=== PATIENT | female | born 1960 | race American Indian/Alaskan Native ===

== ENCOUNTER 2021-03-06 11:30 | Observation (INO) | payer MEDICARE ==
--- NOTE | 2021-03-06 11:41 | Emergency Department Report ---
ED Altered Mental Status HPI - General Chief Complaint: Medical Clearance Stated Complaint: daiylsis Time Seen by Provider: 03/06/21 11:33 - History of Present Illness Initial Comments: Patient presents by EMS secondary to altered mental status. They were called because the patient was altered and confused. They found the patient to be hypoglycemic with a glucose of 30. They administered an amp of D50. Glucose came up to 270 or so. Patient is now awake and alert. She is conversant. She states that she really just did not eat breakfast this morning because she did not have an appetite. She did not take her medications either. She does state that she takes pills for her diabetes. She did take them yesterday. Patient states she did not have much of an appetite yesterday either. She has no cough or congestion. No chest pain or shortness of breath and there is no vomiting or back pain. She has no dysuria frequency. She is currently on dialysis. The last time she was dialyzed was last Wednesday because "she was in the hospital and nobody called her to set it up." She states that somebody was "looking for a chair for her." - Related Data Home Medications Medication Instructions Recorded Confirmed Last Taken Atorvastatin [Lipitor] 40 mg PO QHS 02/03/21 02/18/21 02/17/21 21:00 carvediloL [Coreg] 12.5 mg PO DAILY 02/03/21 02/19/21 02/17/21 09:00 glipiZIDE [Glucotrol] 10 mg PO QDAY 02/03/21 02/18/21 02/17/21 18:00 amLODIPine 10 mg PO DAILY 02/19/21 02/19/21 Unknown Previous Rx's Medication Instructions Recorded Last Taken Type ALBUTEROL NEB's [Proventil 0.083% 2.5 mg IH Q4HRT PRN 10 Days #60 02/03/21 Unknown Rx NEBS] nebu Sodium Bicarbonate 1,300 mg PO TID 30 Days #180 tablet 02/03/21 Unknown Rx Acetaminophen [Acetaminophen TAB] 650 mg PO Q4H PRN tablet 02/26/21 Unknown Rx Epoetin Esvin-Epbx 10,000 Unit 10,000 unit IV FELI PRN vial 02/26/21 Unknown Rx [Retacrit] amLODIPine 10 mg PO DAILY #30 tablet 02/26/21 Unknown Rx carvediloL [Coreg] 12.5 mg PO BID #60 tablet 02/26/21 Unknown Rx Allergies Allergy/AdvReac Type Severity Reaction Status Date / Time ibuprofen AdvReac Unknown Verified 02/19/21 11:25 ED Review of Systems ROS: Stated complaint: daiylsis Other details as noted in HPI Comment: All other systems reviewed and negative Constitutional: denies: fever Eyes: denies: vision change ENT: denies: epistaxis Respiratory: denies: cough Cardiovascular: denies: chest pain Endocrine: denies: unexplained weight loss Gastrointestinal: denies: abdominal pain Genitourinary: denies: dysuria Musculoskeletal: denies: back pain Skin: denies: rash Neurological: denies: headache Hematological/Lymphatic: denies: easy bruising ED Past Medical Hx - Past Medical History Hx Hypertension: Yes Hx Congestive Heart Failure: No Hx Diabetes: Yes Hx Renal Disease: Yes (On dialysis) Hx Asthma: No Hx COPD: No - Surgical History Additional Surgical History: Toe amputation - Family History Family history: hypertension - Social History Smoking Status: Unknown if ever smoked - Medications Home Medications: Home Medications Medication Instructions Recorded Confirmed Last Taken Type ALBUTEROL NEB's [Proventil 0.083% 2.5 mg IH Q4HRT PRN 10 Days #60 02/03/21 02/19/21 Unknown Rx NEBS] nebu Atorvastatin [Lipitor] 40 mg PO QHS 02/03/21 02/18/21 02/17/21 21:00 History Sodium Bicarbonate 1,300 mg PO TID 30 Days #180 tablet 02/03/21 02/19/21 Unknown Rx carvediloL [Coreg] 12.5 mg PO DAILY 02/03/21 02/19/21 02/17/21 09:00 History glipiZIDE [Glucotrol] 10 mg PO QDAY 02/03/21 02/18/21 02/17/21 18:00 History amLODIPine 10 mg PO DAILY 02/19/21 02/19/21 Unknown History Acetaminophen [Acetaminophen TAB] 650 mg PO Q4H PRN tablet 02/26/21 Unknown Rx Epoetin Esvin-Epbx 10,000 Unit 10,000 unit IV FELI PRN vial 02/26/21 Unknown Rx [Retacrit] amLODIPine 10 mg PO DAILY #30 tablet 02/26/21 Unknown Rx carvediloL [Coreg] 12.5 mg PO BID #60 tablet 02/26/21 Unknown Rx ED Physical Exam - General Limitations: No Limitations, Other (Pulse ox noted and normal by EMS) General appearance: alert, in no apparent distress, other (Frail) - Head Head exam: Present: atraumatic, normocephalic - Eye Eye exam: Present: normal appearance, EOMI. Absent: scleral icterus - ENT ENT exam: Present: normal orophraynx, normal external ear exam - Neck Neck exam: Present: normal inspection. Absent: meningismus - Respiratory Respiratory exam: Present: normal lung sounds bilaterally. Absent: respiratory distress - Cardiovascular Cardiovascular Exam: Present: regular rate, normal rhythm - GI/Abdominal GI/Abdominal exam: Present: soft. Absent: tenderness - Extremities Exam Extremities exam: Present: normal capillary refill. Absent: calf tenderness - Back Exam Back exam: Absent: CVA tenderness (R), CVA tenderness (L) - Neurological Exam Neurological exam: Present: alert, oriented X3, CN II-XII intact. Absent: motor sensory deficit - Psychiatric Psychiatric exam: Present: normal affect, normal mood - Skin Skin exam: Present: warm, dry ED Course - Reevaluation(s) Reevaluation #1: 03/06/21 11:38 EMS was met upon arrival. Accu-Chek have been noted by EMS. Patient will be given food. Case management consult has been requested to help facilitate outpatient dialysis. Old records noted. Reevaluation #2: 03/06/21 12:31 Chemistries have been noted. Nephrology has been paged. 03/06/21 13:00 Nephrology paged. Reevaluation #3: 03/06/21 13:36 Case was discussed with Dr. Cali's nurse practitioner. They request admission to the hospitalist with dialysis planned for today. - Lab Data Result diagrams: 03/06/21 11:43 Lab Results 03/06/21 03/06/21 Range/Units 11:43 11:52 Sodium 132 L (137-145) mmol/L Potassium 4.6 (3.6-5.0) mmol/L Chloride 94.6 L (98-107) mmol/L Carbon Dioxide 19 L (22-30) mmol/L Anion Gap 23 mmol/L BUN 55 H (7-17) mg/dL Creatinine 11.5 H (0.6-1.2) mg/dL Estimated GFR 4 ml/min BUN/Creatinine Ratio 5 % Glucose 197 H (65-100) mg/dL POC Glucose 201 H (70-105) mg/dL Calcium 6.4 L (8.4-10.2) mg/dL - Medical Decision Making Patient presented with altered mental status and was found to have hypoglycemia. However it was also noted that she had not been dialyzed in over a week because outpatient dialysis was not arranged. She does have a creatinine that is almost tripled her baseline. Potassium is normal. There is no evidence of volume ov erload. I discussed the case with Dr. Cali's group and they requested admission for dialysis. Hospitalist was informed. We will proceed with admission. The hypoglycemia has been addressed, but we will continue to follow blood sugars to ensure she does not have refractory hypoglycemia. Critical Care Time: No Critical care attestation.: If time is entered above; I have spent that time in minutes in the direct care of this critically ill patient, excluding procedure time. ED Disposition Clinical Impression: ESRD on dialysis, Noncompliance Hyperglycemia due to type 2 diabetes mellitus Qualifiers: Diabetes mellitus half-way insulin use: without law enforcement officer use Qualified Code(s): E11.65 - Type 2 diabetes mellitus with hyperglycemia Disposition: 09 ADMITTED INPATIENT Is pt being admited?: Yes Condition: Stable Instructions: Diabetes Mellitus Type 2 in Adults (ED) Referrals: PRIMARY CARE, [Primary Care Provider] - 3-5 Days
[2021-03-06 12:14] LABS: Calcium 6.4 mg/dL (8.4-10.2)
--- NOTE | 2021-03-06 13:40 | History and Physical Report ---
History of Present Illness Chief complaint: I got sick History of present illness: 60 YO Female with HTN, DM, Asthma Mild Intermittent, ESRD noncompliant with initiation of dialysis presents ED for evaluation. Patient has diminished cognition and provides limited history. Patient history taken EMS staff, ED staff. As per staff the patient was found confused and a good Yarsani notified EMS. Upon arrival the patient was found to be in distress and hypoglycemic with glucose of 30. Patient was treated with D50 and subsequent transported to [facility] for further care and evaluation of the aforementioned symptoms. The patient was seen and evaluated in the emergency department. All lab and imaging studies reviewed. Patient was found to have improved cognition at the time my evaluation but was also found to have end-stage renal disease in need of dialysis, metabolic acidosis, and metabolic encephalopathy. Patient placed in observation status and admitted to medical floor. Nephrology team consulted in ED. Patient denies fever, chills, chest pain, palpitation, adductive cough, skin rash, recent contact, known exposure to COVID-19. All medication listed at time of admission has been reconciled. Advanced care planning conducted in ED. previous admission on 02/18/2021 reviewed. Past History Past Medical History: diabetes, ESRD, hypertension Past Surgical History: Other (To hypertension, dialysis access) Social history: . denies: smoking, alcohol abuse Family history: hypertension Medications and Allergies Allergies Allergy/AdvReac Type Severity Reaction Status Date / Time ibuprofen AdvReac Unknown Verified 02/19/21 11:25 Home Medications Medication Instructions Recorded Confirmed Last Taken Type ALBUTEROL NEB's [Proventil 0.083% 2.5 mg IH Q4HRT PRN 10 Days #60 02/03/21 02/19/21 Unknown Rx NEBS] nebu Atorvastatin [Lipitor] 40 mg PO QHS 02/03/21 02/18/21 02/17/21 21:00 History Sodium Bicarbonate 1,300 mg PO TID 30 Days #180 tablet 02/03/21 02/19/21 Unknown Rx carvediloL [Coreg] 12.5 mg PO DAILY 02/03/21 02/19/21 02/17/21 09:00 History glipiZIDE [Glucotrol] 10 mg PO QDAY 02/03/21 02/18/21 02/17/21 18:00 History amLODIPine 10 mg PO DAILY 02/19/21 02/19/21 Unknown History Acetaminophen [Acetaminophen TAB] 650 mg PO Q4H PRN tablet 02/26/21 Unknown Rx Epoetin Esvin-Epbx 10,000 Unit 10,000 unit IV FELI PRN vial 02/26/21 Unknown Rx [Retacrit] amLODIPine 10 mg PO DAILY #30 tablet 02/26/21 Unknown Rx carvediloL [Coreg] 12.5 mg PO BID #60 tablet 02/26/21 Unknown Rx Review of Systems Constitutional: no weight loss, no weight gain, no fever, no chills Ears, nose, mouth and throat: no ear pain, no ear discharge, no tinnitis, no nose pain, no nasal congestion Breasts: no change in shape, no swelling, no mass Cardiovascular: no chest pain, no orthopnea, no palpitations, no rapid/irregular heart beat, no edema, no shortness of breath Respiratory: no cough, no excessive sputum, no hemoptysis Gastrointestinal: no abdominal pain, no nausea, no vomiting, no diarrhea Genitourinary Female: no pelvic pain, no flank pain, no dysuria, no urinary frequency, no urgency Rectal: no pain, no incontinence Musculoskeletal: no neck stiffness, no neck pain, no low back pain Integumentary: no rash, no pruritis, no redness, no sores, no wounds Neurological: no head injury, no transient paralysis, no paralysis, no parathesias, no numbness, no tingling Psychiatric: no anxiety, no memory loss, no change in sleep habits, no sleep disturbances, no insomnia, no hypersomnia Endocrine: no cold intolerance, no polyphagia, no polydipsia Hematologic/Lymphatic: no easy bruising, no easy bleeding, no lymphadenopathy, no lymphedema Allergic/Immunologic: no urticaria, no allergic rhinitis, no persistent infections Exam - Constitutional General appearance: Present: mild distress, obese - EENT Eyes: Present: PERRL ENT: hearing intact, clear oral mucosa - Neck Neck: Present: supple, normal ROM - Respiratory Respiratory effort: normal Respiratory: bilateral: CTA - Cardiovascular Heart Sounds: Present: S1 & S2. Absent: rub, click - Extremities Extremities: pulses symmetrical, No edema Peripheral Pulses: within normal limits - Abdominal General gastrointestinal: Present: soft, non-tender, non-distended, normal bowel sounds Female genitourinary: Present: normal - Integumentary Integumentary: Present: clear, warm, dry - Musculoskeletal Musculoskeletal: gait normal, strength equal bilaterally - Psychiatric Psychiatric: appropriate mood/affect, intact judgment & insight - Neurologic Neurologic: CNII-XII intact, moves all extremities Results - Labs CBC & Chem 7: 03/06/21 11:43 Labs: Abnormal lab results 03/06/21 03/06/21 Range/Units 11:43 11:52 Sodium 132 L (137-145) mmol/L Chloride 94.6 L (98-107) mmol/L Carbon Dioxide 19 L (22-30) mmol/L BUN 55 H (7-17) mg/dL Creatinine 11.5 H (0.6-1.2) mg/dL Glucose 197 H (65-100) mg/dL POC Glucose 201 H (70-105) mg/dL Calcium 6.4 L (8.4-10.2) mg/dL Assessment and Plan - Patient Problems (1) ESRD on dialysis Current Visit: Yes Status: Acute Plan to address problem: Nephrology team consulted in ED, dialysis as per renal team, supportive care, avoid nephrotoxic agents. (2) Acidosis Current Visit: Yes Status: Acute Plan to address problem: BMP, urgent dialysis (3) DVT prophylaxis Current Visit: Yes Status: Acute Plan to address problem: SCDs bilateral lower extremities while in bed, patient is ambulatory (4) Advance care planning Current Visit: No Status: Acute Plan to address problem: Disease education conducted, care plan discussed, diagnoses discussed, prognosis discussed, patient is full code. Patient knowledges understanding agree with care plan, +30 minutes. Case management consulted in ED for assistance with discharge planning and arrangement of outpatient dialysis.
[2021-03-06] MEDS ORDERED: SODIUM CHLORIDE 0.9% 100 ML IV PRN (14:08)
[2021-03-06] MEDS ORDERED: ONDANSETRON 4 MG/2 ML INJ IV PRN (16:10)
[2021-03-06] MEDS ORDERED: ACETAMINOPHEN 325 MG TAB PO PRN (16:10)
[2021-03-06] MEDS ORDERED: oxyCODONE /ACETAMINOPHEN 5-325MG TAB PO PRN (16:10)
[2021-03-06] MEDS ORDERED: ALBUTEROL 2.5 MG/3 ML NEBU IH PRN (16:10)
[2021-03-06] MEDS ORDERED: HYDROmorphone 1 MG/1 ML INJ IV PRN (16:10)
[2021-03-06] MEDS ORDERED: EPOETIN ALFA-EPBX 10,000 UNIT/1 ML VIAL IV PRN (16:13)
[2021-03-06] MEDS: INSULIN LISPRO 100 UNIT/ML SUB-Q SCH (17:06)
--- NOTE | 2021-03-06 20:58 | Event Note ---
patient being admitted for end-stage kidney disease does not have a dedicated dialysis clinic, hemodialysis orders have been placed, Patient noted to be hypocalcemic, will give oral calcium, start the patient on vitamin D empirically along with calcitriol, Would also give 1 amp of calcium gluconate Check renal labs in the morning,
--- NOTE | 2021-03-06 21:00 | Consultation ---
Medications and Allergies Allergies Allergy/AdvReac Type Severity Reaction Status Date / Time ibuprofen AdvReac Unknown Verified 02/19/21 11:25 Home Medications Medication Instructions Recorded Confirmed Last Taken Type ALBUTEROL NEB's [Proventil 0.083% 2.5 mg IH Q4HRT PRN 10 Days #60 02/03/2102/19 Unknown Rx NEBS] nebu Atorvastatin [Lipitor] 40 mg PO QHS 02/03/21 02/18/21 02/17/21 21:00 History Sodium Bicarbonate 1,300 mg PO TID 30 Days #180 tablet 02/03/21 02/19/21 Unknown Rx carvediloL [Coreg] 12.5 mg PO DAILY 02/03/21 02/19/21 02/17/21 09:00 History glipiZIDE [Glucotrol] 10 mg PO QDAY 02/03/21 02/18/21 02/17/21 18:00 History amLODIPine 10 mg PO DAILY 02/19/21 02/19/21 Unknown History Acetaminophen [Acetaminophen TAB] 650 mg PO Q4H PRN tablet 02/26/21 Unknown Rx Epoetin Esvin-Epbx 10,000 Unit 10,000 unit IV FELI PRN vial 02/26/21 Unknown Rx [Retacrit] amLODIPine 10 mg PO DAILY #30 tablet 02/26/21 Unknown Rx carvediloL [Coreg] 12.5 mg PO BID #60 tablet 02/26/21 Unknown Rx Active Meds: Active Medications Acetaminophen (Acetaminophen 325 Mg Tab) 650 mg PO Q4H PRN PRN Reason: Pain MILD(1-3)/Fever >100.5/[facility]LEY Albuterol (Albuterol 2.5 Mg/3 Ml Nebu) 2.5 mg IH Q4HRT PRN PRN Reason: Shortness Of Breath Amlodipine Besylate (Amlodipine 10 Mg Tab) 10 mg PO DAILY [facility] Atorvastatin Calcium (Atorvastatin 40 Mg Tab) 40 mg PO QHS [facility] Calcitriol (Calcitriol 0.5 Mcg Cap) 0.5 mcg PO QDAY [facility] Calcium Carbonate/Glycine (Calcium Carbonate 500 Mg Tab Chew) 1,000 mg PO BID [facility] Carvedilol (Carvedilol 12.5 Mg Tab) 12.5 mg PO BID [facility] Dextrose (Dextrose 50% In Water (25gm) 50 Ml Syringe) 50 ml IV Q30MIN PRN; Protocol PRN Reason: Hypoglycemia Ergocalciferol (Ergocalciferol (Vit D2) 50,000 Unit Cap) 50,000 unit PO Fr [facility] Hydromorphone HCl (Hydromorphone 1 Mg/1 Ml Inj) 0.5 mg IV Q23H PRN PRN Reason: Pain , Severe (7-10) Sodium Chloride (Nacl 0.9%) 100 mls @ 999 mls/hr IV FELI PRN PRN Reason: Hypotension Insulin Human Lispro (Insulin Lispro 100 Unit/Ml) 0 unit SUB-Q ACHS [facility]; Protocol Last Admin: 03/06/21 17:06 Dose: Not Given Ondansetron HCl (Ondansetron 4 Mg/2 Ml Inj) 4 mg IV Q8H PRN PRN Reason: Nausea And Vomiting Oxycodone/Acetaminophen (Oxycodone /Acetaminophen 5-325mg Tab) 1 tab PO Q16H PRN PRN Reason: Pain, Moderate (4-6) Sodium Bicarbonate (Sodium Bicarbonate 650 Mg Tab) 1,300 mg PO TID [facility] Sodium Chloride (Sodium Chloride 0.9% 10 Ml Flush Syringe) 10 ml IV BID PEDRO Sodium Chloride (Sodium Chloride 0.9% 10 Ml Flush Syringe) 10 ml IV PRN PRN PRN Reason: LINE FLUSH Results - Lab Results 03/06/21 11:43 Most recent lab results Calcium 6.4 mg/dL (8.4-10.2) L 03/06/21 11:43
[2021-03-06] MEDS: DEXTROSE 50% IN WATER (25GM) 50 ML SYRINGE IV PRN ×2 (22:56→22:59)
[2021-03-07] MEDS: SODIUM BICARBONATE 650 MG TAB PO SCH ×3 (05:23→16:20)
[2021-03-07] MEDS: INSULIN LISPRO 100 UNIT/ML SUB-Q SCH ×4 (05:24→16:48)
[2021-03-07] MEDS: carvediloL 12.5 MG TAB PO SCH ×2 (05:24→09:15)
[2021-03-07] MEDS: CALCIUM CARBONATE 500 MG TAB CHEW PO SCH ×2 (05:25→09:15)
[2021-03-07] MEDS: CALCITRIOL 0.5 MCG CAP PO SCH ×2 (05:27→09:15)
[2021-03-07] MEDS ORDERED: ERGOCALCIFEROL (VIT D2) 50,000 UNIT CAP PO SCH (08:00)
--- NOTE | 2021-03-07 09:42 | Consultation ---
History of Present Illness - Reason for Consult Consult date: 03/07/21 end stage renal disease Requesting physician: JERICHO ORTIZ - History of Present Illness 60 YO Female with HTN, DM, Asthma Mild Intermittent, ESRD presented to the emergency room yesterday for evaluation . Patient had diminished cognition and provided limited history. Patient history taken EMS staff, ED staff. As per staff the patient was found confused and a good Scientology notified EMS. Upon arrival the patient was found to be in distress and hypoglycemic with glucose of 30. Patient was treated with D50 and subsequent transported to [facility] for further care and evaluation of the aforementioned symptoms. The patient was seen and evaluated in the emergency department. All lab and imaging studies reviewed. Patient was found to have improved cognition at the time my evaluation but was also found to have end-stage renal disease in need of dialysis, metabolic acidosis, and metabolic encephalopathy. Patient placed in observation status and admitted to medical floor. Patient received dialysis treatment yesterday. She does appear to be more alert today. Denies any shortness of breath. Patient states that she does not have a dialysis clinic at this time Past History Past Medical History: diabetes, ESRD, hypertension Past Surgical History: Other (To hypertension, dialysis access) Social history: . denies: smoking, alcohol abuse Family history: hypertension Medications and Allergies Allergies Allergy/AdvReac Type Severity Reaction Status Date / Time ibuprofen AdvReac Unknown Verified 03/07/21 13:19 Home Medications Medication Instructions Recorded Confirmed Last Taken Type ALBUTEROL NEB's [Proventil 0.083% 2.5 mg IH Q4HRT PRN 10 Days #60 02/03/2109/19 Unknown Rx NEBS] nebu Atorvastatin [Lipitor] 40 mg PO QHS 02/03/21 03/07/21 02/17/21 21:00 History Sodium Bicarbonate 1,300 mg PO TID 30 Days #180 tablet 02/03/21 03/07/21 Unknown Rx glipiZIDE [Glucotrol] 10 mg PO QDAY 02/03/21 03/07/21 02/17/21 18:00 History Acetaminophen [Acetaminophen TAB] 650 mg PO Q4H PRN tablet 02/26/21 03/07/21 Unknown Rx amLODIPine 10 mg PO DAILY #30 tablet 02/26/21 03/07/21 Unknown Rx carvediloL [Coreg] 12.5 mg PO BID #60 tablet 02/26/21 03/07/21 Unknown Rx calcitrioL [Rocaltrol] 0.5 mcg PO QDAY 30 Days #30 capsule 03/07/21 Unknown Rx Active Meds: Active Medications Acetaminophen (Acetaminophen 325 Mg Tab) 650 mg PO Q4H PRN PRN Reason: Pain MILD(1-3)/Fever >100.5/[facility] Albuterol (Albuterol 2.5 Mg/3 Ml Nebu) 2.5 mg IH Q4HRT PRN PRN Reason: Shortness Of Breath Atorvastatin Calcium (Atorvastatin 40 Mg Tab) 40 mg PO QHS [facility] Last Admin: 03/07/21 05:26 Dose: Not Given Calcitriol (Calcitriol 0.5 Mcg Cap) 0.5 mcg PO QDAY [facility] Last Admin: 03/07/21 09:15 Dose: 0.5 mcg Calcium Carbonate/Glycine (Calcium Carbonate 500 Mg Tab Chew) 1,000 mg PO BID [facility] Last Admin: 03/07/21 09:15 Dose: 1,000 mg Carvedilol (Carvedilol 12.5 Mg Tab) 12.5 mg PO BID [facility] Last Admin: 03/07/21 09:15 Dose: 12.5 mg Dextrose (Dextrose 50% In Water (25gm) 50 Ml Syringe) 50 ml IV Q30MIN PRN; Protocol PRN Reason: Hypoglycemia Last Admin: 03/06/21 22:59 Dose: 50 ml Ergocalciferol (Ergocalciferol (Vit D2) 50,000 Unit Cap) 50,000 unit PO Fr [facility] Last Admin: 03/07/21 09:15 Dose: 50,000 unit Hydromorphone HCl (Hydromorphone 1 Mg/1 Ml Inj) 0.5 mg IV Q23H PRN PRN Reason: Pain , Severe (7-10) Sodium Chloride (Nacl 0.9%) 100 mls @ 999 mls/hr IV FELI PRN PRN Reason: Hypotension Insulin Human Lispro (Insulin Lispro 100 Unit/Ml) 0 unit SUB-Q ACHS [facility]; Protocol Last Admin: 03/07/21 09:14 Dose: Not Given Ondansetron HCl (Ondansetron 4 Mg/2 Ml Inj) 4 mg IV Q8H PRN PRN Reason: Nausea And Vomiting Oxycodone/Acetaminophen (Oxycodone /Acetaminophen 5-325mg Tab) 1 tab PO Q16H PRN PRN Reason: Pain, Moderate (4-6) Sodium Bicarbonate (Sodium Bicarbonate 650 Mg Tab) 1,300 mg PO TID [facility] Last Admin: 03/07/21 09:15 Dose: 1,300 mg Sodium Chloride (Sodium Chloride 0.9% 10 Ml Flush Syringe) 10 ml IV BID [facility] Last Admin: 03/07/21 09:15 Dose: 10 ml Sodium Chloride (Sodium Chloride 0.9% 10 Ml Flush Syringe) 10 ml IV PRN PRN PRN Reason: LINE FLUSH Exam - Vital Signs Vital signs: Vital Signs BP Pulse Ox 154/85 95 03/06/21 20:00 03/06/21 20:00 - General Appearance General appearance: well-developed, well-nourished, appears stated age EENT: PERRL, mucous membranes moist Neck: Present: neck supple, trachea midline, Other (IJ PermCath in place). Absent: JVD/HJR, Masses Respiratory: Clear to Ascultation Heart: regular, normal heart rate Gastrointestinal: Present: normal, normoactive bowel sounds Integumentary: no rash, other (1+ edema) Results - Lab Results 03/07/21 04:40 Most recent lab results Calcium 6.0 mg/dL (8.4-10.2) L 03/07/21 04:40 Assessment and Plan Impression * End-stage renal disease on maintenance hemodialysis * Altered mental status * Hypoglycemia * Hypertension * Fluid overload * COVID-19 infection Recommendations Patient had uneventful hemodialysis yesterday Continue dialysis on TTS schedule while in-house Remove fluid as tolerated with dialysis Management of COVID-19 infection as per primary team Avoid nephrotoxins Adjust diet and meds for ESRD state Binders with meals Epogen with dialysis Thank you very much for the consultation. Shall follow along with you
[2021-03-07] MEDS ORDERED: amLODIPine 10 MG TAB PO SCH (10:00)
[2021-03-07] MEDS ORDERED: SODIUM CHLORIDE 0.9% 100 ML IV PRN (10:00)
[2021-03-07 16:28] VITALS: BP 111/68
--- NOTE | 2021-03-07 16:43 | Discharge Summary ---
Providers - Providers Date of Admission: 03/06/21 13:38 Attending physician: JERICHO ORTIZ MD 03/06/21 11:33 Consult to Case Management [CONS] Stat Services Needed at Discharge: Other Notified:: secretary bookkeeper Additional Physician Instructions: outpatient dialysis 03/06/21 14:59 Consult to Physician [CONS] Routine Comment: Consulting Provider: KASSY CHAWLA Physician Instructions: Reason For Exam: esrd Primary care physician: SWEET DOUGH MIXER Hospitalization Condition: Stable Exam - Constitutional Vitals: Temp Pulse Resp BP Pulse Ox 100.5 F H 95 H 18 111/68 100 03/07/21 11:38 03/07/21 11:38 03/07/21 04:35 03/07/21 15:11 03/07/21 15:11 Plan Care Plan Goals: You have been accepted at [facility] for dialysis on Mondays, Wednesdays, and Fridays at 10:30 AM. Your first treatment is set up for WednesdayMarch 10 at 10:30 AM. You can call [phone] for more information. If you are unable to receive dialysis at this center, report the nearest emergency department to get dialysis. Follow up with: ANTOINE GARCIA MD [Primary Care Provider] - 3-5 Days Prescriptions: calcitrioL [Rocaltrol] 0.5 mcg PO QDAY 30 Days #30 capsule
== END 2021-03-07 17:22 | disposition home or self-care (01) ==
LOC: ED 11:30 → 3A 13:38 → 4A 20:16
PROVIDERS: ADMIT Internal Medicine; ATTEND Student in an Organized Health Care Education/Training Program
DX: U07.1 COVID-19 (principal); I12.0 Hypertensive chronic kidney disease with stage 5 chronic kidney disease or end stage renal disease; N18.6 End stage renal disease; E11.22 Type 2 diabetes mellitus with diabetic chronic kidney disease; E11.65 Type 2 diabetes mellitus with hyperglycemia; Z79.899 Other long term (current) drug therapy; Z98.890 Other specified postprocedural states; Z99.2 Dependence on renal dialysis
CPT/HCPCS: 36415; 80048; 82962; 96374; 99284; G0257; G0378; J3490; U0003

== ENCOUNTER 2021-03-26 19:08 | Observation (INO) | payer MEDICARE ==
--- NOTE | 2021-03-26 20:02 | Emergency Department Report ---
ED General Adult HPI - General Chief complaint: Altered Mental Status Stated complaint: LETHARGIC Time Seen by Provider: 03/26/21 19:44 Source: EMS Mode of arrival: Stretcher Limitations: Altered Mental Status - History of Present Illness Initial comments: Chief complaint: "I keep soiling myself." Lethargy shortness of breath HPI: Renny Cho provided history via phone This is a 60-year-old female with history of end-stage renal disease on hemodialysis, hypertension, diabetes mellitus, blindness, medication noncomplian ce, COVID-19 who presents with lethargy, shortness of breath. Since discharge 13 days ago from this hospital, patient has had lethargy. She has had fecal incontinence. She has mostly been bed bound. She has slept most of the day for the past 2 weeks. Daughter called 911 for worsening confusion and shortness of breath. Patient tells me that she "keeps pulling herself". She also has mild frontal headache. Patient tells me that she does not go to dialysis due to lack of transportation. I spoke with daughter. Patient chooses not to go to dialysis. She does not have a instruments sales representative. She has mostly been overall noncompliant with outpatient dialysis care due to her own volition. She does continue to make urine. During most recent admission this hospital earlier this month, patient was diagnosed with COVID-19 infection, community-acquired pneumonia. She required oxygen due to hypoxia at that time. Of note patient was admitted 4 times to this hospital between February 02 and March 09. -: Gradual, days(s) (13 days since discharge from the hospital.) Severity scale (0 -10): 0 Consistency: constant Improves with: none Worsens with: none Associated Symptoms: other (Diarrhea, lethargy, failure to thrive, dyspnea) Treatments Prior to Arrival: other (EMS transport) - Related Data Home Medications Medication Instructions Recorded Confirmed Last Taken Atorvastatin [Lipitor] 40 mg PO QHS 02/03/21 03/12/21 02/17/21 21:00 glipiZIDE [Glucotrol] 10 mg PO QDAY 02/03/21 03/12/21 02/17/21 18:00 Previous Rx's Medication Instructions Recorded Last Taken Type Sodium Bicarbonate 1,300 mg PO TID 30 Days #180 tablet 02/03/21 Unknown Rx amLODIPine 10 mg PO DAILY #30 tablet 02/26/21 Unknown Rx carvediloL [Coreg] 12.5 mg PO BID #60 tablet 02/26/21 Unknown Rx calcitrioL [Rocaltrol] 0.5 mcg PO QDAY 30 Days #30 capsule 03/07/21 Unknown Rx Sevelamer Carbonate [Renvela] 800 mg PO AC #90 tablet 03/13/21 Unknown Rx cefUROXime [Ceftin] 250 mg PO Q12H #4 tablet 03/13/21 Unknown Rx Allergies Allergy/AdvReac Type Severity Reaction Status Date / Time ibuprofen AdvReac Unknown Verified 03/10/21 14:08 ED Review of Systems ROS: Stated complaint: LETHARGIC Other details as noted in HPI Comment: All other systems reviewed and negative Constitutional: malaise Respiratory: denies: cough, shortness of breath Cardiovascular: denies: chest pain Gastrointestinal: diarrhea. denies: abdominal pain, nausea, vomiting Neurological: headache ED Past Medical Hx - Past Medical History Previous Medical History?: Yes Hx Hypertension: Yes Hx Congestive Heart Failure: No Hx Diabetes: Yes Hx Renal Disease: Yes (On dialysis) Hx Asthma: No Hx COPD: No - Surgical History Past Surgical History?: Yes Additional Surgical History: Toe amputation - Social History Smoking Status: Never Smoker - Medications Home Medications: Home Medications Medication Instructions Recorded Confirmed Last Taken Type Atorvastatin [Lipitor] 40 mg PO QHS 02/03/21 03/12/21 02/17/21 21:00 History Sodium Bicarbonate 1,300 mg PO TID 30 Days #180 tablet 02/03/21 03/12/21 Unknown Rx glipiZIDE [Glucotrol] 10 mg PO QDAY 02/03/21 03/12/21 02/17/21 18:00 History amLODIPine 10 mg PO DAILY #30 tablet 02/26/21 03/12/21 Unknown Rx carvediloL [Coreg] 12.5 mg PO BID #60 tablet 02/26/21 03/12/21 Unknown Rx calcitrioL [Rocaltrol] 0.5 mcg PO QDAY 30 Days #30 capsule 03/07/21 03/12/21 Unknown Rx Sevelamer Carbonate [Renvela] 800 mg PO AC #90 tablet 03/13/21 Unknown Rx cefUROXime [Ceftin] 250 mg PO Q12H #4 tablet 03/13/21 Unknown Rx ED Physical Exam - General Limitations: Altered Mental Status General appearance: alert, in no apparent distress - Head Head exam: Present: atraumatic, normocephalic - Eye Eye exam: Present: normal appearance - ENT ENT exam: Present: mucous membranes moist - Neck Neck exam: Present: normal inspection, full ROM - Respiratory Respiratory exam: Present: normal lung sounds bilaterally. Absent: respiratory distress, wheezes, rales, rhonchi - Cardiovascular Cardiovascular Exam: Present: regular rate, normal rhythm, normal heart sounds, other (Right-sided permacath, site without evidence of infection no erythema no purulence). Absent: systolic murmur, diastolic murmur, rubs, gallop - GI/Abdominal GI/Abdominal exam: Present: soft, normal bowel sounds. Absent: distended, tenderness, guarding, rebound - Extremities Exam Extremities exam: Present: normal inspection - Neurological Exam Neurological exam: Present: alert, other (Oriented to name and situation unclear of place and date) - Psychiatric Psychiatric exam: Present: normal mood, flat affect - Skin Skin exam: Present: warm, dry, intact, normal color. Absent: rash ED Course Vital Signs 03/26/21 03/26/21 19:42 20:20 Temperature 98.2 F 99.1 F Pulse Rate 81 80 Respiratory 19 14 Rate Blood Pressure 116/67 116/68 [Left] O2 Sat by Pulse 100 99 Oximetry ED Medical Decision Making - Lab Data Result diagrams: 03/26/21 20:03 03/26/21 20:03 - EKG Data -: EKG Interpreted by [facility] EKG shows normal: sinus rhythm Rate: normal - EKG Data 03/26/21 22:10 EKG obtained 2200 EKG interpreted by me Rate 80 bpm normal sinus rhythm with prolonged SC interval normal QTC right axis deviation no ST elevation normal amplitude T waves - Radiology Data Radiology results: report reviewed Patient Name: MIRTHA ORTA Gender: Female Date of : 1960 Referring Provider: TAMRA GUNDERSON Organization: [facility] Accession Number: [id number] Requested Date: March 26, 2021 19:44 Report Status: Final Requested Procedure: 1 Procedure Description: XR chest 1V ap Modality: XR Findings Reporting MD: Marcello Bedoya Dictation Time: March 26, 2021 19:45 Almond Blancher Operator: Not available Block Mechanic Date: CHEST 1 VIEW 03/26/2021 8:00 PM INDICATION / CLINICAL INFORMATION: ESRD on hemodialysis, dyspnea. COMPARISON: 03/09/2021. FINDINGS: SUPPORT DEVICES: Dialysis catheter unchanged. HEART / MEDIASTINUM: Stable. LUNGS / PLEURA: Persistent patchy opacity at the lung bases right greater than left with mild improvement. No pneumothorax. ADDITIONAL FINDINGS: No significant additional findings. IMPRESSION: Residual basilar opacity with mild improvement overall. Signer Name: Marcello Bedoya MD Signed: 03/26/2021 7:45 PM Workstation Name: [id number] - Medical Decision Making 1. Acute uremic encephalopathy due to medical noncompliance. Patient has chosen not to undergo dialysis therapy. She has only received dialysis during recent hospital admissions according to daughter. She does not have a instruments sales representative. 2. Pulmonary edema vs resolving pneumonia on chest radiograph. No fever cough observed. No hypoxia. Complications of medication noncompliance include hyperkalemia, metabolic acidosis, uremia. Hyperkalemia addressed with calcium gluconate, sodium bicarb grace, insulin/ dextrose. Other noted abnormality hypokalemia. Venous pH 7.29 patient has anemia of chronic disease. I have consulted nephrology team certified medical transcriptionist. I spoke with Dr. Bartholomew. Admitted to hospitalist service Critical care attestation.: If time is entered above; I have spent that time in minutes in the direct care of this critically ill patient, excluding procedure time. ED Disposition Clinical Impression: Uremic encephalopathy, Hypervolemia, ESRD needing dialysis, Noncompliance, Hyperkalemia, Pulmonary edema Disposition: ADMITTED INPATIENT Is pt being admited?: Yes Does the pt Need Aspirin: No Condition: Stable Instructions: Pulmonary Edema (ED) Referrals: PRIMARY CARE, [Primary Care Provider] - 3-5 Days
--- NOTE | 2021-03-26 20:49 | XRay Report ---
CHEST 1 VIEW 03/26/2021 8:00 PM INDICATION / CLINICAL INFORMATION: ESRD on hemodialysis, dyspnea. COMPARISON: 03/09/2021. FINDINGS: SUPPORT DEVICES: Dialysis catheter unchanged. HEART / MEDIASTINUM: Stable. LUNGS / PLEURA: Persistent patchy opacity at the lung bases right greater than left with mild improve ment. No pneumothorax. ADDITIONAL FINDINGS: No significant additional findings. IMPRESSION: Residual basilar opacity with mild improvement overall. Signer Name: Marcello Bedoya MD Signed: 03/26/2021 8:45 PM Workstation Name: [id number]
[2021-03-26 20:51] LABS: Basophils # (Auto) 0.1 K/mm3 (0.0-0.1); Basophils % (Auto) 0.8 % (0.0-1.8); Eosinophils # (Auto) 0.1 K/mm3 (0.0-0.4); Eosinophils % (Auto) 0.9 % (0.0-4.3); Hematocrit 27.3 % (30.3-42.9); Hemoglobin 8.7 gm/dl (10.1-14.3); Lymphocytes % (Auto) 13.2 % (13.4-35.0); Mean Corpuscular HGB Conc 32 % (30-34); Mean Corpuscular Volume 95 fl (79-97); Monocytes # (Auto) 0.6 K/mm3 (0.0-0.8); Monocytes % (Auto) 7.4 % (0.0-7.3); Platelet Count 171 K/mm3 (140-440); Red Blood Count 2.89 M/mm3 (3.65-5.03); Red Cell Distribution Width 14.2 % (13.2-15.2)
[2021-03-26 21:09] LABS: Calcium 6.7 mg/dL (8.4-10.2)
[2021-03-26] MEDS ORDERED: CALCIUM GLUCONATE 1,000 MG in SODIUM CHLORIDE 0.9% 100 ML IV ONE (21:50)
[2021-03-26] MEDS ORDERED: SODIUM BICARB 8.4% 50 MEQ/50 ML SYRINGE IV ONE (21:50)
[2021-03-26] MEDS ORDERED: INSULIN REGULAR, HUMAN 100 UNITS/1 ML IV ONE (21:51)
[2021-03-26] MEDS ORDERED: DEXTROSE 50% IN WATER (25GM) 50 ML SYRINGE IV ONE (21:51)
[2021-03-26] MEDS ORDERED: CALC GLUCONATE 1GM/NS 100 ML 1 GM/100 ML BAG IV ONE (22:10)
[2021-03-26] MEDS ORDERED: ACETAMINOPHEN 325 MG TAB PO PRN (22:37)
[2021-03-26] MEDS ORDERED: HYDROmorphone 1 MG/1 ML INJ IV PRN (22:37)
[2021-03-26] MEDS ORDERED: MORPHINE 2 MG/1 ML INJ IV PRN (22:37)
[2021-03-26] MEDS ORDERED: ONDANSETRON 4 MG/2 ML INJ IV PRN (22:37)
[2021-03-26] MEDS ORDERED: ALBUTEROL 2.5 MG/3 ML NEBU IH PRN (22:37)
[2021-03-26] MEDS ORDERED: DEXTROSE 50% IN WATER (25GM) 50 ML SYRINGE IV PRN (22:37)
--- NOTE | 2021-03-26 22:44 | History and Physical Report ---
History of Present Illness Date of examination: 03/26/21 Date of admission: 03/26/21 Chief complaint: Altered mental status History of present illness: 60-year-old female with history of hypertension, diabetes mellitus, blindness, medication noncompliance, COVID-19 , end-stage renal disease on hemodialysis was brought to the emergency room because of lethargy, shortness of breath. Since discharge 13 days ago from this hospital, patient has had lethargy. She has had fecal incontinence. She has mostly been bed bound. She has slept most of the day for the past 2 weeks. Daughter called 911 for worsening confusion and shortness of breath. Patient tells me that she "keeps pulling herself". She also has mild frontal headache. Patient tells me that she does not go to dialysis due to lack of transportation. During most recent admission this hospital earlier this month, patient was diagnosed with COVID-19 infection, community-acquired pneumonia. She required oxygen due to hypoxia at that time. Of note patient was admitted 4 times to this hospital between February 02 and March 09. In the emergency room patient is found to have volume overload. BUN is 100 creatinine 18.6, bicarb 14 and potassium 5.9 .Hyperkalemia addressed with calcium gluconate, sodium bicarbonate, insulin/ dextrose. Case discussed with on-call fitness teacher for hemodialysis. Past History Past Medical History: diabetes, ESRD, hypertension, renal failure Past Surgical History: Other (Toe amputation) Medications and Allergies Allergies Allergy/AdvReac Type Severity Reaction Status Date / Time ibuprofen AdvReac Unknown Verified 03/10/21 14:08 Home Medications Medication Instructions Recorded Confirmed Last Taken Type Atorvastatin [Lipitor] 40 mg PO QHS 02/03/21 03/12/21 02/17/21 21:00 History Sodium Bicarbonate 1,300 mg PO TID 30 Days #180 tablet 02/03/21 03/12/21 Unknown Rx glipiZIDE [Glucotrol] 10 mg PO QDAY 02/03/21 03/12/21 02/17/21 18:00 History amLODIPine 10 mg PO DAILY #30 tablet 02/26/21 03/12/21 Unknown Rx carvediloL [Coreg] 12.5 mg PO BID #60 tablet 02/26/21 03/12/21 Unknown Rx calcitrioL [Rocaltrol] 0.5 mcg PO QDAY 30 Days #30 capsule 03/07/21 03/12/21 Unknown Rx Sevelamer Carbonate [Renvela] 800 mg PO AC #90 tablet 03/13/21 Unknown Rx cefUROXime [Ceftin] 250 mg PO Q12H #4 tablet 03/13/21 Unknown Rx Review of Systems All systems: negative Constitutional: fatigue, malaise, lethargy, other (Headache) Neurological: change in mentation Exam - Constitutional Vitals: Temp Pulse Resp BP Pulse Ox 99.1 F 81 16 115/68 99 03/26/21 20:20 03/26/21 22:01 03/26/21 22:01 03/26/21 22:01 03/26/21 20:20 General appearance: Present: mild distress, well-nourished - EENT Eyes: Present: PERRL ENT: hearing intact, clear oral mucosa - Neck Neck: Present: supple, normal ROM - Respiratory Respiratory effort: normal Respiratory: bilateral: diminished - Cardiovascular Heart Sounds: Present: S1 & S2. Absent: rub, click - Extremities Extremities: pulses symmetrical, No edema Peripheral Pulses: within normal limits - Abdominal General gastrointestinal: Present: soft, non-tender, non-distended, normal bowel sounds Female genitourinary: Present: normal - Integumentary Integumentary: Present: clear, warm, dry - Musculoskeletal Musculoskeletal: gait normal, strength equal bilaterally - Psychiatric Psychiatric: other (Patient is confused) - Neurologic Neurologic: CNII-XII intact, moves all extremities, other (Patient is confused) Results - Labs CBC & Chem 7: 03/26/21 20:03 03/26/21 20:03 Labs: Laboratory Last Values WBC 7.7 K/mm3 (4.5-11.0) 03/26/21 20:03 RBC 2.89 M/mm3 (3.65-5.03) L 03/26/21 20:03 Hgb 8.7 gm/dl (10.1-14.3) L 03/26/21 20:03 Hct 27.3 % (30.3-42.9) L 03/26/21 20:03 MCV 95 fl (79-97) 03/26/21 20:03 MCH 30 pg (28-32) 03/26/21 20:03 MCHC 32 % (30-34) 03/26/21 20:03 RDW 14.2 % (13.2-15.2) 03/26/21 20:03 Plt Count 171 K/mm3 (140-440) 03/26/21 20:03 Lymph % (Auto) 13.2 % (13.4-35.0) L 03/26/21 20:03 [facility] % (Auto) 7.4 % (0.0-7.3) H 03/26/21 20:03 Eos % (Auto) 0.9 % (0.0-4.3) 03/26/21 20:03 Baso % (Auto) 0.8 % (0.0-1.8) 03/26/21 20:03 Lymph # (Auto) 1.0 K/mm3 (1.2-5.4) L 03/26/21 20:03 [facility] # (Auto) 0.6 K/mm3 (0.0-0.8) 03/26/21 20:03 Eos # (Auto) 0.1 K/mm3 (0.0-0.4) 03/26/21 20:03 Baso # (Auto) 0.1 K/mm3 (0.0-0.1) 03/26/21 20:03 Seg Neutrophils % 77.7 % (40.0-70.0) H 03/26/21 20:03 Seg Neutrophils # 6.0 K/mm3 (1.8-7.7) 03/26/21 20:03 VBG pH 7.293 (7.320-7.420) L 03/26/21 20:03 Sodium 140 mmol/L (137-145) 03/26/21 20:03 Potassium 5.9 mmol/L (3.6-5.0) H 03/26/21 20:03 Chloride 102.3 mmol/L (98-107) 03/26/21 20:03 Carbon Dioxide 14 mmol/L (22-30) L 03/26/21 20:03 Anion Gap 30 mmol/L 03/26/21 20:03 BUN 100 mg/dL (7-17) H 03/26/21 20:03 Creatinine 18.6 mg/dL (0.6-1.2) H 03/26/21 20:03 Estimated GFR 2 ml/min 03/26/21 20:03 BUN/Creatinine Ratio 5 % 03/26/21 20:03 Glucose 200 mg/dL (65-100) H 03/26/21 20:03 Calcium 6.7 mg/dL (8.4-10.2) L 03/26/21 20:03 - Imaging and Cardiology Chest x-ray: report reviewed Assessment and Plan VTE prophylaxis?: Chemical Plan of care discussed with patient/family: Yes - Patient Problems (1) Acute metabolic encephalopathy Current Visit: Yes Status: Acute Plan to address problem: Admit the patient to the medical telemetry. Metabolic encephalopathy most likely secondary to end-stage renal disease and uremia. Will consult nephrology for emergency dialysis. Recheck BMP in the morning (2) Hyperkalemia Current Visit: Yes Status: Acute Plan to address problem: Patient get insulin 6 units IV x1 dose, D50. Calcium gluconate 1 g IV x1 dose and sodium bicarb and Kayexalate. We consulted nephrology for dialysis. Recheck BMP in the morning (3) Pulmonary edema Current Visit: Yes Status: Acute Plan to address problem: Fluid restriction. Maintain input output. Daily weight. Will consult nephrology for dialysis (4) ESRD needing dialysis Current Visit: Yes Status: Chronic Plan to address problem: Patient missed dialysis. We consulted nephrology for dialysis as soon as possible. Recheck BMP in the morning (5) Symptomatic anemia Current Visit: No Status: Acute Plan to address problem: We will monitor the hemoglobin closely. If needed will give transfusion. Nephrology consult (6) Blind Current Visit: No Status: Chronic Qualifiers: Right eye visual impairment category: right - unspecified blindness Left eye visual impairment category: left - unspecified impairment Qualified Code(s): H54.40 - Blindness, one eye, unspecified eye Plan to address problem: Patient is blind. We will monitor the patient closely (7) Diabetes Current Visit: No Status: Chronic Qualifiers: Diabetes mellitus type: type 2 Diabetes mellitus complication status: with circulatory complication Diabetes mellitus complication detail: with other circulatory complications Plan to address problem: 1800 kcal ADA diet. Humalog sliding scale moderate dose coverage with Accu-Chek before meals and at bedtime. Diabetic education (8) DVT prophylaxis Current Visit: No Status: Acute Plan to address problem: Heparin 5000 units subcu every 12 hours for DVT prophylaxis. Pepcid 20 mg p.o. twice daily for GI prophylaxis. Patient is a full code
[2021-03-27 05:26] LABS: Basophils # (Auto) 0.1 K/mm3 (0.0-0.1); Basophils % (Auto) 0.6 % (0.0-1.8); Eosinophils # (Auto) 0.1 K/mm3 (0.0-0.4); Eosinophils % (Auto) 1.1 % (0.0-4.3); Hemoglobin 8.3 gm/dl (10.1-14.3); Lymphocytes # (Auto) 1.1 K/mm3 (1.2-5.4); Lymphocytes % (Auto) 12.6 % (13.4-35.0); Mean Corpuscular HGB Conc 32 % (30-34); Mean Corpuscular Volume 93 fl (79-97); Monocytes # (Auto) 0.7 K/mm3 (0.0-0.8); Monocytes % (Auto) 7.5 % (0.0-7.3); Platelet Count 161 K/mm3 (140-440); Red Blood Count 2.81 M/mm3 (3.65-5.03); Red Cell Distribution Width 14.3 % (13.2-15.2)
[2021-03-27 05:47] LABS: Calcium 7.3 mg/dL (8.4-10.2)
[2021-03-27] MEDS ORDERED: CALCIUM GLUCONATE 1,000 MG in SODIUM CHLORIDE 0.9% 100 ML IV ONE (07:58)
[2021-03-27] MEDS ORDERED: carvediloL 12.5 MG TAB PO SCH (08:00)
[2021-03-27] MEDS: IPRATROPIUM/ALBUTEROL SULFATE 3 ML AMPUL.NEB IH SCH ×2 (08:10→14:55)
[2021-03-27] MEDS: INSULIN LISPRO 100 UNIT/ML SUB-Q SCH ×3 (08:16→17:28)
[2021-03-27] MEDS: SEVELAMER CARBONATE 800 MG TAB PO SCH ×3 (08:18→17:29)
--- NOTE | 2021-03-27 08:51 | Electrocardiograph Report ---
[facility] Test Date: 2021-03-26 Test Time: 22:01:28 Pat Name: MIRTHA ORTA Department: Room: [place] [address] Gender: F Blower Mechanic: RAFAL : 1960 Requested By: TAMRA GUNDERSON Order Number: [id number] Reading MD: Edgar Solano Measurements Intervals Gibson Rate: 79 P: 82 MS: 222 QRS: 114 QRSD: 89 T: 17 QT: 397 QTc: 454 Interpretive Statements Sinus rhythm Prolonged MS interval nonspecific st-t Compared to ECG 02/19/2021 07:25:28 First degree AV block now present Electronically Signed On 03-27-2021 8:50:38 EST by Edgar Solano
[2021-03-27] MEDS ORDERED: HEPARIN 5,000 UNIT/1 ML VIAL SUB-Q SCH ×2 (09:00→10:00)
[2021-03-27] MEDS ORDERED: SODIUM CHLORIDE 0.9% 100 ML IV PRN (09:00)
[2021-03-27] MEDS ORDERED: DEXTROSE 50% IN WATER (25GM) 50 ML SYRINGE IV SCH (09:00)
[2021-03-27] MEDS ORDERED: INSULIN REGULAR, HUMAN 100 UNITS/1 ML IV SCH (09:00)
[2021-03-27] MEDS ORDERED: EPOETIN ALFA-EPBX 10,000 UNIT/1 ML VIAL IV PRN (09:00)
[2021-03-27] MEDS ORDERED: CALC GLUCONATE 1GM/NS 100 ML 1 GM/100 ML BAG IV ONE (09:00)
[2021-03-27] MEDS: SODIUM BICARBONATE 650 MG TAB PO SCH ×2 (09:22→14:55)
[2021-03-27] MEDS ORDERED: FAMOTIDINE 20 MG TAB PO SCH (10:00)
[2021-03-27] MEDS ORDERED: CALCITRIOL 0.5 MCG CAP PO SCH (10:00)
[2021-03-27] MEDS ORDERED: amLODIPine 10 MG TAB PO SCH (10:00)
--- NOTE | 2021-03-27 12:51 | Discharge Summary ---
Providers - Providers Date of Admission: 03/26/21 22:37 Date of discharge: 03/27/21 Attending physician: ANGEL JOHANSEN MD 03/26/21 22:10 Consult to Physician [CONS] Stat Comment: Consulting Provider: GIN HARMON Physician Instructions: Reason For Exam: esrd, uremia 03/26/21 22:37 Consult to Dietitian/Nutrition [CONS] Routine Physician Instructions: Reason For Exam: Reason for Consult: Diet education Primary care physician: APARTMENT LEASING CONSULTANT Hospitalization Reason for admission: Hyperkalemia; volume overload Condition: Stable Pertinent studies: Reviewed. Procedures: None. Hospital course: The patient is a 56-year-old female past medical history of ESRD on hemodialysis (MWF), insulin-dependent type 2 diabetes mellitus, hypertension, blindness, and medication noncompliance who presents for lethargy and shortness of breath. The patient was discharged from [facility] 13 days ago for presentation of shortness of breath secondary to COVID-19 pneumonia and volume overload in the setting of multiple missed hemodialysis sessions. The patient's daughter was concerned about the patient becoming more confused and difficulty with her breathing as well as fecal incontinence. The patient admits to last going to almost a week a nd half ago. The reason the patient states she does not go to hemodialysis is due to lack of transportation and "it making her feel funny". On presentation the patient was found to have a creatinine of 18.6, bicarbonate 14, potassium 5.9. The patient was medically treated for the hyperkalemia. Nephrology was consulted for emergent hemodialysis. Case management and social work have spoken to the patient and her family at length about the importance of being compliant with hemodialysis. The parties all expressed understanding. After hemodialysis, the patient will be medically cleared for discharge. The patient will be discharged with loperamide to provide symptomatic relief of her diarrhea. The patient admits to having fecal incontinence due to being unable to reach to the bathroom in time and not due to a lack of sensation. The patient denies any antibiotics outside from her previous discharge, changes in dietary habits, sick contacts, or other infectious etiology for her diarrhea. The patient will be medically cleared for discharge after hemodialysis. Disposition: HOME / SELF CARE / HOMELESS Final Discharge Diagnosis (Prints w/discharge instructions): Volume overload, ESRD on hemodialysis, hyperkalemia, metabolic acidosis, hypocalcemia, anemia of chronic disease, noncompliance Time spent for discharge: 45 min Core Measure Documentation - Palliative Care Palliative Care/ Comfort Measures: Not Applicable - Core Measures Any of the following diagnoses?: none Exam - Constitutional Vitals: Temp Pulse Resp BP Pulse Ox 99.1 F 88 13 113/72 99 03/26/21 20:20 03/27/21 06:15 03/27/21 06:15 03/27/21 06:15 03/26/21 20:20 General appearance: Present: no acute distress, well-nourished - EENT Eyes: Present: PERRL (Patient is legally blind) ENT: hearing intact, clear oral mucosa, edentulous - Neck Neck: Present: supple, normal ROM - Respiratory Respiratory effort: normal Respiratory: bilateral: CTA - Cardiovascular Rhythm: regular Heart Sounds: Present: S1 & S2 - Extremities Extremities: no ischemia, pulses intact, pulses symmetrical, No edema, normal temperature, normal color Peripheral Pulses: within normal limits - Abdominal General gastrointestinal: Present: soft, non-tender, non-distended, normal bowel sounds Female genitourinary: Present: deferred - Rectal Rectal Exam: deferred - Integumentary Integumentary: Present: clear, warm, dry - Musculoskeletal Musculoskeletal: strength equal bilaterally - Psychiatric Psychiatric: appropriate mood/affect, cooperative - Neurologic Neurologic: CNII-XII intact, moves all extremities - Allied Health Allied health notes reviewed: nursing Plan Activity: no restrictions Diet: renal Additional Instructions: The patient is a 56-year-old female past medical history of ESRD on hemodialysis (MWF), insulin-dependent type 2 diabetes melli carlos manuel, hypertension, blindness, and medication noncompliance who presents for lethargy and shortness of breath. The patient was discharged from [facility] 13 days ago for presentation of shortness of breath secondary to COVID-19 pneumonia and volume overload in the setting of multiple missed hemodialysis sessions. The patient's daughter was concerned about the patient becoming more confused and difficulty with her breathing as well as fecal incontinence. The patient admits to last going to almost a week and half ago. The reason the patient states she does not go to hemodialysis is due to lack of transportation and "it making her feel funny". On presentation the patient was found to have a creatinine of 18.6, bicarbonate 14, potassium 5.9. The patient was medically treated for the hyperkalemia. Nephrology was consulted for emergent hemodialysis. Case management and social work have spoken to the patient and her family at length about the importance of being compliant with hemodialysis. The parties all expressed understanding. After hemodialysis, the patient will be medically cleared for discharge. The patient will be discharged with loperamide to provide symptomatic relief of her diarrhea. The patient admits to having fecal incontinence due to being unable to reach to the bathroom in time and not due to a lack of sensation. The patient denies any antibiotics outside from her previous discharge, changes in dietary habits, sick contacts, or other infectious etiology for her diarrhea. The patient will be medically cleared for discharge after hemodialysis. Care Plan Goals: Patient is medically cleared for discharge. Assessment: The patient is a 56-year-old female past medical history of ESRD on hemodialysis (MWF), insulin-dependent type 2 diabetes mellitus, hypertension, blindness, and medication noncompliance who presents for lethargy and shortness of breath. The patient was discharged from [facility] 13 days ago for presentation of shortness of breath secondary to COVID-19 pneumonia and volume overload in the setting of multiple missed hemodialysis sessions. The patient's daughter was concerned about the patient becoming more confused and difficulty with her breathing as well as fecal incontinence. The patient admits to last going to almost a week and half ago. The reason the patient states she does not go to hemodialysis is due to lack of transportation and "it making her feel funny". On presentation the patient was found to have a creatinine of 18.6, bicarbonate 14, potassium 5.9. The patient was medically treated for the hyperkalemia. Nephrology was consulted for emergent hemodialysis. Case management and social work have spoken to the patient and her family at length about the importance of being compliant with hemodialysis. The parties all expressed understanding. After hemodialysis, the patient will be medically cleared for discharge. The patient will be discharged with loperamide to provide symptomatic relief of her diarrhea. The patient admits to having fecal incontinence due to being unable to reach to the bathroom in time and not due to a lack of sensation. The patient denies any antibiotics outside from her previous discharge, changes in dietary habits, sick contacts, or other infectious etiology for her diarrhea. The patient will be medically cleared for discharge after hemodialysis. Follow up with: PRIMARY MD JOSE [Primary Care Provider] - 3-5 Days Prescriptions: Loperamide [Imodium] 2 mg PO Q6H PRN #30 capsule PRN Reason: Diarrhea
[2021-03-27] MEDS ORDERED: LOPERAMIDE 2 MG CAP PO SCH (13:00)
--- NOTE | 2021-03-27 13:18 | Consultation ---
History of Present Illness - Reason for Consult Consult date: 03/27/21 end stage renal disease - History of Present Illness This is a 60 year-old woman with ESRD who presents with missed HD, hy perkalemia, acidosis Patient was supposed to go to [facility] for outpatient HD, but per patient "there is no chairtime". Unclear why she has not been going to her dialysis center. Last HD was 2 weeks ago at [facility]. Patient was brought to ED by family for lethargy, shortness of breath. Patient is awake and alert but does not provide coherent history. During most recent admission this hospital earlier this month, patient was diagnosed with COVID-19 infection, community-acquired pneumonia. She required oxygen due to hypoxia at that time. Of note patient was admitted 4 times to this hospital between February 02 and March 09. Past History Past Medical History: diabetes, ESRD, hypertension, renal failure Past Surgical History: Other (Toe amputation) Medications and Allergies Allergies Allergy/AdvReac Type Severity Reaction Status Date / Time ibuprofen AdvReac Unknown Verified 03/10/21 14:08 Home Medications Medication Instructions Recorded Confirmed Last Taken Type Atorvastatin [Lipitor] 40 mg PO QHS 02/03/21 03/12/21 02/17/21 21:00 History Sodium Bicarbonate 1,300 mg PO TID 30 Days #180 tablet 02/03/21 03/12/21 Unknown Rx glipiZIDE [Glucotrol] 10 mg PO QDAY 02/03/21 03/12/21 02/17/21 18:00 History amLODIPine 10 mg PO DAILY #30 tablet 02/26/21 03/12/21 Unknown Rx carvediloL [Coreg] 12.5 mg PO BID #60 tablet 02/26/21 03/12/21 Unknown Rx calcitrioL [Rocaltrol] 0.5 mcg PO QDAY 30 Days #30 capsule 03/07/21 03/12/21 Unknown Rx Sevelamer Carbonate [Renvela] 800 mg PO AC #90 tablet 03/13/21 Unknown Rx Loperamide [Imodium] 2 mg PO Q6H PRN #30 capsule 03/27/21 Unknown Rx Active Meds: Active Medications Acetaminophen (Acetaminophen 325 Mg Tab) 650 mg PO Q4H PRN PRN Reason: Pain MILD(1-3)/Fever >100.5/[place] Albuterol (Albuterol 2.5 Mg/3 Ml Nebu) 2.5 mg IH Q3HRT PRN PRN Reason: Shortness Of Breath Albuterol/Ipratropium (Ipratropium/Albuterol Sulfate 3 Ml Ampul.Neb) 1 ampul IH Q6HRT [facility] Last Admin: 03/27/21 08:10 Dose: Not Given Amlodipine Besylate (Amlodipine 10 Mg Tab) 10 mg PO DAILY [facility] Last Admin: 03/27/21 11:08 Dose: 10 mg Atorvastatin Calcium (Atorvastatin 40 Mg Tab) 40 mg PO QHS [facility] Calcitriol (Calcitriol 0.5 Mcg Cap) 0.5 mcg PO QDAY [facility] Last Admin: 03/27/21 11:09 Dose: 0.5 mcg Carvedilol (Carvedilol 12.5 Mg Tab) 12.5 mg PO BID@0800,1700 [facility] Last Admin: 03/27/21 08:00 Dose: 12.5 mg Dextrose (Dextrose 50% In Water (25gm) 50 Ml Syringe) 0 ml IV Q30MIN PRN; Protocol PRN Reason: Hypoglycemia Epoetin Esvin-epbx (Epoetin Esvin-Epbx 10,000 Unit/1 Ml Vial) 10,000 unit IV FELI PRN PRN Reason: hemodialysis Famotidine (Famotidine 20 Mg Tab) 20 mg PO QAM [facility] Last Admin: 03/27/21 11:08 Dose: 20 mg Heparin Sodium (Porcine) (Heparin 5,000 Unit/1 Ml Vial) 5,000 unit SUB-Q Q8H [facility] Last Admin: 03/27/21 09:22 Dose: 5,000 unit Hydromorphone HCl (Hydromorphone 1 Mg/1 Ml Inj) 0.5 mg IV Q3H PRN PRN Reason: Pain , Severe (7-10) Sodium Chloride (Nacl 0.9%) 100 mls @ 999 mls/hr IV FELI PRN PRN Reason: Hypotension Insulin Human Lispro (Insulin Lispro 100 Unit/Ml) 0 unit SUB-Q ACHS [facility]; Protocol Last Admin: 03/27/21 11:45 Dose: Not Given Loperamide HCl (Loperamide 2 Mg Cap) 2 mg PO Q6H [facility] Morphine Sulfate (Morphine 2 Mg/1 Ml Inj) 2 mg IV Q4H PRN PRN Reason: Pain, Moderate (4-6) Ondansetron HCl (Ondansetron 4 Mg/2 Ml Inj) 4 mg IV Q8H PRN PRN Reason: Nausea And Vomiting Sevelamer Carbonate (Sevelamer Carbonate 800 Mg Tab) 800 mg PO AC [facility] Last Admin: 03/27/21 11:46 Dose: Not Given Sodium Bicarbonate (Sodium Bicarbonate 650 Mg Tab) 1,300 mg PO TID [facility] Last Admin: 03/27/21 09:22 Dose: 1,300 mg Sodium Chloride (Sodium Chloride 0.9% 10 Ml Flush Syringe) 10 ml IV BID [facility] Last Admin: 03/27/21 11:09 Dose: Not Given Sodium Chloride (Sodium Chloride 0.9% 10 Ml Flush Syringe) 10 ml IV PRN PRN PRN Reason: LINE FLUSH Review of Systems ROS unobtainable: due to mental status Exam - Vital Signs Vital signs: Vital Signs Temp Pulse Resp BP Pulse Ox 98.2 F 81 19 116/67 100 03/26/21 19:42 03/26/21 19:42 03/26/21 19:42 03/26/21 19:42 03/26/21 19:42 - Physical Exam Narrative exam: Constitutional: no acute distress, confused Head: NC/AT Neck: supple Lungs: decreased lung sounds CV: RRR, no M/R/G Abdomen: soft, non-tender, bowel sounds present Back: nontender Extremities: 2+ edema, pulses WNL Skin: intact Neuro: no focal deficits, lethargic, not oriented Results - Lab Results 03/27/21 05:11 03/27/21 05:11 Most recent lab results Calcium 7.3 mg/dL (8.4-10.2) L 03/27/21 05:11 Assessment and Plan This is a 60 year old woman who presents with missed HD and resultant pulmonary edema, hyperkalemia, acidosis # ESRD: HD today for electrolyte/volume disturbances - daily labs - renally dose meds - avoid nephrotoxins - renal diet - verbal consent obtained for HD - unclear social situation, patient appears to have outpatient HD established in [place] # Anemia: last hemoglobin below goal, ESAs with HD # HTN: UF as tolerated. BP stable # Secondary Hyperparathyroidism: continue home binders as needed, vitamin D analogs prn. Note low calcium, use 3meq Ca bath
[2021-03-27 16:27] VITALS: BP 143/76
== END 2021-03-27 18:06 | disposition home or self-care (01) ==
LOC: ED 19:08 → 4A 22:37 → INTOOBSV 22:37
PROVIDERS: ADMIT Hospitalist; ATTEND Student in an Organized Health Care Education/Training Program
DX: G93.41 Metabolic encephalopathy (principal); E87.70 Fluid overload, unspecified; E87.5 Hyperkalemia; N17.9 Acute kidney failure, unspecified; I12.0 Hypertensive chronic kidney disease with stage 5 chronic kidney disease or end stage renal disease; N18.6 End stage renal disease; E11.22 Type 2 diabetes mellitus with diabetic chronic kidney disease; D63.1 Anemia in chronic kidney disease; N25.81 Secondary hyperparathyroidism of renal origin; J81.1 Chronic pulmonary edema; H54.40 Blindness, one eye, unspecified eye; Z99.2 Dependence on renal dialysis; Z79.899 Other long term (current) drug therapy; Z98.890 Other specified postprocedural states; Z91.19 Patient's noncompliance with other medical treatment and regimen
CPT/HCPCS: 36415; 71045; 80048; 82140; 82805; 82962; 85025; 93005; 93010; 96365; 96366; 96372; 96375; 96376; 99285; G0257; G0378; J0610; J0885; J1644; J3490; Q9967; J1815

== ENCOUNTER 2021-03-30 11:39 | Emergency (ER) | payer MEDICARE ==
--- NOTE | 2021-03-30 11:50 | Emergency Department Report ---
ED General Adult HPI - General Chief complaint: Altered Mental Status Stated complaint: ALTERED/MISSED DIALYSIS PUI?: No Time Seen by Provider: 03/30/21 11:41 Source: patient, family, EMS, old records reviewed Mode of arrival: Stretcher Limitations: Altered Mental Status - History of Present Illness Initial comments: Chief complaint: Low blood sugar, altered mental status HPI: This is a 60-year-old female with history of end-stage renal disease on hemodialysis, diabetes mellitus, hypertension, dyslipidemia, blindness who pr esents with altered mental status. Patient's blood sugar was 290 last night. Family gave patient extra insulin. She was difficult to arouse this morning. Blood sugar [address] Light Inspector gave patient glucose. Patient is now euglycemic. Patient last had dialysis when admitted to the hospital recently. She told the charter bus driver that she does not want dialysis care. Her father of end-stage renal disease. She is concerned that she is going to as a result of dialysis care. According to electronic record, patient was discharged 3 days ago on March 27. She received hemodialysis March 27. -: This morning Severity scale (0 -10): 0 Consistency: now resolved Improves with: other (Glucose administered by EMS) Associated Symptoms: denies other symptoms Treatments Prior to Arrival: other (Glucose administered by EMS) - Related Data Home Medications Medication Instructions Recorded Confirmed Last Taken Atorvastatin [Lipitor] 40 mg PO QHS 02/03/21 03/12/21 02/17/21 21:00 glipiZIDE [Glucotrol] 10 mg PO QDAY 02/03/21 03/12/21 02/17/21 18:00 Previous Rx's Medication Instructions Recorded Last Taken Type Sodium Bicarbonate 1,300 mg PO TID 30 Days #180 tablet 02/03/21 Unknown Rx amLODIPine 10 mg PO DAILY #30 tablet 02/26/21 Unknown Rx carvediloL [Coreg] 12.5 mg PO BID #60 tablet 02/26/21 Unknown Rx calcitrioL [Rocaltrol] 0.5 mcg PO QDAY 30 Days #30 capsule 03/07/21 Unknown Rx Sevelamer Carbonate [Renvela] 800 mg PO AC #90 tablet 03/13/21 Unknown Rx Loperamide [Imodium] 2 mg PO Q6H PRN #30 capsule 03/27/21 Unknown Rx Allergies Allergy/AdvReac Type Severity Reaction Status Date / Time ibuprofen AdvReac Unknown Verified 03/10/21 14:08 ED Review of Systems ROS: Stated complaint: ALTERED/MISSED DIALYSIS Other details as noted in HPI Comment: All other systems reviewed and negative Constitutional: denies: chills, fever, malaise Respiratory: denies: cough, shortness of breath Cardiovascular: denies: chest pain Gastrointestinal: denies: abdominal pain, nausea, vomiting ED Past Medical Hx - Past Medical History Previous Medical History?: Yes Hx Hypertension: Yes Hx Congestive Heart Failure: No Hx Diabetes: Yes Hx Renal Disease: Yes (On dialysis) Hx Asthma: No Hx COPD: No - Surgical History Past Surgical History?: Yes Additional Surgical History: Toe amputation - Social History Smoking Status: Never Smoker - Medications Home Medications: Home Medications Medication Instructions Recorded Confirmed Last Taken Type Atorvastatin [Lipitor] 40 mg PO QHS 02/03/21 03/12/21 02/17/21 21:00 History Sodium Bicarbonate 1,300 mg PO TID 30 Days #180 tablet 02/03/21 03/12/21 Unknown Rx glipiZIDE [Glucotrol] 10 mg PO QDAY 02/03/21 03/12/21 02/17/21 18:00 History amLODIPine 10 mg PO DAILY #30 tablet 02/26/21 03/12/21 Unknown Rx carvediloL [Coreg] 12.5 mg PO BID #60 tablet 02/26/21 03/12/21 Unknown Rx calcitrioL [Rocaltrol] 0.5 mcg PO QDAY 30 Days #30 capsule 03/07/21 03/12/21 Unknown Rx Sevelamer Carbonate [Renvela] 800 mg PO AC #90 tablet 03/13/21 Unknown Rx Loperamide [Imodium] 2 mg PO Q6H PRN #30 capsule 03/27/21 Unknown Rx ED Physical Exam - General Limitations: No Limitations General appearance: alert, in no apparent distress - Head Head exam: Present: atraumatic, normocephalic - Eye Eye exam: Present: normal appearance - ENT ENT exam: Present: mucous membranes moist - Neck Neck exam: Present: normal inspection, full ROM - Respiratory Respiratory exam: Present: normal lung sounds bilaterally. Absent: respiratory distress, wheezes, rales, rhonchi - Cardiovascular Cardiovascular Exam: Present: regular rate, normal rhythm, normal heart sounds. Absent: systolic murmur, diastolic murmur, rubs, gallop - GI/Abdominal GI/Abdominal exam: Present: soft, normal bowel sounds. Absent: distended, tenderness, guarding, rebound - Extremities Exam Extremities exam: Present: normal inspection - Back Exam Back exam: Present: normal inspection - Neurological Exam Neurological exam: Present: alert, oriented X3 - Psychiatric Psychiatric exam: Present: normal mood, flat affect - Skin Skin exam: Present: warm, dry, intact, normal color. Absent: rash ED Course Vital Signs 03/30/21 03/30/21 11:44 12:25 Temperature 97.4 F L 97.4 F L Pulse Rate 71 78 Respiratory 16 16 Rate Blood Pressure 141/74 Blood Pressure 137/71 [Right] O2 Sat by Pulse 100 100 Oximetry ED Medical Decision Making - Lab Data Result diagrams: 03/30/21 12:03 03/30/21 12:03 - Medical Decision Making 1. Hypoglycemia: Appropriately treated by EMS. Patient is now alert and oriented. 2. End-stage renal disease on hemodialysis: I discussed case with Dr. Snider mental health director wholesale agronomist. He agrees that patient does not require emergent dialysis at this time. I had extensive conversation with her son Mr. Jaime Perez. He had the understanding that she will receive dialysis 3 times a week through the emergency department. Dr. Snider recommended having the patient to return to the emergency department tomorrow for lab check. With further explanation from Mr. Perez, he wanted patient transported to the emergency department for hemodialysis not just hypoglycemia. Chemistry reveals no significant acidosis or hyperkalemia. BUN is 25 creatinine 10.1. Metabolic parameters are markedly improved from 3 days ago. CBC unremarkable Critical care attestation.: If time is entered above; I have spent that time in minutes in the direct care of this critically ill patient, excluding procedure time. ED Disposition Clinical Impression: Hypoglycemia due to insulin, End stage renal disease Disposition: HOME / SELF CARE / HOMELESS Is pt being admited?: No Does the pt Need Aspirin: No Condition: Stable Additional Instructions: Please return tomorrow to have labs checked. Dr. Cisneros spoke with the mental health director wholesale agronomist.
[2021-03-30 12:42] LABS: Basophils % (Auto) 0.7 % (0.0-1.8); Eosinophils # (Auto) 0.1 K/mm3 (0.0-0.4); Eosinophils % (Auto) 1.4 % (0.0-4.3); Hematocrit 28.2 % (30.3-42.9); Hemoglobin 9.1 gm/dl (10.1-14.3); Lymphocytes # (Auto) 0.9 K/mm3 (1.2-5.4); Lymphocytes % (Auto) 14.5 % (13.4-35.0); Mean Corpuscular HGB Conc 32 % (30-34); Mean Corpuscular Volume 92 fl (79-97); Monocytes # (Auto) 0.6 K/mm3 (0.0-0.8); Monocytes % (Auto) 8.9 % (0.0-7.3); Platelet Count 221 K/mm3 (140-440); Red Blood Count 3.05 M/mm3 (3.65-5.03); Red Cell Distribution Width 14.4 % (13.2-15.2)
[2021-03-30 15:58] VITALS: BP 120/75
== END 2021-03-30 15:00 | disposition home or self-care (01) ==
LOC: ED 11:39
DX: E11.649 Type 2 diabetes mellitus with hypoglycemia without coma (principal); N18.6 End stage renal disease; I10 Essential (primary) hypertension; Z89.429 Acquired absence of other toe(s), unspecified side; Z88.8 Allergy status to other drugs, medicaments and biological substances
CPT/HCPCS: 36415; 80048; 82962; 85025; 99284

== ENCOUNTER 2021-04-04 09:05 | Inpatient (IN) | payer MEDICARE ==
--- NOTE | 2021-04-04 09:13 | Emergency Department Report ---
ED General Adult HPI - General Chief complaint: Dyspnea/Respdistress Stated complaint: missed dialysis Time Seen by Provider: 04/04/21 09:06 Source: patient, EMS Mode of arrival: Stretcher Limitations: No Limitations - History of Present Illness Initial comments: Patient presented secondary to the fact that she has missed dialysis. Patient states that she was only diagnosed with renal disease in March. She was started on dialysis then. Apparently no chair has been arranged for her. She states that she was never told her chair was arranged for her despite the last nephrology note that the patient was going to [place]. Regardless, she has not been dialyzed since March 20 according to her. She came in today because she was having trouble breathing and felt short of breath. She has no chest pain. There is no vomiting. She has no hematemesis or coffee-ground emesis that she has noted. She does however state that she is visually impaired and might not be aware of that. She has no abdominal pain. Severity scale (0 -10): 0 - Related Data Home Medications Medication Instructions Recorded Confirmed Last Taken Atorvastatin [Lipitor] 40 mg PO QHS 02/03/21 04/04/21 04/03/21 glipiZIDE [Glucotrol] 10 mg PO QDAY 02/03/21 04/04/21 04/03/21 Previous Rx's Medication Instructions Recorded Last Taken Type Sodium Bicarbonate 1,300 mg PO TID 30 Days #180 tablet 02/03/21 04/03/21 Rx amLODIPine 10 mg PO DAILY #30 tablet 02/26/21 04/03/21 Rx carvediloL [Coreg] 12.5 mg PO BID #60 tablet 02/26/21 04/03/21 Rx calcitrioL [Rocaltrol] 0.5 mcg PO QDAY 30 Days #30 capsule 03/07/21 04/03/21 Rx Sevelamer Carbonate [Renvela] 800 mg PO AC #90 tablet 03/13/21 04/03/21 Rx Loperamide [Imodium] 2 mg PO Q6H PRN #30 capsule 03/27/21 04/03/21 Rx Allergies Allergy/AdvReac Type Severity Reaction Status Date / Time ibuprofen AdvReac Unknown Verified 03/10/21 14:08 ED Review of Systems ROS: Stated complaint: missed dialysis Other details as noted in HPI Comment: All other systems reviewed and negative Constitutional: denies: fever ENT: denies: throat pain Respiratory: denies: cough Cardiovascular: denies: chest pain Gastrointestinal: denies: abdominal pain Musculoskeletal: denies: back pain Skin: denies: rash Neurological: denies: headache Hematological/Lymphatic: denies: easy bruising ED Past Medical Hx - Past Medical History Hx Hypertension: Yes Hx Congestive Heart Failure: No Hx Diabetes: Yes Hx Renal Disease: Yes (On dialysis) Hx Asthma: No Hx COPD: No - Surgical History Additional Surgical History: Toe amputation - Family History Family history: hypertension - Social History Smoking Status: Never Smoker - Medications Home Medications: Home Medications Medication Instructions Recorded Confirmed Last Taken Type Atorvastatin [Lipitor] 40 mg PO QHS 02/03/21 04/04/21 04/03/21 History Sodium Bicarbonate 1,300 mg PO TID 30 Days #180 tablet 02/03/21 04/04/21 04/03/21 Rx glipiZIDE [Glucotrol] 10 mg PO QDAY 02/03/21 04/04/21 04/03/21 History amLODIPine 10 mg PO DAILY #30 tablet 02/26/21 04/04/21 04/03/21 Rx carvediloL [Coreg] 12.5 mg PO BID #60 tablet 02/26/21 04/04/21 04/03/21 Rx calcitrioL [Rocaltrol] 0.5 mcg PO QDAY 30 Days #30 capsule 03/07/21 04/04/21 04/03/21 Rx Sevelamer Carbonate [Renvela] 800 mg PO AC #90 tablet 03/13/21 04/04/21 04/03/21 Rx Loperamide [Imodium] 2 mg PO Q6H PRN #30 capsule 03/27/21 04/04/21 04/03/21 Rx ED Physical Exam - General Limitations: No Limitations, Other (Pulse ox noted and normal) General appearance: alert, in distress (Mild) - Head Head exam: Present: atraumatic, normocephalic - Eye Eye exam: Absent: scleral icterus - ENT ENT exam: Present: normal orophraynx, normal external ear exam - Neck Neck exam: Present: normal inspection. Absent: meningismus - Respiratory Respiratory exam: Present: respiratory distress (Mild), rales (Bilateral) - Cardiovascular Cardiovascular Exam: Present: regular rate, normal rhythm - GI/Abdominal GI/Abdominal exam: Present: soft. Absent: distended - Extremities Exam Extremities exam: Present: normal capillary refill. Absent: calf tenderness - Back Exam Back exam: Absent: CVA tenderness (R), CVA tenderness (L) - Neurological Exam Neurological exam: Present: alert, oriented X3, CN II-XII intact, reflexes normal - Psychiatric Psychiatric exam: Present: normal affect, normal mood - Skin Skin exam: Present: warm, dry ED Course Vital Signs 04/04/21 04/04/21 04/04/21 09:05 09:23 09:30 Temperature 97.8 F Pulse Rate 78 80 Respiratory 17 14 Rate Blood Pressure 144/69 Blood Pressure 134/76 [Left] O2 Sat by Pulse 96 99 99 Oximetry 04/04/21 04/04/21 04/04/21 09:34 09:45 10:01 Temperature Pulse Rate 77 82 81 Respiratory 19 18 14 Rate Blood Pressure 144/69 135/64 Blood Pressure 144/69 [Left] O2 Sat by Pulse 96 98 98 Oximetry 04/04/21 10:15 Temperature Pulse Rate 79 Respiratory 15 Rate Blood Pressure 135/64 Blood Pressure [Left] O2 Sat by Pulse 97 Oximetry - Reevaluation(s) Reevaluation #1: 04/04/21 09:13 EMS was met upon arrival. IV and labs were ordered. X-ray was ordered. Old records reviewed. Reevaluation #2: 04/04/21 10:15 Labs are noted. Renal has been paged. ED Medical Decision Making - Lab Data Result diagrams: 04/04/21 09:25 04/04/21 09:25 Rhythm strip: Normal sinus rhythm without ectopy. Monitor observe 10 seconds. - EKG Data -: EKG Interpreted by Me - EKG Data 04/04/21 10:16 EKG shows normal sinus rhythm at 78. Intervals are normal including a QRS of 94 and a QT corrected of 465. Patient does have some left axis deviation. There is no ST elevation to suggest STEMI. There is poor R wave progression. Patient has no ST depression suggestive of ischemia but there is artifact noted. - Radiology Data Radiology results: report reviewed - Medical Decision Making Patient presents secondary to the fact that she has not been dialyzed in quite some time. She does have evidence of volume overload with an elevated troponin. I believe admission for dialysis would be appropriate. Nephrology and the hospitalist will be notified. Patient does not have symptoms suggestive of coronavirus. She is not actively having chest pain and has no STEMI on EKG. I do not believe the elevated troponin represents a STEMI, but this can also be trended. Critical care attestation.: If time is entered above; I have spent that time in minutes in the direct care of this critically ill patient, excluding procedure time. ED Disposition Clinical Impression: ESRD needing dialysis, Hyperkalemia, Elevated troponin Pulmonary edema Qualifiers: Chronicity: acute Qualified Code(s): J81.0 - Acute pulmonary edema Disposition: 09 ADMITTED INPATIENT Is pt being admited?: Yes Condition: Stable Instructions: Pulmonary Edema (ED) Referrals: PRIMARY CARE, [Primary Care Provider] - 3-5 Days
[2021-04-04 09:48] LABS: Hemoglobin 7.8 gm/dl (10.1-14.3); Mean Corpuscular HGB Conc 30 % (30-34); Mean Corpuscular Volume 93 fl (79-97); Platelet Count 362 K/mm3 (140-440); Red Blood Count 2.81 M/mm3 (3.65-5.03); Red Cell Distribution Width 14.9 % (13.2-15.2)
--- NOTE | 2021-04-04 09:59 | XRay Report ---
CHEST 2 VIEWS INDICATION / CLINICAL INFORMATION: Shortness of breath. COMPARISON: 03/26/2021 FINDINGS: SUPPORT DEVICES: Stable position of right IJ central venous catheter. HEART / MEDIASTINUM: Stable borderline cardiomegaly. LUNGS / PLEURA: Stable pulmonary vascular congestion. ADDITIONAL FINDINGS: No significant additional findings. IMPRESSION: 1. Unchanged findings likely reflect mild CHF compared with 03/26/2021. Signer Name: Denny Munoz MD Signed: 04/04/2021 9:54 AM Workstation Name: [id number]
[2021-04-04 10:01] LABS: Calcium 6.8 mg/dL (8.4-10.2)
[2021-04-04 10:19] LABS: Chol/HDL Ratio 1.78 %
[2021-04-04] MEDS ORDERED: SODIUM CHLORIDE 0.9% 100 ML IV PRN (10:29)
--- NOTE | 2021-04-04 10:38 | Consultation ---
History of Present Illness - Reason for Consult Consult date: 04/04/21 end stage renal disease - History of Present Illness Assessment and Plan This is a 60 year old woman who presents with missed HD and resultant pulmonary edema, hyperkalemia, acidosis # ESRD: HD today for electrolyte/volume disturbances - daily labs - renally dose meds - avoid nephrotoxins - renal diet - verbal consent obtained for HD - unclear social situation, patient appears to have outpatient HD established in [place] but apparently didnt wont to go, will need to have addressed by case management # Anemia: last hemoglobin below goal, ESAs with HD # HTN: UF as tolerated. BP stable # Secondary Hyperparathyroidism: continue home binders as needed, vitamin D analogs prn. Note low calcium, HPI: This is a 60 year-old woman with ESRD who presents with missed HD, hyperkalemia, acidosis Patient was supposed to go to [facility] for outpatient HD, but per patient "there is no chairtime". Unclear why she has not been going to her [facility] center. Last HD was 2 weeks ago at [facility]. Patient was brought to ED by family for lethargy, shortness of breath. Patient is awake and alert but does not provide coherent history. During most recent admission this hospital earlier this month, patient was diagnosed with COVID-19 infection, community-acquired pneumonia. She required oxygen due to hypoxia at that time. Of note patient was admitted 5 times to this hospital between February 02 and March 27. Past History Past Medical History: diabetes, ESRD, hypertension, renal failure Past Surgical History: Other (Toe amputation) Review of Systems ROS unobtainable: due to mental status - Physical Exam Narrative exam: Constitutional: no acute distress, confused Head: NC/AT Neck: supple Lungs: decreased lung sounds CV: RRR, no M/R/G Abdomen: soft, non-tender, bowel sounds present Back: nontender Extremities: 2+ edema, pulses WNL Skin: intact Neuro: no focal deficits, lethargic, not oriented Medications and Allergies Allergies Allergy/AdvReac Type Severity Reaction Status Date / Time ibuprofen AdvReac Unknown Verified 03/10/21 14:08 Home Medications Medication Instructions Recorded Confirmed Last Taken Type Atorvastatin [Lipitor] 40 mg PO QHS 02/03/21 04/04/21 04/03/21 History Sodium Bicarbonate 1,300 mg PO TID 30 Days #180 tablet 02/03/21 04/04/21 02/05/20 Rx glipiZIDE [Glucotrol] 10 mg PO QDAY 02/03/21 04/04/21 04/03/21 History amLODIPine 10 mg PO DAILY #30 tablet 02/26/21 04/04/21 04/03/21 Rx carvediloL [Coreg] 12.5 mg PO BID #60 tablet 02/26/21 04/04/21 04/03/21 Rx calcitrioL [Rocaltrol] 0.5 mcg PO QDAY 30 Days #30 capsule 03/07/21 04/04/21 04/03/21 Rx Sevelamer Carbonate [Renvela] 800 mg PO AC #90 tablet 03/13/21 04/04/21 04/03/21 Rx Loperamide [Imodium] 2 mg PO Q6H PRN #30 capsule 03/27/21 04/04/21 04/03/21 Rx Active Meds: Active Medications Sodium Chloride (Nacl 0.9%) 100 mls @ 999 mls/hr IV FELI PRN PRN Reason: Hypotension Exam - Vital Signs Vital signs: Vital Signs Temp Pulse Resp BP Pulse Ox 97.8 F 78 17 134/76 96 04/04/21 09:05 04/04/21 09:05 04/04/21 09:05 04/04/21 09:05 04/04/21 09:05 Results - Lab Results 04/04/21 09:25 04/04/21 09:25 Most recent lab results Calcium 6.8 mg/dL (8.4-10.2) L 04/04/21 09:25 Magnesium 2.10 mg/dL (1.7-2.3) 04/04/21 09:25
--- NOTE | 2021-04-04 14:45 | Electrocardiograph Report ---
[facility] Test Date: 2021-04-04 Test Time: 09:16:06 Pat Name: MIRTHA ORTA Department: Room: Gender: F [employer]: CECIL : 1960 Requested By: MILAN LAUREN Order Number: [id number] Reading MD: Josh Wall Measurements Intervals [place] Rate: 78 P: 51 NC: 205 QRS: -37 QRSD: 94 T: 19 QT: 409 QTc: 465 Interpretive Statements Sinus rhythm Borderline prolonged NC interval Left axis deviation Consider anterior infarct Compared to ECG 03/26/2021 22:01:28 No significant change Electronically Signed On 04-04-2021 14:44:49 EST by Josh Wall
--- NOTE | 2021-04-04 15:08 | History and Physical Report ---
History of Present Illness Chief complaint: I need to get dialysis History of present illness: 60 YO Female with HTN, DM, Asthma Mild Intermittent, Legally Blind, ESRD noncompliant with initiation of dialysis presents ED for evaluation. Patient reports "I need dialysis". Patient states that she has been unable to receive outpatient dialysis and was last dialyzed on March 20, 2021. Patient states that she was unable to be dialyzed at her outpatient dialysis center due to loss of her dialysis position. Patient states that she had experienced shortness of breath, generalized weakness, decreased exercise tolerance, orthopnea, paroxysmal nocturnal dyspnea, dyspnea on exertion, dyspnea at rest, and 10 pound subjective weight gain over the past 1 week with worsening symptoms over the same timeframe. EMS was notified and upon arrival the patient was found to be in distress and subsequently transported to [facility] for further care and evaluation of the aforementioned symptoms. The patient was seen and evaluated in the emergency department. All lab and imaging studies reviewed. Patient was found to have lab findings and clinical symptoms consistent with CHF decompensation, fluid overload complicated by end-stage renal disease in need of urgent dialysis, metabolic acidosis, hyperkalemia without EKG changes. Patient admitted to medical floor due to increased risk of worsening symptoms. Patient initiated on CHF protocol. Nephrology team consulted in ED for urgent dialysis. Patient denies fever, chills, chest pain, palpitation, adductive cough, skin rash, recent contact, known exposure to COVID-19. All medication listed at time of admission has been reconciled. Advanced care planning conducted in ED. previous admission on 03/26/2021 reviewed. Past History Past Medical History: diabetes, ESRD, hypertension, other (See HPI) Past Surgical History: Other (Dialysis access, toe amputation) Social history: . denies: smoking, alcohol abuse, prescription drug abuse Family history: diabetes, hypertension Medications and Allergies Allergies Allergy/AdvReac Type Severity Reaction Status Date / Time ibuprofen AdvReac Unknown Verified 03/10/21 14:08 Home Medications Medication Instructions Recorded Confirmed Last Taken Type Atorvastatin [Lipitor] 40 mg PO QHS 02/03/21 04/04/21 04/03/21 History Sodium Bicarbonate 1,300 mg PO TID 30 Days #180 tablet 02/03/21 04/04/21 04/03/21 Rx glipiZIDE [Glucotrol] 10 mg PO QDAY 02/03/21 04/04/2104/03/22 History amLODIPine 10 mg PO DAILY #30 tablet 02/26/21 04/04/21 04/03/21 Rx carvediloL [Coreg] 12.5 mg PO BID #60 tablet 02/26/21 04/04/21 04/03/21 Rx calcitrioL [Rocaltrol] 0.5 mcg PO QDAY 30 Days #30 capsule 03/07/21 04/04/21 04/03/21 Rx Sevelamer Carbonate [Renvela] 800 mg PO AC #90 tablet 03/13/21 04/04/21 04/03/21 Rx Loperamide [Imodium] 2 mg PO Q6H PRN #30 capsule 03/27/21 04/04/21 04/03/21 Rx Active Meds: Active Medications Sodium Chloride (Nacl 0.9%) 100 mls @ 999 mls/hr IV FELI PRN PRN Reason: Hypotension Review of Systems Constitutional: weight gain, weakness, no fever, no chills Ears, nose, mouth and throat: no ear pain, no ear discharge, no decreased hearing, no nasal discharge Breasts: no change in shape, no swelling, no mass Cardiovascular: orthopnea, dyspnea on exertion, paroxysmal nocturnal dyspnea, leg edema, decreased exercise tolerance, no chest pain Exam - Constitutional Vitals: Temp Pulse Resp BP Pulse Ox 97.8 F 82 17 141/71 99 04/04/21 14:18 04/04/21 14:15 04/04/21 14:15 04/04/21 14:15 04/04/21 14:15 General appearance: Present: mild distress - EENT Eyes: Present: PERRL ENT: hearing intact, clear oral mucosa - Neck Neck: Present: supple, normal ROM - Respiratory Respiratory effort: normal Respiratory: bilateral: rales - Cardiovascular Rhythm: regular Heart Sounds: Present: S1 & S2. Absent: rub, click - Extremities Extremities: pulses symmetrical Extremity abnormal: edema Peripheral Pulses: within normal limits - Abdominal General gastrointestinal: Present: soft, non-tender, non-distended, normal bowel sounds Female genitourinary: Present: normal - Integumentary Integumentary: Present: clear, warm, dry - Musculoskeletal Musculoskeletal: generalized weakness - Psychiatric Psychiatric: appropriate mood/affect, intact judgment & insight - Neurologic Neurologic: CNII-XII intact, moves all extremities HEART Score - HEART Score Troponin: Troponin T 0.111 ng/mL (0.00-0.029) H* 04/04/21 09:25 Results - Labs CBC & Chem 7: 04/04/21 09:25 04/04/21 09:25 Labs: Abnormal lab results 04/04/21 04/04/21 Range/Units 09:25 09:25 RBC 2.81 L (3.65-5.03) M/mm3 Hgb 7.8 L (10.1-14.3) gm/dl Hct 26.0 L (30.3-42.9) % Sodium 135 L (137-145) mmol/L Potassium 5.4 H D (3.6-5.0) mmol/L Chloride 97.0 L (98-107) mmol/L Carbon Dioxide 21 L (22-30) mmol/L BUN 47 H (7-17) mg/dL Creatinine 14.6 H (0.6-1.2) mg/dL Glucose 129 H (65-100) mg/dL Calcium 6.8 L (8.4-10.2) mg/dL Troponin T 0.111 H* (0.00-0.029) ng/mL NT-Pro-B Natriuret Pep 05238 H (0-900) pg/mL LDL Cholesterol Direct 40 L (50-130) mg/dL Assessment and Plan - Patient Problems (1) CHF (congestive heart failure) Current Visit: Yes Status: Acute Qualifiers: Heart failure type: diastolic Heart failure chronicity: acute Qualified Code(s): I50.31 - Acute diastolic (congestive) heart failure Plan to address problem: Strict I/O, monitor urine output every shift, daily weight, afterload reduction, blood pressure control, supplemental oxygen, pulse oximetry, echocardiogram from 01/2021 reviewed. (2) End stage renal disease Current Visit: Yes Status: Acute Plan to address problem: Nephrology team consulted in ED. Dialysis as per renal team, strict I's/O, avoid nephrotoxic agents. (3) Fluid overload Current Visit: Yes Status: Acute Qualifiers: Hypervolemia type: unspecified Qualified Code(s): E87.70 - Fluid overload, unspecified Plan to address problem: supportive care, monitor fluid balance, urgent dialysis. (4) Hyperkalemia Current Visit: Yes Status: Acute Plan to address problem: Urgent dialysis, no EKG changes. (5) DVT prophylaxis Current Visit: Yes Status: Acute Plan to address problem: SCD to bilateral lower extremities while in bed (6) Advance care planning Current Visit: Yes Status: Acute Plan to address problem: Disease education conducted, care plan discussed, diagnoses discussed, prognosis discussed, patient is full code. Patient knowledges understanding agreement with care plan, +30 minutes. Case management consulted for assistance with arrangement of outpatient dialysis.
[2021-04-04] MEDS ORDERED: oxyCODONE /ACETAMINOPHEN 5-325MG TAB PO PRN (15:11)
[2021-04-04] MEDS ORDERED: ACETAMINOPHEN 325 MG TAB PO PRN (15:11)
[2021-04-04] MEDS ORDERED: HYDROmorphone 1 MG/1 ML INJ IV PRN (15:11)
[2021-04-04] MEDS ORDERED: ALBUTEROL 2.5 MG/3 ML NEBU IH PRN (15:11)
[2021-04-04] MEDS ORDERED: ONDANSETRON 4 MG/2 ML INJ IV PRN (15:11)
[2021-04-04 16:31] LABS: Free T4 (Free Thyroxine) 1.12 ng/dL (0.76-1.46)
[2021-04-04 19:57] VITALS: BP 137/77
--- NOTE | 2021-04-05 10:34 | Event Note ---
Date: 04/05/21 The patient reportedly left AMA at approximately 1900 on 04/04/2021. Patient was not seen by me and never arrived to the floor. AMA discharge per admitting physician.
== END 2021-04-04 19:24 | disposition left against medical advice (07) | DRG 640 ==
LOC: ED 09:05 → 4A 15:11
PROVIDERS: ADMIT Internal Medicine; ATTEND Hospitalist
PROC: 5A1D70Z Performance of Urinary Filtration, Intermittent, Less than 6 Hours Per Day (ICD-10-PCS; principal; 2021-04-04)
DX: E87.5 Hyperkalemia (principal); N18.6 End stage renal disease; I50.31 Acute diastolic (congestive) heart failure; I13.2 Hypertensive heart and chronic kidney disease with heart failure and with stage 5 chronic kidney disease, or end stage renal disease; E87.2 Acidosis; E87.70 Fluid overload, unspecified; Z53.29 Procedure and treatment not carried out because of patient's decision for other reasons; E11.22 Type 2 diabetes mellitus with diabetic chronic kidney disease; Z99.2 Dependence on renal dialysis; H54.8 Legal blindness, as defined in USA; J45.909 Unspecified asthma, uncomplicated; Z91.15 Patient's noncompliance with renal dialysis; Z83.3 Family history of diabetes mellitus; Z82.49 Family history of ischemic heart disease and other diseases of the circulatory system
CPT/HCPCS: 36415; 71046; 80048; 80061; 83735; 83880; 84439; 84443; 84484; 85027; 93005; 93010; G0378

== ENCOUNTER 2021-04-12 10:54 | Emergency (ER) | payer MEDICARE ==
--- NOTE | 2021-04-12 11:42 | XRay Report ---
CHEST 1 VIEW 04/12/2021 10:25 AM INDICATION / CLINICAL INFORMATION: Lightheadedness/Dizziness. COMPARISON: 04/04/2021 FINDINGS: SUPPORT DEVICES: Stable, satisfactory device positioning. HEART / MEDIASTINUM: Stable. LUNGS / PLEURA: Increased vascular markings have similar appearance to prior exam. No pneumothorax. ADDITIONAL FINDINGS: No significant additional findings. IMPRESSION: 1. Bilateral increased vascular markings likely represent edema. Signer Name: Tylor Sun MD Signed: 04/12/2021 11:37 AM Workstation Name: [id number]
[2021-04-12 11:52] LABS: Basophils # (Auto) 0.1 K/mm3 (0.0-0.1); Basophils % (Auto) 1.1 % (0.0-1.8); Eosinophils # (Auto) 0.1 K/mm3 (0.0-0.4); Eosinophils % (Auto) 0.8 % (0.0-4.3); Hematocrit 26.2 % (30.3-42.9); Hemoglobin 8.4 gm/dl (10.1-14.3); Lymphocytes # (Auto) 1.3 K/mm3 (1.2-5.4); Lymphocytes % (Auto) 14.8 % (13.4-35.0); Mean Corpuscular HGB Conc 32 % (30-34); Mean Corpuscular Volume 94 fl (79-97); Monocytes # (Auto) 0.6 K/mm3 (0.0-0.8); Monocytes % (Auto) 7.3 % (0.0-7.3); Platelet Count 258 K/mm3 (140-440); Red Blood Count 2.79 M/mm3 (3.65-5.03)
[2021-04-12 12:02] LABS: INR 0.88 (0.87-1.13)
[2021-04-12 12:16] LABS: Creatine Kinase MB 3.5 ng/mL (0.0-4.0)
[2021-04-12 12:19] LABS: Albumin 3.1 g/dL (3.9-5); Calcium 7.2 mg/dL (8.4-10.2)
[2021-04-12 12:31] LABS: Chol/HDL Ratio 1.71 %
[2021-04-12] MEDS ORDERED: INSULIN REGULAR, HUMAN 100 UNITS/1 ML IV ONE (12:40)
[2021-04-12] MEDS ORDERED: ALBUTEROL 2.5 MG/3 ML NEBU IH ONE (12:40)
[2021-04-12] MEDS ORDERED: DEXTROSE 50% IN WATER (25GM) 50 ML SYRINGE IV ONE (12:40)
[2021-04-12] MEDS ORDERED: SODIUM POLYSTYRENE 15 GM/60 ML ORAL LIQD PO ONE (12:41)
[2021-04-12] MEDS ORDERED: CALCIUM CHLORIDE 1,000 MG in SODIUM CHLORIDE 0.9% 100 ML IV ONE (12:41)
--- NOTE | 2021-04-12 13:07 | Emergency Department Report ---
ED General Adult HPI - General Chief complaint: Hypoglycemia Stated complaint: LOW BLOOD GLUCOSE, DIALYSIS Time Seen by Provider: 04/12/21 11:09 Source: patient Mode of arrival: Ambulatory Limitations: No Limitations - History of Present Illness Initial comments: hypoglycemic glucose 64, given 1 amp d50, last glucose 155 , pt missed 3 sessions of dilaysis doesn;t lukeo who is her dialysis doctor is , no chets pain no sob -: Gradual, days(s) Severity scale (0 -10): 0 - Related Data Home Medications Medication Instructions Recorded Confirmed Last Taken Atorvastatin [Lipitor] 40 mg PO QHS 02/03/21 04/04/21 04/03/21 glipiZIDE [Glucotrol] 10 mg PO QDAY 02/03/21 04/04/21 04/03/21 Previous Rx's Medication Instructions Recorded Last Taken Type Sodium Bicarbonate 1,300 mg PO TID 30 Days #180 tablet 02/03/21 04/03/21 Rx amLODIPine 10 mg PO DAILY #30 tablet 02/26/21 04/03/21 Rx carvediloL [Coreg] 12.5 mg PO BID #60 tablet 02/26/21 04/03/21 Rx calcitrioL [Rocaltrol] 0.5 mcg PO QDAY 30 Days #30 capsule 03/07/21 04/03/21 Rx Sevelamer Carbonate [Renvela] 800 mg PO AC #90 tablet 03/13/21 04/03/21 Rx Loperamide [Imodium] 2 mg PO Q6H PRN #30 capsule 03/27/21 04/03/21 Rx Allergies Allergy/AdvReac Type Severity Reaction Status Date / Time ibuprofen AdvReac Unknown Verified 04/12/21 11:09 ED Review of Systems ROS: Stated complaint: LOW BLOOD GLUCOSE, DIALYSIS Other details as noted in HPI Constitutional: denies: chills, fever Eyes: denies: eye pain, eye discharge, vision change ENT: denies: ear pain, throat pain Respiratory: denies: cough, shortness of breath, wheezing Cardiovascular: denies: chest pain, palpitations Endocrine: no symptoms reported Gastrointestinal: denies: abdominal pain, nausea, diarrhea Genitourinary: denies: urgency, dysuria, discharge Musculoskeletal: denies: back pain, joint swelling, arthralgia Skin: denies: rash, lesions Neurological: denies: headache, weakness, paresthesias Psychiatric: denies: anxiety, depression Hematological/Lymphatic: denies: easy bleeding, easy bruising ED Past Medical Hx - Past Medical History Previous Medical History?: Yes Hx Hypertension: Yes Hx Congestive Heart Failure: No Hx Diabetes: Yes Hx Renal Disease: Yes (On dialysis) Hx Asthma: No Hx COPD: No - Surgical History Additional Surgical History: Toe amputation - Social History Smoking Status: Never Smoker - Medications Home Medications: Home Medications Medication Instructions Recorded Confirmed Last Taken Type Atorvastatin [Lipitor] 40 mg PO QHS 02/03/21 04/04/21 04/03/21 History Sodium Bicarbonate 1,300 mg PO TID 30 Days #180 tablet 02/03/21 04/04/21 04/03/21 Rx glipiZIDE [Glucotrol] 10 mg PO QDAY 02/03/21 04/04/21 04/03/21 History amLODIPine 10 mg PO DAILY #30 tablet 02/26/21 04/04/21 04/03/21 Rx carvediloL [Coreg] 12.5 mg PO BID #60 tablet 02/26/21 04/04/21 04/03/21 Rx calcitrioL [Rocaltrol] 0.5 mcg PO QDAY 30 Days #30 capsule 03/07/21 04/04/21 04/03/21 Rx Sevelamer Carbonate [Renvela] 800 mg PO AC #90 tablet 03/13/21 04/04/21 04/03/21 Rx Loperamide [Imodium] 2 mg PO Q6H PRN #30 capsule 03/27/21 04/04/21 04/03/21 Rx ED Physical Exam - General Limitations: No Limitations General appearance: alert, in no apparent distress, other (blind in both eyes ) - Head Head exam: Present: atraumatic, normocephalic - Eye Eye exam: Present: normal appearance - ENT ENT exam: Present: mucous membranes moist - Neck Neck exam: Present: normal inspection - Respiratory Respiratory exam: Present: normal lung sounds bilaterally. Absent: respiratory distress - Cardiovascular Cardiovascular Exam: Present: regular rate, normal rhythm. Absent: systolic murmur, diastolic murmur, rubs, gallop - GI/Abdominal GI/Abdominal exam: Present: soft, normal bowel sounds - Extremities Exam Extremities exam: Present: normal inspection - Back Exam Back exam: Present: normal inspection - Neurological Exam Neurological exam: Present: alert, oriented X3 - Psychiatric Psychiatric exam: Present: normal affect, normal mood - Skin Skin exam: Present: warm, dry, intact, normal color. Absent: rash ED Course Vital Signs 04/12/21 04/12/21 04/12/21 11:05 14:01 14:15 Temperature 98.5 F Pulse Rate 76 87 85 Respiratory 16 20 Rate Blood Pressure 162/76 165/79 Blood Pressure 172/81 [Left] O2 Sat by Pulse 98 Oximetry O2 Sat by Pulse 98 Oximetry [ Anterior Bilateral Throughout] 04/12/21 04/12/21 04/12/21 14:30 14:43 14:45 Temperature Pulse Rate 85 85 Respiratory Rate Blood Pressure 164/77 144/75 Blood Pressure [Left] O2 Sat by Pulse 98 Oximetry O2 Sat by Pulse Oximetry [ Anterior Bilateral Throughout] 04/12/21 04/12/21 04/12/21 14:46 15:00 15:15 Temperature Pulse Rate 88 90 Respiratory 18 Rate Blood Pressure 162/76 139/76 145/74 Blood Pressure [Left] O2 Sat by Pulse 98 98 Oximetry O2 Sat by Pulse Oximetry [ Anterior Bilateral Throughout] 04/12/21 04/12/21 04/12/21 15:30 15:45 16:00 Temperature Pulse Rate 91 H 91 H 92 H Respiratory Rate Blood Pressure 144/74 155/75 156/83 Blood Pressure [Left] O2 Sat by Pulse Oximetry O2 Sat by Pulse Oximetry [ Anterior Bilateral Throughout] 04/12/21 04/12/21 04/12/21 16:15 16:30 16:45 Temperature Pulse Rate 92 H 91 H 91 H Respiratory Rate Blood Pressure 141/79 142/73 137/69 Blood Pressure [Left] O2 Sat by Pulse Oximetry O2 Sat by Pulse Oximetry [ Anterior Bilateral Throughout] 04/12/21 04/12/21 04/12/21 17:00 17:15 17:20 Temperature 98.7 F Pulse Rate 90 91 H 92 H Respiratory 19 Rate Blood Pressure 145/75 137/71 136/59 Blood Pressure [Left] O2 Sat by Pulse Oximetry O2 Sat by Pulse 99 Oximetry [ Anterior Bilateral Throughout] - Reevaluation(s) Reevaluation #1: 04/12/21 13:06 work up showed high K , glucose and insulin , albutero and [place] spoke with nephro dr jean, she will get dialysis today Reevaluation #2: 04/12/21 19:29 pt reurtned back from dilaysis , repeat CMP showed K of 3.4 will d/c home 04/12/21 19:29 ED Medical Decision Making - Lab Data Result diagrams: 04/12/21 11:37 04/12/21 18:09 Critical care attestation.: If time is entered above; I have spent that time in minutes in the direct care of this critically ill patient, excluding procedure time. ED Disposition Clinical Impression: Hypoglycemia, Hyperkalemia, ESRD on dialysis, Noncompliance Disposition: 01 HOME / SELF CARE / HOMELESS Is pt being admited?: No Does the pt Need Aspirin: No Condition: Stable
[2021-04-12] MEDS ORDERED: SODIUM CHLORIDE 0.9% 100 ML IV PRN (13:08)
[2021-04-12] MEDS ORDERED: DEXTROSE 10% *Hypoglycemia IV PRN (13:10)
[2021-04-12 15:48] LABS: Hepatitis B Surface Antigen Non-Reactive (Negative); Hepatitis C Virus Antibody Non-Reactive (NonReactive)
[2021-04-12 17:55] VITALS: BP 136/59
== END 2021-04-12 19:56 | disposition home or self-care (01) ==
LOC: ED 10:54
DX: E11.649 Type 2 diabetes mellitus with hypoglycemia without coma (principal); E87.5 Hyperkalemia; I12.0 Hypertensive chronic kidney disease with stage 5 chronic kidney disease or end stage renal disease; N18.6 End stage renal disease; Z99.2 Dependence on renal dialysis; Z91.15 Patient's noncompliance with renal dialysis; Z89.429 Acquired absence of other toe(s), unspecified side; Z88.8 Allergy status to other drugs, medicaments and biological substances
CPT/HCPCS: 36415; 71045; 80053; 80061; 80074; 82550; 82553; 84484; 85025; 85610; 94640; 96374; 96375; 99284; J3490; Q9967; J1815

== ENCOUNTER 2021-04-21 16:03 | Observation (INO) | payer MEDICARE ==
--- NOTE | 2021-04-21 18:06 | XRay Report ---
CHEST 1 VIEW 04/21/2021 4:58 PM INDICATION / CLINICAL INFORMATION: Dyspnea. COMPARISON: 04/12/2021 FINDINGS: SUPPORT DEVICES: Stable, satisfactory device positioning. HEART / MEDIASTINUM: No significant abnormality. LUNGS / PLEURA: Bilateral pulmonary opacities in the mid lower lungs No pneumothorax. ADDITIONAL FINDINGS: No significant additional findings. IMPRESSION: 1. Bilateral pulmonary opacities may represent edema Signer Name: Martín Pittman MD Signed: 04/21/2021 6:02 PM Workstation Name: [id number]
[2021-04-21 18:26] LABS: Basophils # (Auto) 0.1 K/mm3 (0.0-0.1); Basophils % (Auto) 0.7 % (0.0-1.8); Eosinophils # (Auto) 0.1 K/mm3 (0.0-0.4); Eosinophils % (Auto) 1.6 % (0.0-4.3); Hemoglobin 6.2 gm/dl (10.1-14.3); Lymphocytes # (Auto) 1.9 K/mm3 (1.2-5.4); Lymphocytes % (Auto) 21.9 % (13.4-35.0); Mean Corpuscular HGB Conc 33 % (30-34); Mean Corpuscular Volume 94 fl (79-97); Monocytes # (Auto) 1.1 K/mm3 (0.0-0.8); Monocytes % (Auto) 12.7 % (0.0-7.3); Platelet Count 218 K/mm3 (140-440); Red Blood Count 2.04 M/mm3 (3.65-5.03)
[2021-04-21 18:29] LABS: Hematocrit 19.2 % (30.3-42.9)
[2021-04-21] MEDS ORDERED: SODIUM CHLORIDE 0.9% 500 ML 500 ML IV ONE (18:52)
[2021-04-21 19:16] LABS: Creatine Kinase MB 3.6 ng/mL (0.0-4.0)
[2021-04-21 19:17] LABS: Albumin 2.8 g/dL (3.9-5); Calcium 6.6 mg/dL (8.4-10.2)
[2021-04-21 19:28] LABS: Chol/HDL Ratio 2.62 %
[2021-04-21] MEDS ORDERED: FUROSEMIDE 100 MG/10 ML INJ IV ONE ×2 (20:00→23:15)
[2021-04-21] MEDS ORDERED: SODIUM POLYSTYRENE 15 GM/60 ML ORAL LIQD PO ONE ×2 (20:00→23:15)
--- NOTE | 2021-04-21 22:06 | Emergency Department Report ---
ED General Adult HPI - General Chief complaint: Medical Clearance Stated complaint: MISSED DIALYSIS Time Seen by Provider: 04/21/21 17:31 Source: EMS Mode of arrival: Stretcher Limitations: Physical Limitation - History of Present Illness Initial comments: pt needs dialysis , she hasn;t had one for 3 weeks cos she doesn;t have a chair , Dr Leonard called for her to be elvaluated , nohemy SOB or chest pain no fever, pt is legally blind, -: Gradual, week(s) (3) Treatments Prior to Arrival: none - Related Data Home Medications Medication Instructions Recorded Confirmed Last Taken Atorvastatin [Lipitor] 40 mg PO QHS 02/03/21 04/04/21 04/03/21 glipiZIDE [Glucotrol] 10 mg PO QDAY 02/03/21 04/04/21 04/03/21 Previous Rx's Medication Instructions Recorded Last Taken Type Sodium Bicarbonate 1,300 mg PO TID 30 Days #180 tablet 02/03/21 04/03/21 Rx amLODIPine 10 mg PO DAILY #30 tablet 02/26/21 04/03/21 Rx carvediloL [Coreg] 12.5 mg PO BID #60 tablet 02/26/21 04/03/21 Rx calcitrioL [Rocaltrol] 0.5 mcg PO QDAY 30 Days #30 capsule 03/07/21 04/03/21 Rx Sevelamer Carbonate [Renvela] 800 mg PO AC #90 tablet 03/13/21 04/03/21 Rx Loperamide [Imodium] 2 mg PO Q6H PRN #30 capsule 03/27/21 04/03/21 Rx Allergies Allergy/AdvReac Type Severity Reaction Status Date / Time ibuprofen AdvReac Unknown Verified 04/12/21 11:09 ED Review of Systems ROS: Stated complaint: MISSED DIALYSIS Other details as noted in HPI Constitutional: denies: chills, fever Eyes: denies: eye pain, eye discharge, vision change ENT: denies: ear pain, throat pain Respiratory: denies: cough, shortness of breath, wheezing Cardiovascular: denies: chest pain, palpitations Endocrine: no symptoms reported Gastrointestinal: denies: abdominal pain, nausea, diarrhea Genitourinary: denies: urgency, dysuria, discharge Musculoskeletal: denies: back pain, joint swelling, arthralgia Skin: denies: rash, lesions Neurological: denies: headache, weakness, paresthesias Psychiatric: denies: anxiety, depression Hematological/Lymphatic: denies: easy bleeding, easy bruising ED Past Medical Hx - Past Medical History Hx Hypertension: Yes Hx Congestive Heart Failure: No Hx Diabetes: Yes Hx Renal Disease: Yes (On dialysis) Hx Asthma: No Hx COPD: No - Surgical History Additional Surgical History: Toe amputation - Social History Smoking Status: Never Smoker - Medications Home Medications: Home Medications Medication Instructions Recorded Confirmed Last Taken Type Atorvastatin [Lipitor] 40 mg PO QHS 02/03/21 04/04/21 04/03/21 History Sodium Bicarbonate 1,300 mg PO TID 30 Days #180 tablet 02/03/21 04/04/21 04/03/21 Rx glipiZIDE [Glucotrol] 10 mg PO QDAY 02/03/21 04/04/21 04/03/21 History amLODIPine 10 mg PO DAILY #30 tablet 02/26/21 04/04/21 04/03/21 Rx carvediloL [Coreg] 12.5 mg PO BID #60 tablet 02/26/21 04/04/21 04/03/21 Rx calcitrioL [Rocaltrol] 0.5 mcg PO QDAY 30 Days #30 capsule 03/07/21 04/04/21 04/03/21 Rx Sevelamer Carbonate [Renvela] 800 mg PO AC #90 tablet 03/13/21 04/04/21 04/03/21 Rx Loperamide [Imodium] 2 mg PO Q6H PRN #30 capsule 03/27/21 04/04/21 04/03/21 Rx ED Physical Exam - General Limitations: Physical Limitation General appearance: alert, other (legally blind ) - Head Head exam: Present: atraumatic, normocephalic - Eye Eye exam: Present: normal appearance Pupils: Present: other (legally blind ) - ENT ENT exam: Present: mucous membranes moist - Neck Neck exam: Present: normal inspection - Respiratory Respiratory exam: Present: normal lung sounds bilaterally, rales. Absent: respiratory distress - Cardiovascular Cardiovascular Exam: Present: regular rate, normal rhythm. Absent: systolic murmur, diastolic murmur, rubs, gallop - GI/Abdominal GI/Abdominal exam: Present: soft, normal bowel sounds - Extremities Exam Extremities exam: Present: normal inspection - Back Exam Back exam: Present: normal inspection - Neurological Exam Neurological exam: Present: alert, oriented X3 - Psychiatric Psychiatric exam: Present: normal affect, normal mood - Skin Skin exam: Present: warm, dry, intact, normal color. Absent: rash ED Course Vital Signs 04/21/21 04/21/21 04/21/21 17:28 20:31 20:46 Temperature 98.1 F 98 F Pulse Rate 84 80 79 Respiratory 16 14 16 Rate Blood Pressure 134/74 147/78 Blood Pressure 136/73 [Left] O2 Sat by Pulse 98 99 99 Oximetry 04/21/21 04/21/21 04/21/21 21:16 21:46 21:57 Temperature 98.2 F 98.2 F 98.1 F Pulse Rate 78 81 83 Respiratory 14 20 16 Rate Blood Pressure 156/82 151/87 151/87 Blood Pressure [Left] O2 Sat by Pulse 98 100 99 Oximetry - Reevaluation(s) Reevaluation #1: 04/21/21 22:03 not in distress , vss , anemia noted , transfused , spoke with dr Leonard, will consult him and he will dialyze her tomorrow ED Medical Decision Making - Lab Data Result diagrams: 04/21/21 17:39 04/21/21 17:39 Critical care attestation.: If time is entered above; I have spent that time in minutes in the direct care of this critically ill patient, excluding procedure time. ED Disposition Clinical Impression: SOB (shortness of breath), CRF (chronic renal failure), Anemia Disposition: 09 ADMITTED INPATIENT Is pt being admited?: Yes Does the pt Need Aspirin: No Condition: Stable Referrals: PRIMARY CARE, [Primary Care Provider] - 3-5 Days
[2021-04-22] MEDS ORDERED: ACETAMINOPHEN 325 MG TAB PO PRN (00:32)
[2021-04-22] MEDS ORDERED: ALBUTEROL 2.5 MG/3 ML NEBU IH PRN (00:32)
[2021-04-22] MEDS ORDERED: MORPHINE 2 MG/1 ML INJ IV PRN (00:32)
[2021-04-22] MEDS ORDERED: HYDROmorphone 1 MG/1 ML INJ IV PRN (00:32)
[2021-04-22] MEDS ORDERED: ONDANSETRON 4 MG/2 ML INJ IV PRN (00:32)
--- NOTE | 2021-04-22 00:39 | History and Physical Report ---
History of Present Illness Date of examination: 04/22/21 Date of admission: 04/22/21 Chief complaint: Missed dialysis History of present illness: 60 years old female with history of diabetes, hypertension, end-stage renal disease on dialysis was brought to the emergency room because patient missed dialysis. Patient has not had any dialysis for the last 3 weeks because patient does not have a chair. Subsequently patient was sent to the emergency room by Dr. Stapleton hand alterations seamstress for dialysis. Patient denied any chest pain no shortness of breath no other complain But in the emergency room patient is found to have hemoglobin of 6.2 and hematocrit 19.2, BUN of 55 creatinine 13.2, potassium 5.4. So going to admit the patient, we are giving 2 unit of packed red blood cell. consult hand alterations seamstress for hemodialysis Past History Past Medical History: diabetes, ESRD, hypertension, renal failure Medications and Allergies Allergies Allergy/AdvReac Type Severity Reaction Status Date / Time ibuprofen AdvReac Unknown Verified 04/12/21 11:09 Home Medications Medication Instructions Recorded Confirmed Last Taken Type Atorvastatin [Lipitor] 40 mg PO QHS 02/03/21 04/04/21 04/03/21 History Sodium Bicarbonate 1,300 mg PO TID 30 Days #180 tablet 02/03/21 04/04/21 04/03/21 Rx glipiZIDE [Glucotrol] 10 mg PO QDAY 02/03/21 04/04/21 04/03/21 History amLODIPine 10 mg PO DAILY #30 tablet 02/26/21 04/04/21 04/03/21 Rx carvediloL [Coreg] 12.5 mg PO BID #60 tablet 02/26/21 04/04/21 04/03/21 Rx calcitrioL [Rocaltrol] 0.5 mcg PO QDAY 30 Days #30 capsule 03/07/21 04/04/21 04/03/21 Rx Sevelamer Carbonate [Renvela] 800 mg PO AC #90 tablet 03/13/21 04/04/21 04/03/21 Rx Loperamide [Imodium] 2 mg PO Q6H PRN #30 capsule 03/27/21 04/04/21 04/03/21 Rx Review of Systems Constitutional: other (Missed dialysis) Exam - Constitutional Vitals: Temp Pulse Resp BP Pulse Ox 98.2 F 79 16 156/87 100 04/22/21 00:30 04/22/21 00:30 04/22/21 00:30 04/22/21 00:30 04/22/21 00:30 General appearance: Present: no acute distress, well-nourished - EENT Eyes: Present: PERRL ENT: hearing intact, clear oral mucosa - Neck Neck: Present: supple, normal ROM - Respiratory Respiratory effort: normal Respiratory: bilateral: diminished - Cardiovascular Heart Sounds: Present: S1 & S2. Absent: rub, click - Extremities Extremities: pulses symmetrical, No edema Peripheral Pulses: within normal limits - Abdominal General gastrointestinal: Present: soft, non-tender, non-distended, normal bowel sounds Female genitourinary: Present: normal - Integumentary Integumentary: Present: clear, warm, dry - Musculoskeletal Musculoskeletal: gait normal, strength equal bilaterally - Psychiatric Psychiatric: appropriate mood/affect, intact judgment & insight - Neurologic Neurologic: CNII-XII intact, moves all extremities HEART Score - HEART Score Troponin: Troponin T 0.074 ng/mL (0.00-0.029) H 04/21/21 17:39 Results - Labs CBC & Chem 7: 04/21/21 17:39 04/21/21 17:39 Labs: Laboratory Last Values WBC 8.7 K/mm3 (4.5-11.0) 04/21/21 17:39 RBC 2.04 M/mm3 (3.65-5.03) L 04/21/21 17:39 Hgb 6.2 gm/dl (10.1-14.3) L 04/21/21 17:39 Hct 19.2 % (30.3-42.9) L* 04/21/21 17:39 MCV 94 fl (79-97) 04/21/21 17:39 MCH 31 pg (28-32) 04/21/21 17:39 MCHC 33 % (30-34) 04/21/21 17:39 RDW 16.0 % (13.2-15.2) H 04/21/21 17:39 Plt Count 218 K/mm3 (140-440) 04/21/21 17:39 Lymph % (Auto) 21.9 % (13.4-35.0) 04/21/21 17:39 Love % (Auto) 12.7 % (0.0-7.3) H 04/21/21 17:39 Eos % (Auto) 1.6 % (0.0-4.3) 04/21/21 17:39 Baso % (Auto) 0.7 % (0.0-1.8) 04/21/21 17:39 Lymph # (Auto) 1.9 K/mm3 (1.2-5.4) 04/21/21 17:39 Love # (Auto) 1.1 K/mm3 (0.0-0.8) H 04/21/21 17:39 Eos # (Auto) 0.1 K/mm3 (0.0-0.4) 04/21/21 17:39 Baso # (Auto) 0.1 K/mm3 (0.0-0.1) 04/21/21 17:39 Seg Neutrophils % 63.1 % (40.0-70.0) 04/21/21 17:39 Seg Neutrophils # 5.5 K/mm3 (1.8-7.7) 04/21/21 17:39 Sodium 133 mmol/L (137-145) L 04/21/21 17:39 Potassium 5.4 mmol/L (3.6-5.0) H 04/21/21 17:39 Chloride 100.5 mmol/L (98-107) 04/21/21 17:39 Carbon Dioxide 17 mmol/L (22-30) L 04/21/21 17:39 Anion Gap 21 mmol/L 04/21/21 17:39 BUN 55 mg/dL (7-17) H 04/21/21 17:39 Creatinine 13.0 mg/dL (0.6-1.2) H 04/21/21 17:39 Estimated GFR 4 ml/min 04/21/21 17:39 BUN/Creatinine Ratio 4 % 04/21/21 17:39 Glucose 92 mg/dL (65-100) 04/21/21 17:39 POC Glucose 104 mg/dL (70-105) 04/21/21 16:11 Calcium 6.6 mg/dL (8.4-10.2) L 04/21/21 17:39 Total Bilirubin 0.40 mg/dL (0.1-1.2) 04/21/21 17:39 AST 10 units/L (5-40) 04/21/21 17:39 ALT 7 units/L (7-56) 04/21/21 17:39 Alkaline Phosphatase 93 units/L (35-129) 04/21/21 17:39 Total Creatine Kinase 155 units/L (30-135) H 04/21/21 17:39 CK-MB (CK-2) 3.6 ng/mL (0.0-4.0) 04/21/21 17:39 CK-MB (CK-2) Rel Index 2.3 (0-4) 04/21/21 17:39 Troponin T 0.074 ng/mL (0.00-0.029) H 04/21/21 17:39 Total Protein 6.6 g/dL (6.3-8.2) 04/21/21 17:39 Albumin 2.8 g/dL (3.9-5) L 04/21/21 17:39 Albumin/Globulin Ratio 0.7 % 04/21/21 17:39 Triglycerides 128 mg/dL (2-149) 04/21/21 17:39 Cholesterol 113 mg/dL (50-199) 04/21/21 17:39 LDL Cholesterol Direct 54 mg/dL (50-130) 04/21/21 17:39 HDL Cholesterol 43 mg/dL (40-59) 04/21/21 17:39 Cholesterol/HDL Ratio 2.62 % 04/21/21 17:39 Blood Type O POSITIVE 04/21/21 18:45 Antibody Screen Negative 04/21/21 18:45 Crossmatch See Detail 04/21/21 18:45 - Imaging and Cardiology Chest x-ray: report reviewed Assessment and Plan VTE prophylaxis?: Chemical Plan of care discussed with patient/family: Yes - Patient Problems (1) End-stage renal disease on hemodialysis Current Visit: Yes Status: Acute Plan to address problem: Admit the patient to the medical telemetry. Avoid nephrotoxic drug. Renally dose medication. Reconsult nephrology for hemodialysis as soon as possible. Recheck BMP in the morning (2) Anemia Current Visit: Yes Status: Acute Plan to address problem: Transfuse 2 unit of packed red blood blood cell. Pepcid 20 mg p.o. twice daily. Stool for occult blood test. If needed will consult GI (3) Shortness of breath Current Visit: Yes Status: Acute Plan to address problem: Oxygen via nasal cannula 3 L/min. DuoNeb by nebulizer every 4 hours. Albuterol via nebulizer every 4 hours as needed (4) CHF (congestive heart failure) Current Visit: No Status: Acute Qualifiers: Plan to address problem: Fluid restriction. Maintain input output. Hemodialysis as per nephrology. Daily weight (5) Hypertension Current Visit: No Status: Chronic Qualifiers: Hypertension type: primary hypertension Qualified Code(s): I10 - Essential (primary) hypertension Plan to address problem: Amlodipine 10 mg p.o. daily. Coreg 12.5 mg p.o. twice daily. We will continue the home medication (6) T2DM (type 2 diabetes mellitus) Current Visit: No Status: Chronic Qualifiers: Diabetes mellitus long-term insulin use: without long-term use Chronic kidney disease stage: on chronic dialysis Plan to address problem: 1800 kcal ADA diet. Humalog sliding scale moderate dose coverage. Glipizide 10 mg p.o. daily. Diabetic education (7) DVT prophylaxis Current Visit: No Status: Acute
[2021-04-22] MEDS ORDERED: DEXTROSE 10% *Hypoglycemia IV PRN (00:43)
[2021-04-22] MEDS: IPRATROPIUM/ALBUTEROL SULFATE 3 ML AMPUL.NEB IH SCH ×3 (03:27→15:23)
[2021-04-22 05:10] LABS: Hematocrit 33.2 % (30.3-42.9); Hemoglobin 11.1 gm/dl (10.1-14.3)
[2021-04-22] MEDS: INSULIN LISPRO 100 UNIT/ML SUB-Q SCH ×2 (07:30→12:02)
[2021-04-22] MEDS ORDERED: SODIUM CHLORIDE 0.9% 100 ML IV PRN (07:45)
[2021-04-22] MEDS ORDERED: HEPARIN 10,000 UNITS/10 ML VIAL IV PRN (07:45)
[2021-04-22] MEDS ORDERED: LOPERAMIDE 2 MG CAP PO PRN (08:38)
--- NOTE | 2021-04-22 09:55 | Consultation ---
History of Present Illness - Reason for Consult Consult date: 04/22/21 end stage renal disease - History of Present Illness The patient is a 60 Yo female with history of Diabetes, Hypertension, Diabetic retinopathy (b/l blindness) and ESRD on hemodialysis who was brought to [facility] ED 04/21 for hemodialysis need. Patient has not had any dialysis for the last 3 weeks because patient does not have a outpatient dialysis chair. Patient denies any chest pain, shortness of breath, cough, fever, chills, leg swelling, N, V, D, abd pain or dizziness. Labs notable for Hemoglobin of 6.2, hematocrit 19.2, BUN 55 creatinine 13.2, potassium 5.4. Arianna was admitted for further evaluation. Nephrology was consulted for ESRD management. Past History Past Medical History: diabetes, ESRD, hypertension, renal failure Medications and Allergies Allergies Allergy/AdvReac Type Severity Reaction Status Date / Time ibuprofen AdvReac Unknown Verified 04/12/21 11:09 Home Medications Medication Instructions Recorded Confirmed Last Taken Type Atorvastatin [Lipitor] 40 mg PO QHS 02/03/21 04/04/21 04/03/21 History Sodium Bicarbonate 1,300 mg PO TID 30 Days #180 tablet 02/03/21 04/04/21 04/03/21 Rx glipiZIDE [Glucotrol] 10 mg PO QDAY 02/03/21 04/04/21 04/03/21 History amLODIPine 10 mg PO DAILY #30 tablet 02/26/21 04/04/21 04/03/21 Rx carvediloL [Coreg] 12.5 mg PO BID #60 tablet 02/26/21 04/04/21 04/03/21 Rx calcitrioL [Rocaltrol] 0.5 mcg PO QDAY 30 Days #30 capsule 03/07/21 04/04/21 04/03/21 Rx Sevelamer Carbonate [Renvela] 800 mg PO AC #90 tablet 03/13/21 04/04/21 04/03/21 Rx Loperamide [Imodium] 2 mg PO Q6H PRN #30 capsule 03/27/21 04/04/21 04/03/21 Rx Active Meds: Active Medications Acetaminophen (Acetaminophen 325 Mg Tab) 650 mg PO Q4H PRN PRN Reason: Pain MILD(1-3)/Fever >100.5/[place] Albuterol (Albuterol 2.5 Mg/3 Ml Nebu) 2.5 mg IH Q3HRT PRN PRN Reason: Shortness Of Breath Albuterol/Ipratropium (Ipratropium/Albuterol Sulfate 3 Ml Ampul.Neb) 1 ampul IH Q6HRT [facility] Last Admin: 04/22/21 09:33 Dose: 1 ampul Amlodipine Besylate (Amlodipine 10 Mg Tab) 10 mg PO DAILY [facility] Atorvastatin Calcium (Atorvastatin 40 Mg Tab) 40 mg PO QHS [facility] Calcitriol (Calcitriol 0.5 Mcg Cap) 0.5 mcg PO QDAY [facility] Carvedilol (Carvedilol 12.5 Mg Tab) 12.5 mg PO BID [facility] Dextrose (Dextrose 10% *Hypoglycemia) 0 ml IV DIRECT PRN; Protocol PRN Reason: Hypoglycemia Famotidine (Famotidine 20 Mg Tab) 20 mg PO QAM [facility] Glipizide (Glipizide 10 Mg Tab) 10 mg PO QDDIAB [facility] Heparin Sodium (Porcine) (Heparin 10,000 Units/10 Ml Vial) 3,000 unit IV FELI PRN PRN Reason: hemodialysis Hydromorphone HCl (Hydromorphone 1 Mg/1 Ml Inj) 0.5 mg IV Q3H PRN PRN Reason: Pain , Severe (7-10) Sodium Chloride (Nacl 0.9%) 100 mls @ 999 mls/hr IV FELI PRN PRN Reason: Hypotension Insulin Human Lispro (Insulin Lispro 100 Unit/Ml) 0 unit SUB-Q ACHS [facility]; Protocol Loperamide HCl (Loperamide 2 Mg Cap) 2 mg PO Q6H PRN PRN Reason: Diarrhea Morphine Sulfate (Morphine 2 Mg/1 Ml Inj) 2 mg IV Q4H PRN PRN Reason: Pain, Moderate (4-6) Ondansetron HCl (Ondansetron 4 Mg/2 Ml Inj) 4 mg IV Q8H PRN PRN Reason: Nausea And Vomiting Sevelamer Carbonate (Sevelamer Carbonate 800 Mg Tab) 800 mg PO AC [facility] Sodium Chloride (Sodium Chloride 0.9% 10 Ml Flush Syringe) 10 ml IV BID [facility] Sodium Chloride (Sodium Chloride 0.9% 10 Ml Flush Syringe) 10 ml IV PRN PRN PRN Reason: LINE FLUSH Review of Systems All systems: negative Exam - Vital Signs Vital signs: Vital Signs Pulse Resp BP Pulse Ox 84 16 136/73 98 04/21/21 17:28 04/21/21 17:28 04/21/21 17:28 04/21/21 17:28 Results - Lab Results 04/22/21 04:14 04/22/21 10:02 Most recent lab results Calcium 6.6 mg/dL (8.4-10.2) L 04/21/21 17:39 Assessment and Plan 1. ESRD: On maintenance hemodialysis. Currently patient is not established with any dialysis unit. Meds dosage based on GFR. Hemodialysis: 04/22. 2. FEN: Hyperkalemia, HD today. Metabolic acidosis, HD today. Renal diet. Monitor lytes and volume status. 3. Normocytic Anemia, POA: S/p PRBC. Epogen with HD. Monitor. 4. DM-2: Monitor. 5. Hypertension: Continue home meds. Volume control with HD. Monitor. Subjective: Patient was seen and examined at the bedside. Objective: General appearance: well-developed, appears stated age, no distress noted HEENT: ATNC, pupils equal Neck: trachea midline Respiratory: ctab Heart: regular, S1S2, no murmur Gastrointestinal: soft, normoactive bowel sounds, not tender Integumentary: no rash, warm and dry Ext: no edema Neurologic: AO, b/l blindness, able to move extremities Hemodialysis access: R IJ tunnel catheter
[2021-04-22] MEDS ORDERED: FAMOTIDINE 20 MG TAB PO SCH (10:00)
[2021-04-22] MEDS ORDERED: amLODIPine 10 MG TAB PO SCH (10:00)
[2021-04-22] MEDS ORDERED: CALCITRIOL 0.5 MCG CAP PO SCH (10:00)
[2021-04-22] MEDS ORDERED: carvediloL 12.5 MG TAB PO SCH (10:00)
--- NOTE | 2021-04-22 10:21 | Electrocardiograph Report ---
[facility] Test Date: 2021-04-21 Test Time: 18:16:57 Pat Name: MIRTHA ORTA Department: Room: A392 1 Gender: F Hydrogeology Professor: SANDEEP : 1960 Requested By: FLORA SMITH Order Number: [id number] Reading MD: Alejandro Mcdowell Measurements Intervals [place] Rate: 81 P: 56 MI: 204 QRS: -34 QRSD: 79 T: 63 QT: 420 QTc: 487 Interpretive Statements Sinus rhythm Borderline prolonged MI interval Left axis deviation Low voltage, precordial leads Consider anterior infarct Compared to ECG 04/04/2021 09:16:06 No significant change noted. Electronically Signed On 04-22-2021 10:21:36 EST by Alejandro Mcdowell
[2021-04-22] MEDS ORDERED: glipiZIDE 10 MG TAB PO SCH (12:00)
[2021-04-22] MEDS: SEVELAMER CARBONATE 800 MG TAB PO SCH ×2 (12:03→14:49)
--- NOTE | 2021-04-22 12:15 | Discharge Summary ---
Providers - Providers Date of Admission: 04/22/21 00:32 Date of discharge: 04/22/21 Attending physician: ANGEL JOHANSEN MD 04/21/21 19:10 Consult to Physician [CONS] Stat Comment: Consulting Provider: SHARON DUMONT Physician Instructions: Reason For Exam: crf 04/22/21 00:32 Consult to Dietitian/Nutrition [CONS] Routine Physician Instructions: Reason For Exam: Reason for Consult: Diet education Primary care physician: AUTOMATION CONTROL INTEGRATOR Hospitalization Reason for admission: Hyperkalemia; anemia of chronic disease Condition: Stable Pertinent studies: Reviewed. Procedures: None. Hospital course: The patient is a 56-year-old female past medical history of ESRD on hemodialysis (MWF)noncompliant, insulin-dependent type 2 diabetes mellitus, hypertension, blindness, and medication noncompliance who presents for missed hemodialysis sessions over the previous 3 weeks. The patient left AMA from [facility] on 04/05/2021 after presenting for repeated missed HD sessions. The patient underwent emergent hemodialysis at that point in time. On presentation, patient was found to have a hemoglobin of 6.2 and potassium of 5.4. Nephrology was consulted for further management. Patient underwent hemodialysis and was transfused 2 units packed RBCs. Patient was found to have a creatinine of 13.0. Patient has been counseled at length about the importance of being compliant with hemodialysis in order to avoid premature . Patient expresses understanding. Repeat BMP revealed potassium of 6.5. The patient underwent a second session of hemodialysis on 04/22/2021. Afterwards, the patient will be discharged home. Disposition: 01 HOME / SELF CARE / HOMELESS Final Discharge Diagnosis (Prints w/discharge instructions): ESRD on hemodialysis, hyperkalemia, metabolic acidosis, hypocalcemia, anemia of chronic disease, medication noncompliance Time spent for discharge: 45 min Core Measure Documentation - Palliative Care Palliative Care/ Comfort Measures: Not Applicable - Core Measures Any of the following diagnoses?: none Exam - Constitutional Vitals: Temp Pulse Resp BP Pulse Ox 98.2 F 84 18 173/95 100 04/22/21 05:22 04/22/21 09:34 04/22/21 09:34 04/22/21 05:22 04/22/21 09:38 General appearance: Present: no acute distress - EENT Eyes: Present: PERRL, EOM intact ENT: hearing intact, clear oral mucosa, edentulous - Neck Neck: Present: supple, normal ROM - Respiratory Respiratory effort: normal Respiratory: bilateral: CTA - Cardiovascular Rhythm: regular Heart Sounds: Present: S1 & S2 - Extremities Extremities: no ischemia, pulses intact, pulses symmetrical, No edema, normal temperature, normal color Peripheral Pulses: within normal limits - Abdominal General gastrointestinal: Present: soft, non-tender, non-distended, normal bowel sounds Female genitourinary: Present: deferred - Rectal Rectal Exam: deferred - Integumentary Integumentary: Present: clear, warm, dry - Musculoskeletal Musculoskeletal: strength equal bilaterally - Psychiatric Psychiatric: appropriate mood/affect, cooperative - Neurologic Neurologic: CNII-XII intact, moves all extremities - Allied Health Allied health notes reviewed: nursing Plan Activity: no restrictions Diet: renal Additional Instructions: The patient is a 56-year-old female past medical history of ESRD on hemodialysis (MWF)noncompliant, insulin-dependent type 2 diabetes mellitus, hypertension, blindness, and medication noncompliance who presents for missed hemodialysis sessions over the previous 3 weeks. The patient left AMA from [facility] on 04/05/2021 after presenting for repeated missed HD sessions. The patient underwent emergent hemodialysis at that point in time. On presentation, patient was found to have a hemoglobin of 6.2 and potassium of 5.4. Nephrology was consulted for further management. Patient underwent hemodialysis and was transfused 2 units packed RBCs. Patient was found to have a creatinine of 13.0. Patient has been counseled at length about the importance of being compliant with hemodialysis in order to avoid premature . Patient expresses understanding. Repeat BMP revealed potassium of 6.5. The patient underwent a second session of hemodialysis on 04/22/2021. Afterwards, the patient will be discharged home. Care Plan Goals: Patient is medically clear for discharge. Assessment: The patient is a 56-year-old female past medical history of ESRD on hemodialysis (MWF)noncompliant, insulin-dependent type 2 diabetes mellitus, hypertension, blindness, and medication noncompliance who presents for missed hemodialysis sessions over the previous 3 weeks. The patient left AMA from [facility] on 04/05/2021 after presenting for repeated missed HD sessions. The patient underwent emergent hemodialysis at that point in time. On pre sentation, patient was found to have a hemoglobin of 6.2 and potassium of 5.4. Nephrology was consulted for further management. Patient underwent hemodialysis and was transfused 2 units packed RBCs. Patient was found to have a creatinine of 13.0. Patient has been counseled at length about the importance of being compliant with hemodialysis in order to avoid premature . Patient expresses understanding. Repeat BMP revealed potassium of 6.5. The patient underwent a second session of hemodialysis on 04/22/2021. Afterwards, the patient will be discharged home. Follow up with: PRIMARY CAREMD [Primary Care Provider] - 3-5 Days
[2021-04-22 17:36] VITALS: BP 182/71
== END 2021-04-22 15:42 | disposition home or self-care (01) ==
LOC: ED 16:03 → INTOOBSV 04-22 00:32 → 3A 04-22 00:32
PROVIDERS: ADMIT Hospitalist; ATTEND Student in an Organized Health Care Education/Training Program
DX: E87.5 Hyperkalemia (principal); I13.2 Hypertensive heart and chronic kidney disease with heart failure and with stage 5 chronic kidney disease, or end stage renal disease; I50.9 Heart failure, unspecified; N18.6 End stage renal disease; E11.22 Type 2 diabetes mellitus with diabetic chronic kidney disease; D63.1 Anemia in chronic kidney disease; E83.51 Hypocalcemia; R06.02 Shortness of breath; Z99.2 Dependence on renal dialysis; Z79.899 Other long term (current) drug therapy; Z98.890 Other specified postprocedural states
CPT/HCPCS: 36415; 36430; 71045; 80048; 80053; 80061; 82550; 82553; 82962; 84484; 85014; 85018; 85025; 86850; 86900; 86901; 86920; 93005; 93010; 94640; 96374; 99285; G0257; G0378; J1940; J7040; P9016

== ENCOUNTER 2021-05-02 21:16 | Inpatient (IN) | payer MEDICARE ==
--- NOTE | 2021-05-02 22:55 | XRay Report ---
CHEST 1 VIEW INDICATION / CLINICAL INFORMATION: esrd dyspnea. COMPARISON: Chest x-ray 04/21/2021 FINDINGS: SUPPORT DEVICES: Right-sided IJ hemodialysis catheter terminates within the superior vena cava. HEART / MEDIASTINUM: Mild cardiomegaly. Mild prominence of central vasculature. LUNGS / PLEURA: Beam attenuation within the lower chest. Minimal bibasilar opacities unchanged. Upper lungs remain clear. No pneumothorax. ADDITIONAL FINDINGS: No significant additional findings. IMPRESSION: 1. Minimal bibasilar lung opacities differential considerations to include artifact of beam attenuati on, atelectasis, and edema. Little overall change in the chest. Signer Name: Denis Rivera II, MD Signed: 05/02/2021 10:50 PM Workstation Name: [id number]
--- NOTE | 2021-05-02 23:07 | Emergency Department Report ---
ED Shortness of Breath HPI - General Chief Complaint: Dyspnea/Respdistress Stated Complaint: BOWEN/NEEDING DIALYSIS Time Seen by Provider: 05/02/21 22:14 Source: EMS Mode of arrival: Stretcher Limitations: No Limitations - History of Present Illness Initial Comments: Complaint: "Dialysis, and having a hard time breathing." HPI: This is a 60-year-old female with history of end-stage renal disease requiring hemodialysis, systolic heart failure, hypertension tension, dyslipidemia, blindness, anemia chronic disease, diabetes mellitus who presents with shortness of breath and request for dialysis. I have seen Mrs. Orta on 2 previous occasions recently. She is concerned that dialysis will be harmful to her health. Her relative as a complication of renal disease. Consequently she has been hesitant to be consistent with dialysis therapy. She does not have a dialysis home or personal internet network specialist at this time. She was last dialyzed on April 22 while admitted to this hospital. She denies fever, cough, chest pain, abdominal pain. MD Complaint: shortness of breath -: Gradual, days(s) (Several days) Severity: moderate Consistency: constant Improves With: oxygen Worsens With: nothing Known History Of: other (ESRD) Associated Symptoms: denies other symptoms - Related Data Home Medications Medication Instructions Recorded Confirmed Last Taken Atorvastatin [Lipitor] 40 mg PO QHS 02/03/21 04/04/21 04/03/21 glipiZIDE [Glucotrol] 10 mg PO QDAY 02/03/21 04/04/21 04/03/21 Previous Rx's Medication Instructions Recorded Last Taken Type Sodium Bicarbonate 1,300 mg PO TID 30 Days #180 tablet 02/03/21 04/03/21 Rx amLODIPine 10 mg PO DAILY #30 tablet 02/26/21 04/03/21 Rx carvediloL [Coreg] 12.5 mg PO BID #60 tablet 02/26/21 04/03/21 Rx calcitrioL [Rocaltrol] 0.5 mcg PO QDAY 30 Days #30 capsule 03/07/21 04/03/21 Rx Sevelamer Carbonate [Renvela] 800 mg PO AC #90 tablet 03/13/21 04/03/21 Rx Loperamide [Imodium] 2 mg PO Q6H PRN #30 capsule 03/27/21 04/03/21 Rx Allergies Allergy/AdvReac Type Severity Reaction Status Date / Time ibuprofen AdvReac Unknown Verified 05/02/21 21:21 ED Review of Systems ROS: Stated complaint: BOWEN/NEEDING DIALYSIS Other details as noted in HPI Comment: All other systems reviewed and negative Constitutional: denies: chills, fever, malaise Respiratory: shortness of breath. denies: cough Cardiovascular: denies: chest pain Gastrointestinal: denies: abdominal pain, nausea, vomiting Musculoskeletal: denies: back pain ED Past Medical Hx - Past Medical History Previous Medical History?: Yes Hx Hypertension: Yes Hx Congestive Heart Failure: Yes Hx Diabetes: Yes Hx Renal Disease: Yes (On dialysis (-W-)) Hx Asthma: No Hx COPD: No Additional medical history: BLIND - Surgical History Past Surgical History?: Yes Additional Surgical History: Toe amputation - Family History Family history: hypertension, renal disease - Social History Smoking Status: Never Smoker Substance Use Type: None - Medications Home Medications: Home Medications Medication Instructions Recorded Confirmed Last Taken Type Atorvastatin [Lipitor] 40 mg PO QHS 02/03/21 04/04/21 04/03/21 History Sodium Bicarbonate 1,300 mg PO TID 30 Days #180 tablet 02/03/21 04/04/21 04/03/21 Rx glipiZIDE [Glucotrol] 10 mg PO QDAY 02/03/21 04/04/21 04/03/21 History amLODIPine 10 mg PO DAILY #30 tablet 02/26/21 04/04/21 04/03/21 Rx carvediloL [Coreg] 12.5 mg PO BID #60 tablet 02/26/21 04/04/21 04/03/21 Rx calcitrioL [Rocaltrol] 0.5 mcg PO QDAY 30 Days #30 capsule 03/07/21 04/04/21 04/03/21 Rx Sevelamer Carbonate [Renvela] 800 mg PO AC #90 tablet 03/13/21 04/04/21 04/03/21 Rx Loperamide [Imodium] 2 mg PO Q6H PRN #30 capsule 03/27/21 04/04/21 04/03/21 Rx ED Physical Exam - General Limitations: No Limitations General appearance: alert, other (mild work of breathing ) - Head Head exam: Present: atraumatic, normocephalic - Eye Eye exam: Absent: scleral icterus, conjunctival injection - ENT ENT exam: Present: mucous membranes moist - Neck Neck exam: Present: normal inspection, full ROM - Respiratory Respiratory exam: Present: decreased breath sounds. Absent: wheezes, rales, rhonchi - Cardiovascular Cardiovascular Exam: Present: regular rate, normal rhythm, normal heart sounds. Absent: systolic murmur, diastolic murmur, rubs, gallop - GI/Abdominal GI/Abdominal exam: Present: soft, normal bowel sounds. Absent: distended, tenderness, guarding, rebound - Extremities Exam Extremities exam: Present: normal inspection. Absent: pedal edema - Neurological Exam Neurological exam: Present: alert, oriented X3 - Psychiatric Psychiatric exam: Present: normal affect, normal mood - Skin Skin exam: Present: warm, dry, intact, normal color. Absent: rash ED Course Vital Signs 05/02/21 05/02/21 21:18 21:38 Temperature 98.4 F Pulse Rate 83 Respiratory 18 Rate Blood Pressure 171/84 [Left] O2 Sat by Pulse 100 99 Oximetry ED Medical Decision Making - Lab Data Result diagrams: 05/02/21 22:48 05/02/21 22:48 - EKG Data -: EKG Interpreted by Me EKG shows normal: sinus rhythm Rate: normal - EKG Data Interpretation: nonspecific ST-T wave marlene 05/02/21 23:21 EKG obtained 2310 EKG interpreted by me NSR rate 80 bpm left axis deviation normal intervals no ST elevation normal amplitude T waves - Radiology Data Radiology results: report reviewed Patient Name: MIRTHA ORTA Gender: Female Date of : 1960 Referring Provider: TAMRA GUNDERSON Organization: [facility] Accession Number: [id number] Requested Date: May 02, 2021 22:26 Report Status: Final Requested Procedure: 1 Procedure Description: XR chest 1V ap Modality: XR Findings Reporting MD: Denis Rivera Dictation Time: May 02, 2021 21:50 Lumber Handler: Not available Optician Apprentice Date: CHEST 1 VIEW INDICATION / CLINICAL INFORMATION: esrd dyspnea. COMPARISON: Chest x-ray 04/21/2021 FINDINGS: SUPPORT DEVICES: Right-sided IJ hemodialysis catheter terminates within the superior vena cava. HEART / MEDIASTINUM: Mild cardiomegaly. Mild prominence of central vasculature. LUNGS / PLEURA: Beam attenuation within the lower chest. Minimal bibasilar opacities unchanged. Upper lungs remain clear. No pneumothorax. ADDITIONAL FINDINGS: No significant additional findings. IMPRESSION: 1. Minimal bibasilar lung opacities differential considerations to include artifact of beam attenuation, atelectasis, and edema. Little overall change in the chest. Signer Name: Denis Rivera II, MD Signed: 05/02/2021 9:50 PM Workstation Name: [id number] - Medical Decision Making Ms. Orta presents with acute uremic complications of pulmonary edema, hyperkalemia, metabolic acidosis due to noncompliance with hemodialysis therapy. No current evidence of infection or ACS. Work-up revealed pulmonary edema on chest radiograph as well as hyperkalemia 6.4 metabolic acidosis bicarb 17 Dr[address] Whitehead who recommended Kayexalate. I have ordered additionally calcium, dextrose insulin, sodium bicarbonate. Patient admitted to telemetry in fair condition. Critical care attestation.: If time is entered above; I have spent that time in minutes in the direct care of this critically ill patient, excluding procedure time. ED Disposition Clinical Impression: Fluid overload, Pulmonary edema, End-stage renal disease on hemodialysis, Noncompliance, Hyperkalemia Disposition: 09 ADMITTED INPATIENT Is pt being admited?: Yes Does the pt Need Aspirin: No Condition: Fair Instructions: Pulmonary Edema (ED)
[2021-05-02 23:14] LABS: Basophils # (Auto) 0.1 K/mm3 (0.0-0.1); Basophils % (Auto) 0.8 % (0.0-1.8); Eosinophils # (Auto) 0.3 K/mm3 (0.0-0.4); Eosinophils % (Auto) 3.3 % (0.0-4.3); Hematocrit 28.7 % (30.3-42.9); Hemoglobin 9.2 gm/dl (10.1-14.3); Lymphocytes # (Auto) 1.3 K/mm3 (1.2-5.4); Lymphocytes % (Auto) 13.1 % (13.4-35.0); Mean Corpuscular HGB Conc 32 % (30-34); Mean Corpuscular Volume 94 fl (79-97); Monocytes # (Auto) 1.3 K/mm3 (0.0-0.8); Monocytes % (Auto) 12.9 % (0.0-7.3); Platelet Count 202 K/mm3 (140-440); Red Blood Count 3.06 M/mm3 (3.65-5.03); Red Cell Distribution Width 15.3 % (13.2-15.2)
[2021-05-02 23:27] LABS: Calcium 7.3 mg/dL (8.4-10.2)
[2021-05-03] MEDS ORDERED: CALCIUM GLUCONATE 1,000 MG in SODIUM CHLORIDE 0.9% 100 ML IV ONE (00:02)
[2021-05-03] MEDS ORDERED: D10W 250 ML IV SOLN IV STA (00:03)
[2021-05-03] MEDS ORDERED: SODIUM POLYSTYRENE 15 GM/60 ML ORAL LIQD PO STA (00:10)
[2021-05-03] MEDS: SODIUM BICARB 8.4% 50 MEQ/50 ML SYRINGE IV ONE ×2 (00:44→03:56)
[2021-05-03] MEDS: INSULIN REGULAR, HUMAN 100 UNITS/1 ML IV STA ×2 (00:45→03:56)
[2021-05-03] MEDS ORDERED: MORPHINE 4 MG/1 ML INJ IV PRN (00:51)
[2021-05-03] MEDS ORDERED: DEXTROSE 50% IN WATER (25GM) 50 ML SYRINGE IV PRN (00:51)
[2021-05-03] MEDS ORDERED: ONDANSETRON 4 MG/2 ML INJ IV PRN (00:51)
[2021-05-03] MEDS ORDERED: MORPHINE 2 MG/1 ML INJ IV PRN (00:51)
[2021-05-03] MEDS ORDERED: ACETAMINOPHEN 325 MG TAB PO PRN (00:51)
[2021-05-03] MEDS ORDERED: MAGNESIUM HYDROXIDE (MOM) ORAL LIQD UDC PO PRN (00:51)
[2021-05-03] MEDS: CALC GLUCONATE 1GM/NS 100 ML 1 GM/100 ML BAG IV ONE ×2 (00:52→03:59)
[2021-05-03] MEDS: DEXTROSE 10% *Hypoglycemia IV ONE ×2 (00:53→03:57)
[2021-05-03] MEDS ORDERED: DEXTROSE 10% *Hypoglycemia IV PRN (01:05)
--- NOTE | 2021-05-03 01:06 | History and Physical Report ---
History of Present Illness Date of examination: 05/03/21 Date of admission: 05/03/2021 Chief complaint: Shortness of breath End-stage renal disease requesting dialysis History of present illness: 10-year-old -[place] Islander female with known history of congestive heart failure, hypertension, dyslipidemia, anemia of chronic disease, diabetes mellitus, end-stage renal disease on hemodialysis presenting in the emergency room today complaining of shortness of breath and requesting dialysis. Patient has been known not to be quite compliant with dialysis. She does not have a school lunch manager and she has not been following up at any dialysis center. She was last dialyzed on April 22, 2021. Patient denies any chest pain, no nausea vomiting, no headache or dizziness, no diaphoresis. She denies any sick contacts and no recent travel. Denies any contact with anyone with COVID-19. Work-up in the emergency room today, significant findings were that of hyperkalemia of 6.4, BUN of 56 and creatinine of 13.6. Hemoglobin of 9.2 and creatinine of 20.7. Chest x-ray significant for minimal bibasilar lung opacities which could be atelectasis and or edema. Patient was given Kayexalate, insulin and glucose, calcium gluconate and sodium bicarb for the hyperkalemia. Education Diagnostician on-call was consulted by the ER physician for possible dialysis. Past History Past Medical History: anemia, diabetes, dialysis, ESRD, heart failure, hypertension, hyperlipidemia, other (Blindness) Past Surgical History: Other (Toe amputation) Social history: no significant social history Family history: no significant family history Medications and Allergies Allergies Allergy/AdvReac Type Severity Reaction Status Date / Time ibuprofen AdvReac Unknown Verified 05/02/21 21:21 Home Medications Medication Instructions Recorded Confirmed Last Taken Type Atorvastatin [Lipitor] 40 mg PO QHS 02/03/21 04/04/21 04/03/21 History Sodium Bicarbonate 1,300 mg PO TID 30 Days #180 tablet 02/03/21 04/04/21 04/03/21 Rx glipiZIDE [Glucotrol] 10 mg PO QDAY 02/03/21 04/04/21 04/03/21 History amLODIPine 10 mg PO DAILY #30 tablet 02/26/21 04/04/21 04/03/21 Rx carvediloL [Coreg] 12.5 mg PO BID #60 tablet 02/26/21 04/04/21 04/03/21 Rx calcitrioL [Rocaltrol] 0.5 mcg PO QDAY 30 Days #30 capsule 03/07/21 04/04/21 04/03/21 Rx Sevelamer Carbonate [Renvela] 800 mg PO AC #90 tablet 03/13/21 04/04/21 04/03/21 Rx Loperamide [Imodium] 2 mg PO Q6H PRN #30 capsule 03/27/21 04/04/21 04/03/21 Rx Active Meds: Active Medications Acetaminophen (Acetaminophen 325 Mg Tab) 650 mg PO Q4H PRN PRN Reason: Pain MILD(1-3)/Fever >100.5/BU[place]LEY Dextrose (Dextrose 10% *Hypoglycemia) 200 ml IV ONCE ONE Stop: 05/03/21 01:04 Last Admin: 05/03/21 00:53 Dose: 200 ml Dextrose (Dextrose 50% In Water (25gm) 50 Ml Syringe) 50 ml IV Q30MIN PRN; Protocol PRN Reason: Hypoglycemia Dextrose (Dextrose 50% In Water (25gm) 50 Ml Syringe) 50 ml IV Q30MIN PRN; Protocol PRN Reason: Hypoglycemia Heparin Sodium (Porcine) (Heparin 5,000 Unit/1 Ml Vial) 5,000 unit SUB-Q Q8HR PEDRO CALC GLUCONATE 1GM/NS 100 ML (Calcium Gluonate/Ns 1,000mg/100ml) 1 gm in 100 mls @ 375 mls/hr IV ONCE ONE Stop: 05/03/21 01:45 Last Admin: 05/03/21 00:52 Dose: 375 mls/hr Insulin Human Lispro (Insulin Lispro 100 Unit/Ml) 0 unit SUB-Q ACHS PEDRO; Protocol Insulin Human Lispro (Insulin Lispro 100 Unit/Ml) 0 unit SUB-Q ACHS PEDRO; Protocol Magnesium Hydroxide (Magnesium Hydroxide (Mom) Oral Liqd Udc) 30 ml PO Q4H PRN PRN Reason: Constipation Morphine Sulfate (Morphine 2 Mg/1 Ml Inj) 2 mg IV Q4H PRN PRN Reason: Pain, Moderate (4-6) Morphine Sulfate (Morphine 4 Mg/1 Ml Inj) 4 mg IV Q4H PRN PRN Reason: Pain , Severe (7-10) Ondansetron HCl (Ondansetron 4 Mg/2 Ml Inj) 4 mg IV Q8H PRN PRN Reason: Nausea And Vomiting Sodium Chloride (Sodium Chloride 0.9% 10 Ml Flush Syringe) 10 ml IV BID PEDRO Sodium Chloride (Sodium Chloride 0.9% 10 Ml Flush Syringe) 10 ml IV PRN PRN PRN Reason: LINE FLUSH Review of Systems Constitutional: no fever, no chills Ears, nose, mouth and throat: no nasal congestion, no sore throat Cardiovascular: no chest pain, no palpitations Respiratory: shortness of breath, no cough Gastrointestinal: no nausea, no vomiting, no diarrhea Genitourinary Female: no pelvic pain, no flank pain, no dysuria Musculoskeletal: no neck pain, no low back pain Integumentary: no rash, no pruritis Neurological: no headaches, no confusion Psychiatric: no anxiety, no depression Endocrine: no polydipsia, no polyuria, no nocturia Exam - Constitutional Vitals: Temp Pulse Resp BP Pulse Ox 98.4 F 83 18 171/84 99 05/02/21 21:18 05/02/21 21:18 05/02/21 21:18 05/02/21 21:18 05/02/21 21:38 General appearance: Present: no acute distress, well-nourished - EENT Eyes: Present: PERRL, EOM intact. Absent: scleral icterus ENT: hearing intact, clear oral mucosa, dentition normal - Neck Neck: Present: supple, normal ROM - Respiratory Respiratory effort: normal Respiratory: bilateral: rales - Cardiovascular Rhythm: other (Vas-Cath on right anterior chest wall) Heart Sounds: Present: S1 & S2, systolic murmur. Absent: gallop, diastolic murmur, rub, click - Extremities Extremities: no ischemia, pulses intact, pulses symmetrical, normal temperature, normal color, Full ROM Extremity abnormal: edema (Trace bilateral ankle edema) Peripheral Pulses: within normal limits - Abdominal General gastrointestinal: Present: soft, non-tender, non-distended, normal bowel sounds. Absent: mass - Integumentary Integumentary: Present: clear, warm, dry, normal turgor. Absent: rash - Musculoskeletal Musculoskeletal: strength equal bilaterally - Psychiatric Psychiatric: appropriate mood/affect, intact judgment & insight, memory intact, cooperative - Neurologic Neurologic: CNII-XII intact, no focal deficits, moves all extremities Results - Labs CBC & Chem 7: 05/02/21 22:48 05/02/21 22:48 Labs: Abnormal lab results 05/02/21 05/02/21 Range/Units 22:48 22:48 RBC 3.06 L (3.65-5.03) M/mm3 Hgb 9.2 L (10.1-14.3) gm/dl Hct 28.7 L (30.3-42.9) % RDW 15.3 H (13.2-15.2) % Lymph % (Auto) 13.1 L (13.4-35.0) % [place] % (Auto) 12.9 H (0.0-7.3) % [place] # (Auto) 1.3 H (0.0-0.8) K/mm3 Potassium 6.4 H* (3.6-5.0) mmol/L Chloride 108.7 H (98-107) mmol/L Carbon Dioxide 17 L (22-30) mmol/L BUN 56 H (7-17) mg/dL Creatinine 13.3 H (0.6-1.2) mg/dL Calcium 7.3 L (8.4-10.2) mg/dL Assessment and Plan - Patient Problems (1) ESRD needing dialysis Current Visit: No Status: Chronic Plan to address problem: Consult placed to school lunch manager for dialysis. Patient is known not to be compliant with dialysis. (2) Hyperkalemia Current Visit: No Status: Acute Plan to address problem: We will monitor potassium level. Will also monitor EKG. Patient has been given sodium bicarb, insulin and glucose and Kayexalate in the emergency room. (3) Hypertension Current Visit: No Status: Chronic Qualifiers: Hypertension type: primary hypertension Qualified Code(s): I10 - Essential (primary) hypertension Plan to address problem: We will resume routine home medications and monitor vital signs closely. (4) T2DM (type 2 diabetes mellitus) Current Visit: No Status: Chronic Qualifiers: Diabetes mellitus automotive professional insulin use: without automotive professional use Chronic kidney disease stage: on chronic dialysis Plan to address problem: Patient placed on sliding scale insulin. We will monitor Accu-Cheks closely. (5) DVT prophylaxis Current Visit: No Status: Acute Plan to address problem: Patient placed on subcutaneous heparin. (6) Full code status Current Visit: No Status: Acute Plan to address problem: Patient is full code.
[2021-05-03] MEDS: D10W 250 ML IV SOLN IV STA ×2 (03:11→04:00)
[2021-05-03] MEDS ORDERED: DEXTROSE 10% *Hypoglycemia IV ONE (04:00)
[2021-05-03] MEDS: HEPARIN 5,000 UNIT/1 ML VIAL SUB-Q SCH ×2 (06:30→13:56)
[2021-05-03] MEDS ORDERED: INSULIN LISPRO 100 UNIT/ML SUB-Q SCH (07:30)
[2021-05-03] MEDS: INSULIN LISPRO 100 UNIT/ML SUB-Q SCH ×2 (07:30→11:20)
--- NOTE | 2021-05-03 10:22 | Consultation ---
History of Present Illness - Reason for Consult end stage renal disease (60yr F with h/o HTN, DM, Blind, ESRD started HD last January but does not have a Dialysis Clinic or An/Ssn 2 4 Operator. Pt's dialysis has been erratic for unclear reasons. Her last HD was >2wks ago in this facility via the ED) Past History Past Medical History: anemia, diabetes, dialysis, ESRD, heart failure, hypertension, hyperlipidemia, other (Blindness) Past Surgical History: Other (Toe amputation) Social history: no significant social history Family history: no significant family history Medications and Allergies Allergies Allergy/AdvReac Type Severity Reaction Status Date / Time ibuprofen AdvReac Unknown Verified 05/02/21 21:21 Home Medications Medication Instructions Recorded Confirmed Last Taken Type Atorvastatin [Lipitor] 40 mg PO QHS 02/03/21 05/03/21 05/02/21 10:00 History Sodium Bicarbonate 1,300 mg PO TID 30 Days #180 tablet 02/03/21 05/03/21 05/02/21 10:00 Rx glipiZIDE [Glucotrol] 10 mg PO QDAY 02/03/21 05/03/21 05/02/21 History amLODIPine 10 mg PO DAILY #30 tablet 02/26/21 05/03/21 05/02/21 10:00 Rx carvediloL [Coreg] 12.5 mg PO BID #60 tablet 02/26/21 05/03/21 05/02/21 10:00 Rx calcitrioL [Rocaltrol] 0.5 mcg PO QDAY 30 Days #30 capsule 03/07/21 05/03/21 05/02/21 10:00 Rx Sevelamer Carbonate [Renvela] 800 mg PO AC #90 tablet 03/13/21 05/03/21 05/02/21 10:00 Rx Loperamide [Imodium] 2 mg PO Q6H PRN #30 capsule 03/27/21 05/03/21 05/02/21 10:00 Rx Active Meds: Active Medications Acetaminophen (Acetaminophen 325 Mg Tab) 650 mg PO Q4H PRN PRN Reason: Pain MILD(1-3)/Fever >100.5/BUCKLEY Dextrose (Dextrose 10% *Hypoglycemia) 0 ml IV DIRECT PRN; Protocol PRN Reason: Hypoglycemia Heparin Sodium (Porcine) (Heparin 5,000 Unit/1 Ml Vial) 5,000 unit SUB-Q Q8HR PEDRO Last Admin: 05/03/21 06:30 Dose: 5,000 unit Insulin Human Lispro (Insulin Lispro 100 Unit/Ml) 0 unit SUB-Q ACHS PEDRO; Pr otocol Last Admin: 05/03/21 07:30 Dose: 2 unit Magnesium Hydroxide (Magnesium Hydroxide (Mom) Oral Liqd Udc) 30 ml PO Q4H PRN PRN Reason: Constipation Morphine Sulfate (Morphine 2 Mg/1 Ml Inj) 2 mg IV Q4H PRN PRN Reason: Pain, Moderate (4-6) Morphine Sulfate (Morphine 4 Mg/1 Ml Inj) 4 mg IV Q4H PRN PRN Reason: Pain , Severe (7-10) Ondansetron HCl (Ondansetron 4 Mg/2 Ml Inj) 4 mg IV Q8H PRN PRN Reason: Nausea And Vomiting Sodium Chloride (Sodium Chloride 0.9% 10 Ml Flush Syringe) 10 ml IV BID PEDRO Sodium Chloride (Sodium Chloride 0.9% 10 Ml Flush Syringe) 10 ml IV PRN PRN PRN Reason: LINE FLUSH Review of Systems Constitutional: no fever, no chills Eyes: bilateral: loss of vision (Blind) Ears, nose, mouth and throat: no nasal congestion, no sore throat Breasts: deferred Cardiovascular: no chest pain, no palpitations, no leg edema Respiratory: no cough, no shortness of breath, no wheezing Gastrointestinal: no nausea, no vomiting, no diarrhea, no constipation Exam - Vital Signs Vital signs: Vital Signs Temp Pulse Resp BP Pulse Ox 98.4 F 83 18 171/84 100 05/02/21 21:18 05/02/21 21:18 05/02/21 21:18 05/02/21 21:18 05/02/21 21:18 - General Appearance General appearance: other (Awake & verbally responsive) EENT: PERRL, hearing intact Neck: Present: neck supple Respiratory: Rales Heart: regular, S1S2 Gastrointestinal: Present: normal Neurologic: no focal deficit Psychiatric: mood/affect appropriate Additional exam: Dialysis Access - [facility] Results - Lab Results 05/02/21 22:48 05/02/21 22:48 Most recent lab results Calcium 7.3 mg/dL (8.4-10.2) L 05/02/21 22:48 - Image Kidney/bladder ultrasound: pending, report reviewed, image reviewed, other Assessment and Plan ESRD - HD today & through admission HTN - Review meds & adjust as necessary Electrolyte Imbalance - Hyperkalemia, A-G Metabolic Acidosis. Adjust baths to correct on HD Disposition - F/u outpt HD placement
--- NOTE | 2021-05-03 10:43 | Discharge Summary ---
Providers - Providers Date of Admission: 05/03/21 00:51 Attending physician: JERICHO ORTIZ MD 05/03/21 00:20 Consult to Physician [CONS] Stat Comment: Consulting Provider: WERO WALKER Physician Instructions: Reason For Exam: esrd pulmonary edema hyperkalemia 05/03/21 00:51 Consult to Dietitian/Nutrition [CONS] Routine Physician Instructions: Reason For Exam: Reason for Consult: Diet education 05/03/21 10:39 Consult to Case Management [CONS] Routine Services Needed at Discharge: Other Additional Physician Instructions: Patient does not have outpatient HD center Primary care physician: CHAVEZ QUINONES Hospitalization Condition: Fair Exam - Constitutional Vitals: Temp Pulse Resp BP Pulse Ox 97.5 F L 71 18 134/36 100 05/03/21 03:51 05/03/21 03:51 05/03/21 03:51 05/03/21 03:51 05/03/21 05:03 Plan Care Plan Goals: It is important to go to dialysis every other day (3 times per week). Your kidneys do not function normally and dialysis test job of your kidneys. If you are not compliant you can from kidney failure. You can go to [place] or the nearest ED to you for dialysis until an outpatient dialysis center is solidified for you. Follow up with: CHAVEZ QUINONES MD [Primary Care Provider] - 7 Days
[2021-05-03] MEDS ORDERED: EPOETIN ALFA-EPBX 10,000 UNIT/1 ML VIAL IV PRN (10:44)
[2021-05-03] MEDS ORDERED: SODIUM CHLORIDE 0.9% 100 ML IV PRN (10:44)
--- NOTE | 2021-05-03 10:45 | Event Note ---
Date: 05/03/21 Patient was seen and examined at the bedside. She currently does not have an outpatient HD chair since initiating HD back in January. Uses a permacath as access. Patient last dialyzed 04/22. Counseled about the importance of dialysis compliance. We discussed the possible ways for her to obtain dialysis until a chair is found for her. Patient voiced understanding. Patient would prefer to leave today after dialysis and will either go to [place] 3 times a week for dialysis or return to the ED in the future.
[2021-05-03 19:23] VITALS: BP 176/95
--- NOTE | 2021-05-04 11:49 | Electrocardiograph Report ---
[facility] Test Date: 2021-05-02 Test Time: 23:10:11 Pat Name: MIRTHA ORTA Department: Room: A383 1 Gender: F Telemetry Monitor: ZAINAB : 1960 Requested By: TAMRA GUNDERSON Order Number: [id number] Reading MD: Willam Perez Measurements Intervals Only Rate: 80 P: 46 NC: 195 QRS: -42 QRSD: 81 T: 58 QT: 407 QTc: 471 Interpretive Statements Sinus rhythm Left anterior fascicular block Low voltage, precordial leads Consider anterior infarct Compared to ECG 04/21/2021 18:16:57 Left anterior fascicular block now present Left-axis deviation no longer present Myocardial infarct finding still present Electronically Signed On 05-04-2021 11:49:13 EST by Willam Perez
== END 2021-05-03 16:45 | disposition home or self-care (01) | DRG 640 ==
LOC: ED 21:16 → 3A 05-03 00:51
PROVIDERS: ADMIT Internal Medicine Geriatric Medicine; ATTEND Student in an Organized Health Care Education/Training Program
PROC: 5A1D70Z Performance of Urinary Filtration, Intermittent, Less than 6 Hours Per Day (ICD-10-PCS; principal; 2021-05-03)
DX: E87.5 Hyperkalemia (principal); N18.6 End stage renal disease; I50.20 Unspecified systolic (congestive) heart failure; I13.2 Hypertensive heart and chronic kidney disease with heart failure and with stage 5 chronic kidney disease, or end stage renal disease; Z99.2 Dependence on renal dialysis; E78.5 Hyperlipidemia, unspecified; E11.22 Type 2 diabetes mellitus with diabetic chronic kidney disease; Z91.19 Patient's noncompliance with other medical treatment and regimen; E87.2 Acidosis; H54.7 Unspecified visual loss; Z82.49 Family history of ischemic heart disease and other diseases of the circulatory system; Z84.1 Family history of disorders of kidney and ureter; Z89.429 Acquired absence of other toe(s), unspecified side; Z88.8 Allergy status to other drugs, medicaments and biological substances
CPT/HCPCS: 36415; 71045; 80048; 82962; 85025; 93005; 93010; G0378; J3490; Q9967; J0610; J1644; J1815

== ENCOUNTER 2021-05-09 09:25 | Emergency (ER) | payer MEDICARE ==
--- NOTE | 2021-05-09 09:38 | Emergency Department Report ---
ED General Adult HPI - General Chief complaint: Medical Clearance Stated complaint: Missed Dialysis x1 week Time Seen by Provider: 05/09/21 09:34 Source: EMS Mode of arrival: Stretcher Limitations: No Limitations - History of Present Illness Initial comments: Patient presents by ambulance requesting dialysis. She has been dialyzed previously. She does not have a chair assigned. She has been waiting since December to get a dialysis chair assigned so she can go to a regular dialysis appointment. This is still not been completed. Patient is here believing that she needs to be dialyzed. She states that she feels weak. She is not having chest pain or shortness of breath currently. She states when she exerts herself, she does begin to get dyspneic. There is no vomiting or diarrhea. She has no chest pain or back pain. There is no history of recent travel or trauma. Severity scale (0 -10): 0 - Related Data Home Medications Medication Instructions Recorded Confirmed Last Taken Atorvastatin [Lipitor] 40 mg PO QHS 02/03/21 05/03/21 05/02/21 10:00 glipiZIDE [Glucotrol] 10 mg PO QDAY 02/03/21 05/03/21 05/02/21 Previous Rx's Medication Instructions Recorded Last Taken Type Sodium Bicarbonate 1,300 mg PO TID 30 Days #180 tablet 02/03/21 05/02/21 10:00 Rx amLODIPine 10 mg PO DAILY #30 tablet 02/26/21 05/02/21 10:00 Rx carvediloL [Coreg] 12.5 mg PO BID #60 tablet 02/26/21 05/02/21 10:00 Rx calcitrioL [Rocaltrol] 0.5 mcg PO QDAY 30 Days #30 capsule 03/07/21 05/02/21 10:00 Rx Sevelamer Carbonate [Renvela] 800 mg PO AC #90 tablet 03/13/21 05/02/21 10:00 Rx Loperamide [Imodium] 2 mg PO Q6H PRN #30 capsule 03/27/21 05/02/21 10:00 Rx Allergies Allergy/AdvReac Type Severity Reaction Status Date / Time ibuprofen AdvReac Unknown Verified 05/02/21 21:21 ED Review of Systems ROS: Stated complaint: Missed Dialysis x1 week Other details as noted in HPI Comment: All other systems reviewed and negative Constitutional: denies: fever Eyes: denies: vision change ENT: denies: ear pain Respiratory: denies: cough Cardiovascular: denies: chest pain Endocrine: denies: unexplained weight loss Gastrointestinal: denies: abdominal pain Genitourinary: as per HPI Musculoskeletal: denies: back pain Skin: denies: rash Neurological: denies: headache Hematological/Lymphatic: denies: easy bruising ED Past Medical Hx - Past Medical History Hx Hypertension: Yes Hx Congestive Heart Failure: Yes Hx Diabetes: Yes Hx Renal Disease: Yes (On dialysis (--)) Hx Asthma: No Hx COPD: No Hx HIV: No Additional medical history: BLIND - Surgical History Additional Surgical History: Toe amputation - Family History Family history: hypertension - Social History Smoking Status: Never Smoker - Medications Home Medications: Home Medications Medication Instructions Recorded Confirmed Last Taken Type Atorvastatin [Lipitor] 40 mg PO QHS 02/03/21 05/03/21 05/02/21 10:00 History Sodium Bicarbonate 1,300 mg PO TID 30 Days #180 tablet 02/03/21 05/03/21 05/02/21 10:00 Rx glipiZIDE [Glucotrol] 10 mg PO QDAY 02/03/21 05/03/21 05/02/21 History amLODIPine 10 mg PO DAILY #30 tablet 02/26/21 05/03/21 05/02/21 10:00 Rx carvediloL [Coreg] 12.5 mg PO BID #60 tablet 02/26/21 05/03/21 05/02/21 10:00 Rx calcitrioL [Rocaltrol] 0.5 mcg PO QDAY 30 Days #30 capsule 03/07/21 05/03/21 05/02/21 10:00 Rx Sevelamer Carbonate [Renvela] 800 mg PO AC #90 tablet 03/13/21 05/03/21 05/02/21 10:00 Rx Loperamide [Imodium] 2 mg PO Q6H PRN #30 capsule 03/27/21 05/03/21 05/02/21 10:00 Rx ED Physical Exam - General Limitations: No Limitations, Other (Pulse ox noted and normal) General appearance: alert, in no apparent distress - Head Head exam: Present: atraumatic, normocephalic - Eye Eye exam: Present: normal appearance, PERRL, EOMI - ENT ENT exam: Present: normal orophraynx, normal external ear exam - Neck Neck exam: Present: normal inspection. Absent: meningismus - Respiratory Respiratory exam: Present: normal lung sounds bilaterally, other (Access c atheter in the anterior chest). Absent: respiratory distress - Cardiovascular Cardiovascular Exam: Present: regular rate, normal rhythm, JVD - GI/Abdominal GI/Abdominal exam: Present: soft. Absent: distended, tenderness - Extremities Exam Extremities exam: Present: normal capillary refill - Back Exam Back exam: Absent: CVA tenderness (R), CVA tenderness (L) - Neurological Exam Neurological exam: Present: alert, oriented X3, CN II-XII intact. Absent: motor sensory deficit - Psychiatric Psychiatric exam: Present: normal affect, normal mood - Skin Skin exam: Present: warm, dry ED Course Vital Signs 05/09/21 05/09/21 05/09/21 09:27 09:36 10:09 Temperature 98.5 F Pulse Rate 74 81 Respiratory 16 22 Rate Blood Pressure 149/81 [Left] O2 Sat by Pulse 94 100 Oximetry - Reevaluation(s) Reevaluation #1: 05/09/21 09:30 EMS was met upon arrival. Labs were ordered. Old records noted. Reevaluation #2: 05/09/21 09:51 EKG was noted. Reevaluation #3: 05/09/21 12:17 Labs have been reviewed. Hyperkalemia has been treated. Case was discussed with the hospitalist to admit. Nephrology has been paged. ED Medical Decision Making - Lab Data Result diagrams: 05/09/21 10:28 05/09/21 10:28 - EKG Data -: EKG Interpreted by Me - EKG Data 05/09/21 09:51 0937-EKG shows normal sinus rhythm with a first-degree AV block. Rate is 78. GA interval was 229. QRS is normal at 82. QT corrected is normal at 4 and 68. Patient has poor R wave progression. There is no ST segment elevation suggestive of STEMI. There is T wave flattening in aVL. There is no other ST or T wave change noted. The first-degree AV block is new when compared to an EKG May 02, 2021. - Radiology Data Radiology results: report reviewed - Medical Decision Making Patient presents with end-stage renal disease requiring dialysis emergently. She is hyperkalemic. There is clinical evidence of volume overload. Creatinine has worsened significantly. Patient has been noncompliant. She is not actually excepted in any dialysis unit. Her only option is to come to the emergency department when she needs dialysis. This is what she has been doing because the dialysis unit will not accept her as a patient. Regardless, she does need to be admitted at this time. She does not appear to be toxic. Critical Care Time: Yes (45 minutes exclusive of all procedures) Critical care attestation.: If time is entered above; I have spent that time in minutes in the direct care of this critically ill patient, excluding procedure time. ED Disposition Clinical Impression: End-stage renal disease needing dialysis, Noncompliance, Hyperkalemia Disposition: 09 ADMITTED INPATIENT Is pt being admited?: Yes Condition: Stable
--- NOTE | 2021-05-09 10:17 | XRay Report ---
CHEST 2 VIEWS INDICATION: cp. COMPARISON: 05/02/2021 FINDINGS: Support devices: Dialysis catheter unchanged. Heart: Stable cardiomegaly. Lungs/Pleura: Small basilar effusions with associated volume loss. Mild edema. IMPRESSION: Mild changes of congestive failure. Signer Name: Marcello Bedoya MD Signed: 05/09/2021 10:13 AM Workstation Name: [id number]
[2021-05-09 11:30] LABS: Hemoglobin 9.4 gm/dl (10.1-14.3); Mean Corpuscular HGB Conc 33 % (30-34); Mean Corpuscular Volume 93 fl (79-97); Platelet Count 209 K/mm3 (140-440); Red Blood Count 3.12 M/mm3 (3.65-5.03); Red Cell Distribution Width 15.2 % (13.2-15.2)
[2021-05-09 11:41] LABS: Calcium 7.6 mg/dL (8.4-10.2)
[2021-05-09] MEDS ORDERED: INSULIN REGULAR, HUMAN 100 UNITS/1 ML IV ONE (12:10)
[2021-05-09] MEDS ORDERED: SODIUM BICARB 8.4% 50 MEQ/50 ML SYRINGE IV ONE (12:10)
[2021-05-09] MEDS ORDERED: CALCIUM GLUCONATE 1,000 MG in SODIUM CHLORIDE 0.9% 100 ML IV ONE (12:10)
[2021-05-09] MEDS ORDERED: DEXTROSE 10% *Hypoglycemia IV PRN (12:10)
[2021-05-09] MEDS ORDERED: SODIUM POLYSTYRENE 15 GM/60 ML ORAL LIQD PO ONE (12:10)
[2021-05-09] MEDS ORDERED: CALC GLUCONATE 1GM/NS 100 ML 1 GM/100 ML BAG IV ONE (13:00)
--- NOTE | 2021-05-09 17:10 | Consultation ---
History of Present Illness - Reason for Consult Consult date: 05/09/21 end stage renal disease, hyperkalemia Medications and Allergies Allergies Allergy/AdvReac Type Severity Reaction Status Date / Time ibuprofen AdvReac Unknown Verified 05/02/21 21:21 Home Medications Medication Instructions Recorded Confirmed Last Taken Type Atorvastatin [Lipitor] 40 mg PO QHS 02/03/21 05/03/21 05/02/21 10:00 History Sodium Bicarbonate 1,300 mg PO TID 30 Days #180 tablet 02/03/21 05/03/21 05/02/21 10:00 Rx glipiZIDE [Glucotrol] 10 mg PO QDAY 02/03/21 05/03/21 05/02/21 History amLODIPine 10 mg PO DAILY #30 tablet 02/26/21 05/03/21 05/02/21 10:00 Rx carvediloL [Coreg] 12.5 mg PO BID #60 tablet 02/26/21 05/03/21 05/02/21 10:00 Rx calcitrioL [Rocaltrol] 0.5 mcg PO QDAY 30 Days #30 capsule 03/07/21 05/03/21 05/02/21 10:00 Rx Sevelamer Carbonate [Renvela] 800 mg PO AC #90 tablet 03/13/21 05/03/21 05/02/21 10:00 Rx Loperamide [Imodium] 2 mg PO Q6H PRN #30 capsule 03/27/21 05/03/21 05/02/21 10:00 Rx Active Meds: Active Medications Dextrose (Dextrose 10% *Hypoglycemia) 100 ml IV PRN PRN PRN Reason: Hypoglycemia Exam - Vital Signs Vital signs: Vital Signs Temp Pulse Resp BP Pulse Ox 98.5 F 74 16 149/81 94 05/09/21 09:27 05/09/21 09:27 05/09/21 09:27 05/09/21 09:27 05/09/21 09:27 Results - Lab Results 05/09/21 10:28 05/09/21 10:28 Most recent lab results Calcium 7.6 mg/dL (8.4-10.2) L 05/09/21 10:28
[2021-05-09] MEDS ORDERED: ACETAMINOPHEN 325 MG TAB PO PRN (17:50)
[2021-05-09] MEDS ORDERED: ONDANSETRON 4 MG/2 ML INJ IV PRN (17:50)
[2021-05-09] MEDS ORDERED: MORPHINE 2 MG/1 ML INJ IV PRN (17:50)
[2021-05-09 19:25] VITALS: BP 160/56
[2021-05-09] MEDS ORDERED: HEPARIN 5,000 UNIT/1 ML VIAL SUB-Q SCH (22:00)
--- NOTE | 2021-05-10 10:01 | Electrocardiograph Report ---
[facility] Test Date: 2021-05-09 Test Time: 09:37:03 Pat Name: MIRTHA ORTA Department: Room: Gender: F Plant General Manager: YUDITH : 1960 Requested By: MILAN LAUREN Order Number: [id number] Reading MD: Rashaad Brice Measurements Intervals [place] Rate: 78 P: 50 NH: 229 QRS: -27 QRSD: 82 T: 64 QT: 410 QTc: 468 Interpretive Statements Sinus rhythm LAFB first deggree AV block Anterior infarct, age undetermined Compared to ECG 05/02/2021 23:10:11 First degree AV block now present Electronically Signed On 05-10-2021 10:01:13 EST by Rashaad Brice
== END 2021-05-09 18:00 | disposition home or self-care (01) ==
LOC: ED 09:25
DX: I13.2 Hypertensive heart and chronic kidney disease with heart failure and with stage 5 chronic kidney disease, or end stage renal disease (principal); E11.22 Type 2 diabetes mellitus with diabetic chronic kidney disease; N18.6 End stage renal disease; I50.9 Heart failure, unspecified; Z99.2 Dependence on renal dialysis; Z88.6 Allergy status to analgesic agent
CPT/HCPCS: 36415; 71046; 80048; 85027; 93005; 99284; J0610

== ENCOUNTER 2021-05-16 09:08 | Inpatient (IN) | payer MEDICARE ==
--- NOTE | 2021-05-16 11:00 | Emergency Department Report ---
ED General Adult HPI - General Chief complaint: Medical Clearance Stated complaint: DIALYSIS Time Seen by Provider: 05/16/21 10:27 Source: patient, EMS Mode of arrival: Stretcher Limitations: Other - History of Present Illness Initial comments: The patient presents to the emergency department the chief complaint of needing dialysis. Patient states she was last dialyzed on Wednesday. She states she does not have a dialysis home. Her mophead sewer who is Dr. Stapleton was at the bedside as well. Patient has no complaints and denies any chest pain, shortness breath, or headache. -: unknown Severity scale (0 -10): 0 Consistency: constant Improves with: none Worsens with: none Associated Symptoms: denies other symptoms Treatments Prior to Arrival: none - Related Data Home Medications Medication Instructions Recorded Confirmed Last Taken Atorvastatin [Lipitor] 40 mg PO QHS 02/03/21 05/03/21 05/02/21 10:00 glipiZIDE [Glucotrol] 10 mg PO QDAY 02/03/21 05/03/21 05/02/21 Previous Rx's Medication Instructions Recorded Last Taken Type Sodium Bicarbonate 1,300 mg PO TID 30 Days #180 tablet 02/03/21 05/02/21 10:00 Rx amLODIPine 10 mg PO DAILY #30 tablet 02/26/21 05/02/21 10:00 Rx carvediloL [Coreg] 12.5 mg PO BID #60 tablet 02/26/21 05/02/21 10:00 Rx calcitrioL [Rocaltrol] 0.5 mcg PO QDAY 30 Days #30 capsule 03/07/21 05/02/21 10:00 Rx Sevelamer Carbonate [Renvela] 800 mg PO AC #90 tablet 03/13/21 05/02/21 10:00 Rx Loperamide [Imodium] 2 mg PO Q6H PRN #30 capsule 03/27/21 05/02/21 10:00 Rx Allergies Allergy/AdvReac Type Severity Reaction Status Date / Time ibuprofen AdvReac Unknown Verified 05/16/21 12:04 ED Review of Systems ROS: Stated complaint: DIALYSIS Other details as noted in HPI Comment: All other systems reviewed and negative Constitutional: denies: chills, fever Eyes: denies: eye pain, eye discharge, vision change ENT: denies: ear pain, throat pain Respiratory: denies: cough, shortness of breath, wheezing Cardiovascular: denies: chest pain, palpitations Endocrine: no symptoms reported Gastrointestinal: denies: abdominal pain, nausea, diarrhea Genitourinary: denies: urgency, dysuria, discharge Musculoskeletal: denies: back pain, joint swelling, arthralgia Skin: denies: rash, lesions Neurological: denies: headache, weakness, paresthesias Psychiatric: denies: anxiety, depression Hematological/Lymphatic: denies: easy bleeding, easy bruising ED Past Medical Hx - Past Medical History Previous Medical History?: Yes Hx Hypertension: Yes Hx Congestive Heart Failure: Yes Hx Diabetes: Yes Hx Renal Disease: Yes (On dialysis (-W-)) Hx Asthma: No Hx COPD: No Hx HIV: No Additional medical history: BLIND - Surgical History Additional Surgical History: Toe amputation - Social History Smoking Status: Never Smoker Substance Use Type: None - Medications Home Medications: Home Medications Medication Instructions Recorded Confirmed Last Taken Type Atorvastatin [Lipitor] 40 mg PO QHS 02/03/21 05/03/21 05/02/21 10:00 History Sodium Bicarbonate 1,300 mg PO TID 30 Days #180 tablet 02/03/21 05/03/21 05/02/21 10:00 Rx glipiZIDE [Glucotrol] 10 mg PO QDAY 02/03/21 05/03/21 05/02/21 History amLODIPine 10 mg PO DAILY #30 tablet 02/26/21 05/03/21 05/02/21 10:00 Rx carvediloL [Coreg] 12.5 mg PO BID #60 tablet 02/26/21 05/03/21 05/02/21 10:00 Rx calcitrioL [Rocaltrol] 0.5 mcg PO QDAY 30 Days #30 capsule 03/07/21 05/03/21 05/02/21 10:00 Rx Sevelamer Carbonate [Renvela] 800 mg PO AC #90 tablet 03/13/21 05/03/21 05/02/21 10:00 Rx Loperamide [Imodium] 2 mg PO Q6H PRN #30 capsule 03/27/21 05/03/21 05/02/21 10:0 0 Rx ED Physical Exam - General Limitations: Other General appearance: alert, in no apparent distress - Head Head exam: Present: atraumatic, normocephalic - Eye Eye exam: Present: normal appearance, PERRL, EOMI - ENT ENT exam: Present: mucous membranes moist - Neck Neck exam: Present: normal inspection - Respiratory Respiratory exam: Present: normal lung sounds bilaterally. Absent: respiratory distress - Cardiovascular Cardiovascular Exam: Present: regular rate, normal rhythm. Absent: systolic murmur, diastolic murmur, rubs, gallop - GI/Abdominal GI/Abdominal exam: Present: soft, normal bowel sounds. Absent: distended, ten derness - Extremities Exam Extremities exam: Present: normal inspection - Back Exam Back exam: Present: normal inspection - Neurological Exam Neurological exam: Present: alert, oriented X3, CN II-XII intact. Absent: motor sensory deficit - Psychiatric Psychiatric exam: Present: normal affect, normal mood - Skin Skin exam: Present: warm, dry, intact, normal color. Absent: rash ED Course Vital Signs 05/16/21 05/16/21 10:24 10:31 Temperature 98.1 F Pulse Rate 57 L Respiratory 16 Rate Blood Pressure 167/85 O2 Sat by Pulse 100 Oximetry ED Medical Decision Making - Lab Data Result diagrams: 05/16/21 11:17 05/16/21 11:17 Lab Results 05/16/21 05/16/21 Range/Units 11:17 11:17 WBC 7.8 (4.5-11.0) K/mm3 RBC 2.88 L (3.65-5.03) M/mm3 Hgb 8.7 L (10.1-14.3) gm/dl Hct 26.9 L (30.3-42.9) % MCV 93 (79-97) fl MCH 30 (28-32) pg MCHC 33 (30-34) % RDW 15.7 H (13.2-15.2) % Plt Count 201 (140-440) K/mm3 Lymph % (Auto) 19.6 (13.4-35.0) % [place] % (Auto) 12.8 H (0.0-7.3) % Eos % (Auto) 3.7 (0.0-4.3) % Baso % (Auto) 0.9 (0.0-1.8) % Lymph # (Auto) 1.5 (1.2-5.4) K/mm3 [place] # (Auto) 1.0 H (0.0-0.8) K/mm3 Eos # (Auto) 0.3 (0.0-0.4) K/mm3 Baso # (Auto) 0.1 (0.0-0.1) K/mm3 Seg Neutrophils % 63.0 (40.0-70.0) % Seg Neutrophils # 4.9 (1.8-7.7) K/mm3 Sodium 129 L (137-145) mmol/L Potassium 7.2 H* (3.6-5.0) mmol/L Chloride 98.8 (98-107) mmol/L Carbon Dioxide 19 L (22-30) mmol/L Anion Gap 18 mmol/L BUN 40 H (7-17) mg/dL Creatinine 11.4 H (0.6-1.2) mg/dL Estimated GFR 4 ml/min BUN/Creatinine Ratio 4 % Glucose 235 H (65-100) mg/dL Calcium 8.3 L (8.4-10.2) mg/dL Total Bilirubin 0.50 (0.1-1.2) mg/dL AST 10 (5-40) units/L ALT 9 (7-56) units/L Alkaline Phosphatase 90 (35-129) units/L Total Protein 7.4 (6.3-8.2) g/dL Albumin 3.3 L (3.9-5) g/dL Albumin/Globulin Ratio 0.8 % - Medical Decision Making Spoke to Dr. Stapleton about the patient and her laboratory findings. He states her potassium is With results from last week. Was requested to get the patient calcium chloride and orders have already been given to the dialysis team. Patient will be leaving the ED to get hemodialysis and will return for discharge Critical care attestation.: If time is entered above; I have spent that time in minutes in the direct care of this critically ill patient, excluding procedure time. ED Disposition Clinical Impression: Hyperkalemia, ESRD (end stage renal disease) on dialysis Disposition: 01 HOME / SELF CARE / HOMELESS Is pt being admited?: No Does the pt Need Aspirin: No Condition: Stable Instructions: Dialysis, Hyperkalemia Referrals: RACHID QUINONES [Other] - 3-5 Days
[2021-05-16 11:29] LABS: Basophils # (Auto) 0.1 K/mm3 (0.0-0.1); Basophils % (Auto) 0.9 % (0.0-1.8); Eosinophils # (Auto) 0.3 K/mm3 (0.0-0.4); Eosinophils % (Auto) 3.7 % (0.0-4.3); Hematocrit 26.9 % (30.3-42.9); Hemoglobin 8.7 gm/dl (10.1-14.3); Lymphocytes # (Auto) 1.5 K/mm3 (1.2-5.4); Lymphocytes % (Auto) 19.6 % (13.4-35.0); Mean Corpuscular HGB Conc 33 % (30-34); Mean Corpuscular Volume 93 fl (79-97); Monocytes % (Auto) 12.8 % (0.0-7.3); Platelet Count 201 K/mm3 (140-440); Red Blood Count 2.88 M/mm3 (3.65-5.03); Red Cell Distribution Width 15.7 % (13.2-15.2)
[2021-05-16 11:48] LABS: Albumin 3.3 g/dL (3.9-5); Calcium 8.3 mg/dL (8.4-10.2)
[2021-05-16] MEDS ORDERED: CALCIUM CHLORIDE 1,000 MG in SODIUM CHLORIDE 0.9% 100 ML IV ONE (12:04)
--- NOTE | 2021-05-16 13:02 | History and Physical Report ---
History of Present Illness Chief complaint: I need dialysis today History of present illness: 60 YO Female with HTN, DM, Asthma Mild Intermittent, Legally Blind, ESRD on HD(M,W,F) noncompliant with outpatient dialysis presents ED for evaluation. Patient reports "I need dialysis today". Patient states that she has been unable to receive outpatient dialysis and was last dialyzed on May 09, 2021. Patient states that she does not have outpatient dialysi-s arranged have been. Patient states that she had experienced shortness of breath, generalized weakness, decreased exercise tolerance, orthopnea, paroxysmal nocturnal dyspnea, dyspnea on exertion, dyspnea at rest, and I am sure the situation over the past 3 days with worsening symptoms over the same timeframe. EMS was notified and upon arrival the patient was found to be in distress and subsequently transported to [facility] for further care and evaluation of the aforementioned symptoms. The patient was seen and evaluated in the emergency department. All lab and imaging studies reviewed. Patient was found to have we are going to be end-stage renal disease, fluid overload, hyperkalemia without EKG changes, metabolic acidosis. Patient admitted to medical floor due to increased risk of worsening symptoms. Nephrology team consulted in ED for urgent dialysis. Patient denies fever, chills, chest pain, palpitation, adductive cough, skin rash, recent contact, known exposure to COVID-19. All medication listed at time of admission has been reconciled. Advanced care planning conducted in ED. previous admission on 05/03/2021 reviewed. Past History Past Medical History: diabetes, ESRD, hypertension Past Surgical History: Other (Dialysis access) Social history: Family history: diabetes, hypertension Medications and Allergies Allergies Allergy/AdvReac Type Severity Reaction Status Date / Time ibuprofen AdvReac Unknown Verified 05/16/21 12:04 Home Medications Medication Instructions Recorded Confirmed Last Taken Type Atorvastatin [Lipitor] 40 mg PO QHS 02/03/21 05/16/21 05/15/21 08:00 History Sodium Bicarbonate 1,300 mg PO TID 30 Days #180 tablet 02/03/21 05/16/21 05/15/21 08:00 Rx glipiZIDE [Glucotrol] 10 mg PO QDAY 02/03/21 05/16/21 05/15/21 08:00 History amLODIPine 10 mg PO DAILY #30 tablet 02/26/21 05/16/21 05/15/21 08:00 Rx carvediloL [Coreg] 12.5 mg PO BID #60 tablet 02/26/21 05/16/21 05/15/21 08:00 Rx calcitrioL [Rocaltrol] 0.5 mcg PO QDAY 30 Days #30 capsule 03/07/21 05/16/21 05/15/21 08:00 Rx Sevelamer Carbonate [Renvela] 800 mg PO AC #90 tablet 03/13/21 05/16/21 05/15/21 08:00 Rx Loperamide [Imodium] 2 mg PO Q6H PRN #30 capsule 03/27/21 05/16/21 05/15/21 08:00 Rx Review of Systems Constitutional: no weight loss, no weight gain, no fever, no chills Ears, nose, mouth and throat: no ear pain, no ear discharge, no decreased hearing, no nose pain, no nasal discharge Breasts: no change in shape, no swelling, no mass Cardiovascular: no chest pain, no palpitations, no rapid/irregular heart beat, no edema, no syncope Respiratory: no cough Gastrointestinal: no abdominal pain, no nausea, no vomiting Genitourinary Female: no pelvic pain, no flank pain, no dysuria, no urinary frequency, no urgency Rectal: no pain, no incontinence Musculoskeletal: no shooting arm pain, no arm numbness/tingling, no low back pain, no leg numbness/tingling Integumentary: no rash, no pruritis, no sores, no wounds Neurological: no head injury, no paralysis, no weakness, no numbness, no tingling Psychiatric: no anxiety, no change in sleep habits, no sleep disturbances, no insomnia, no hypersomnia, no change in libido, no suicidal ideation Endocrine: no cold intolerance, no heat intolerance, no excessive thirst, no polydipsia, no nocturia Hematologic/Lymphatic: no easy bruising, no easy bleeding Allergic/Immunologic: no urticaria, no allergic rhinitis, no wheezing Exam - Constitutional Vitals: Temp Pulse Resp BP Pulse Ox 98.1 F 57 L 16 167/85 100 05/16/21 10:24 05/16/21 10:24 05/16/21 10:31 05/16/21 10:24 05/16/21 10:31 General appearance: Present: mild distress - EENT Eyes: Present: PERRL ENT: hearing intact, clear oral mucosa - Neck Neck: Present: supple, normal ROM - Respiratory Respiratory effort: normal Respiratory: bilateral: diminished - Cardiovascular Heart Sounds: Present: S1 & S2. Absent: rub, click - Extremities Extremities: pulses symmetrical, No edema Peripheral Pulses: within normal limits - Abdominal General gastrointestinal: Present: soft, non-tender, non-distended, normal bowel sounds Female genitourinary: Present: normal - Integumentary Integumentary: Present: clear, warm, dry - Musculoskeletal Musculoskeletal: gait normal, strength equal bilaterally - Psychiatric Psychiatric: appropriate mood/affect, intact judgment & insight - Neurologic Neurologic: CNII-XII intact, moves all extremities Results - Labs CBC & Chem 7: 05/16/21 11:17 05/16/21 11:17 Labs: Abnormal lab results 05/16/21 05/16/21 Range/Units 11:17 11:17 RBC 2.88 L (3.65-5.03) M/mm3 Hgb 8.7 L (10.1-14.3) gm/dl Hct 26.9 L (30.3-42.9) % RDW 15.7 H (13.2-15.2) % [place] % (Auto) 12.8 H (0.0-7.3) % [place] # (Auto) 1.0 H (0.0-0.8) K/mm3 Sodium 129 L (137-145) mmol/L Potassium 7.2 H* (3.6-5.0) mmol/L Carbon Dioxide 19 L (22-30) mmol/L BUN 40 H (7-17) mg/dL Creatinine 11.4 H (0.6-1.2) mg/dL Glucose 235 H (65-100) mg/dL Calcium 8.3 L (8.4-10.2) mg/dL Albumin 3.3 L (3.9-5) g/dL Assessment and Plan - Patient Problems (1) ESRD on dialysis Current Visit: Yes Status: Acute Plan to address problem: Nephrology team consulted in ED. dialysis as per renal team. Strict I/O, monitor urine output every shift, monitor fluid balance. Avoid nephrotoxic agents. (2) Hyperosmolar hyperglycemic state (HHS) Current Visit: Yes Status: Acute Plan to address problem: Consistent carbohydrate diet, insulin protocol, Accu-Chek, hypoglycemia protocol. (3) Hyperkalemia Current Visit: Yes Status: Acute Plan to address problem: No EKG changes, dialysis per renal team. (4) Acidosis Current Visit: No Status: Acute (5) DVT prophylaxis Current Visit: Yes Status: Acute (6) Advance care planning Current Visit: Yes Status: Acute Plan to address problem: Disease education conducted, care plan discussed, diagnoses discussed, prognosis discussed, patient is full code. Patient knowledges understanding and agreement with care plan, +30 minutes.
[2021-05-16] MEDS ORDERED: ALBUTEROL 2.5 MG/3 ML NEBU IH PRN (13:03)
[2021-05-16] MEDS ORDERED: oxyCODONE /ACETAMINOPHEN 5-325MG TAB PO PRN (13:03)
[2021-05-16] MEDS ORDERED: HYDROmorphone 1 MG/1 ML INJ IV PRN (13:03)
[2021-05-16] MEDS ORDERED: ACETAMINOPHEN 325 MG TAB PO PRN (13:03)
[2021-05-16] MEDS ORDERED: ONDANSETRON 4 MG/2 ML INJ IV PRN (13:03)
[2021-05-16] MEDS ORDERED: DEXTROSE 50% IN WATER (25GM) 50 ML SYRINGE IV PRN (13:05)
[2021-05-16] MEDS ORDERED: LOPERAMIDE 2 MG CAP PO PRN (13:05)
[2021-05-16] MEDS ORDERED: SODIUM CHLORIDE 0.9% 100 ML IV PRN (13:50)
[2021-05-16] MEDS: SODIUM BICARBONATE 650 MG TAB PO SCH ×2 (14:05→22:20)
--- NOTE | 2021-05-16 14:08 | Consultation ---
History of Present Illness - Reason for Consult Consult date: 05/16/21 end stage renal disease - History of Present Illness The patient is a 60 YO female known to our service with history significant for DM-2, HTN, Diabetic retinopathy and ESRD on HD who presented to [facility] ED 05/16/2021 for hemodialysis need. Patient is currently not established with any outpatient dialysis clinic. She has been coming to ED about once a week for hemodialysis. She denies any complaint at this time. Lab results noted. Nephrology was consulted for ESRD management. Past History Past Medical History: other (See HPI.) Medications and Allergies Allergies Allergy/AdvReac Type Severity Reaction Status Date / Time ibuprofen AdvReac Unknown Verified 05/16/21 12:04 Home Medications Medication Instructions Recorded Confirmed Last Taken Type Atorvastatin [Lipitor] 40 mg PO QHS 02/03/21 05/16/21 05/15/21 08:00 History Sodium Bicarbonate 1,300 mg PO TID 30 Days #180 tablet 02/03/21 05/16/21 05/15/21 08:00 Rx glipiZIDE [Glucotrol] 10 mg PO QDAY 02/03/21 05/16/21 05/15/21 08:00 History amLODIPine 10 mg PO DAILY #30 tablet 02/26/21 05/16/21 05/15/21 08:00 Rx carvediloL [Coreg] 12.5 mg PO BID #60 tablet 02/26/21 05/16/21 05/15/21 08:00 Rx calcitrioL [Rocaltrol] 0.5 mcg PO QDAY 30 Days #30 capsule 03/07/21 05/16/21 05/15/21 08:00 Rx Sevelamer Carbonate [Renvela] 800 mg PO AC #90 tablet 03/13/21 05/16/21 05/15/21 08:00 Rx Loperamide [Imodium] 2 mg PO Q6H PRN #30 capsule 03/27/21 05/16/21 05/15/21 08:00 Rx Active Meds: Active Medications Acetaminophen (Acetaminophen 325 Mg Tab) 650 mg PO Q4H PRN PRN Reason: Pain MILD(1-3)/Fever >100.5/[place] Albuterol (Albuterol 2.5 Mg/3 Ml Nebu) 2.5 mg IH Q4HRT PRN PRN Reason: Shortness Of Breath Amlodipine Besylate (Amlodipine 10 Mg Tab) 10 mg PO DAILY [facility] Atorvastatin Calcium (Atorvastatin 40 Mg Tab) 40 mg PO QHS [facility]RO Calcitriol (Calcitriol 0.5 Mcg Cap) 0.5 mcg PO QDAY [facility] Carvedilol (Carvedilol 12.5 Mg Tab) 12.5 mg PO BID [facility] Dextrose (Dextrose 50% In Water (25gm) 50 Ml Syringe) 50 ml IV Q30MIN PRN; Protocol PRN Reason: Hypoglycemia Hydromorphone HCl (Hydromorphone 1 Mg/1 Ml Inj) 0.5 mg IV Q23H PRN PRN Reason: Pain , Severe (7-10) Sodium Chloride (Nacl 0.9%) 100 mls @ 999 mls/hr IV FELI PRN PRN Reason: Hypotension Insulin Human Lispro (Insulin Lispro 100 Unit/Ml) 0 unit SUB-Q Q6HR [facility]; Protocol Loperamide HCl (Loperamide 2 Mg Cap) 2 mg PO Q6H PRN PRN Reason: Diarrhea Ondansetron HCl (Ondansetron 4 Mg/2 Ml Inj) 4 mg IV Q8H PRN PRN Reason: Nausea And Vomiting Oxycodone/Acetaminophen (Oxycodone /Acetaminophen 5-325mg Tab) 1 tab PO Q16H PRN PRN Reason: Pain, Moderate (4-6) Sevelamer Carbonate (Sevelamer Carbonate 800 Mg Tab) 800 mg PO AC [facility] Sodium Bicarbonate (Sodium Bicarbonate 650 Mg Tab) 1,300 mg PO TID [facility] Sodium Chloride (Sodium Chloride 0.9% 10 Ml Flush Syringe) 10 ml IV BID PEDRO Sodium Chloride (Sodium Chloride 0.9% 10 Ml Flush Syringe) 10 ml IV PRN PRN PRN Reason: LINE FLUSH Review of Systems All systems: negative Exam - Vital Signs Vital signs: Vital Signs Temp Pulse BP 98.1 F 57 L 167/85 05/16/21 10:24 05/16/21 10:24 05/16/21 10:24 Results - Lab Results 05/16/21 11:17 05/17/21 08:26 Most recent lab results Calcium 8.3 mg/dL (8.4-10.2) L 05/16/21 11:17 Assessment and Plan 1. ESRD: Patient is on maintenance hemodialysis. Currently not established with any outpatient dialysis clinic. Meds dosage based on GFR. Hemodialysis: 05/16. 2. FEN: Hyperkalemia, HD today. Monitor lytes and volume status. 3. HTN: Volume control thru HD. Continue home meds. Monitor BP. Advised to limit salt and fluid intake. 4. DM. 5. Anemia, POA: 2/2 ESRD. Epogen with HD as needed. Spoke with her son over the phone. Subjective: Patient was seen and examined at the bedside. General Appearance: General appearance: well-developed, appears stated age, no distress EENT: ATNC, hearing intact Neck: neck supple, trachea midline Respiratory: ctab Heart: regular, S1S2, no murmur Abdomen: soft, distended, NT, BS heard Integumentary: no rash, warm and dry Neurologic: AO, blindness noted, able to move extremities Ext: no edema noted Hemodialysis access: R IJ tunnel catheter
[2021-05-16] MEDS ORDERED: SEVELAMER CARBONATE 800 MG TAB PO SCH (16:30)
[2021-05-16] MEDS: carvediloL 12.5 MG TAB PO SCH (22:20)
[2021-05-16] MEDS: INSULIN LISPRO 100 UNIT/ML SUB-Q SCH (23:18)
[2021-05-17] MEDS: INSULIN LISPRO 100 UNIT/ML SUB-Q SCH (07:00)
--- NOTE | 2021-05-17 07:31 | Discharge Summary ---
Providers - Providers Date of Admission: 05/16/21 13:03 Attending physician: JERICHO ORTIZ MD Hospitalization Condition: Stable Exam - Constitutional Vitals: Temp Pulse Resp BP Pulse Ox 98.4 F 90 18 146/77 96 05/17/21 04:46 05/17/21 04:46 05/17/21 04:46 05/17/21 04:46 05/17/21 04:46 Plan Care Plan Goals: Until a dialysis center is finalized for you, please report to the emergency department every Wednesday, Wednesday, Wednesday for dialysis. Follow up with: RACHID QUINONES [Other] - 3-5 Days
[2021-05-17] MEDS: SODIUM BICARBONATE 650 MG TAB PO SCH (08:49)
[2021-05-17 09:08] LABS: Calcium 8.8 mg/dL (8.4-10.2)
[2021-05-17] MEDS ORDERED: amLODIPine 10 MG TAB PO SCH (10:00)
[2021-05-17] MEDS ORDERED: CALCITRIOL 0.5 MCG CAP PO SCH (10:00)
[2021-05-17] MEDS: carvediloL 12.5 MG TAB PO SCH (10:19)
[2021-05-17 10:20] VITALS: BP 151/87
[2021-05-17 13:21] LABS: Hepatitis B Surface Antigen Non-Reactive (Negative); Hepatitis C Virus Antibody Non-Reactive (NonReactive)
[2021-05-18] MEDS ORDERED: SODIUM BICARBONATE 650 MG TAB PO SCH (10:00)
== END 2021-05-17 10:49 | disposition home or self-care (01) | DRG 640 ==
LOC: ED 09:08 → 3A 13:03
PROVIDERS: ADMIT Internal Medicine; ATTEND Student in an Organized Health Care Education/Training Program
PROC: 5A1D70Z Performance of Urinary Filtration, Intermittent, Less than 6 Hours Per Day (ICD-10-PCS; principal; 2021-05-16)
DX: E87.5 Hyperkalemia (principal); E11.00 Type 2 diabetes mellitus with hyperosmolarity without nonketotic hyperglycemic-hyperosmolar coma (NKHHC); N18.6 End stage renal disease; I13.2 Hypertensive heart and chronic kidney disease with heart failure and with stage 5 chronic kidney disease, or end stage renal disease; E87.2 Acidosis; E87.70 Fluid overload, unspecified; E11.319 Type 2 diabetes mellitus with unspecified diabetic retinopathy without macular edema; Z99.2 Dependence on renal dialysis; D64.9 Anemia, unspecified; H54.8 Legal blindness, as defined in USA; J45.909 Unspecified asthma, uncomplicated; Z83.3 Family history of diabetes mellitus; Z82.49 Family history of ischemic heart disease and other diseases of the circulatory system; Z88.8 Allergy status to other drugs, medicaments and biological substances; I50.9 Heart failure, unspecified; E11.22 Type 2 diabetes mellitus with diabetic chronic kidney disease; Z89.429 Acquired absence of other toe(s), unspecified side
CPT/HCPCS: 36415; 80048; 80053; 80074; 82962; 85025; G0378; J3490; Q9967; J1815

== ENCOUNTER 2021-05-23 09:00 | Observation (INO) | payer MEDICARE ==
--- NOTE | 2021-05-23 10:36 | Emergency Department Report ---
ED General Adult HPI - General Chief complaint: Weakness Stated complaint: DIALYSIS TREATMENT Time Seen by Provider: 05/23/21 10:13 Source: EMS Mode of arrival: Stretcher Limitations: Physical Limitation - History of Present Illness Initial comments: 60-year-old female with a past medical history of end-stage renal disease on dialysis since January presents to the hospital requesting dialysis. Patient does not have an outpatient dialysis center. Last emesis was here at [facility] May 16. Patient denies shortness of breath, pain, or leg edema. She has a right chest wall dialysis catheter has not had any surgical graft or fistula placement. Patient does make urine and has urine output 3-4 times per day Her bead cutter Dr. Stapleton Severity scale (0 -10): 0 - Related Data Home Medications Medication Instructions Recorded Confirmed Last Taken Atorvastatin [Lipitor] 40 mg PO QHS 02/03/21 05/16/21 05/15/21 08:00 glipiZIDE [Glucotrol] 10 mg PO QDAY 02/03/21 05/16/21 05/15/21 08:00 Previous Rx's Medication Instructions Recorded Last Taken Type Sodium Bicarbonate 1,300 mg PO TID 30 Days #180 tablet 02/03/21 05/15/21 08:00 Rx amLODIPine 10 mg PO DAILY #30 tablet 02/26/21 05/15/21 08:00 Rx carvediloL [Coreg] 12.5 mg PO BID #60 tablet 02/26/21 05/15/21 08:00 Rx calcitrioL [Rocaltrol] 0.5 mcg PO QDAY 30 Days #30 capsule 03/07/21 05/15/21 08:00 Rx Sevelamer Carbonate [Renvela] 800 mg PO AC #90 tablet 03/13/21 05/15/21 08:00 Rx Loperamide [Imodium] 2 mg PO Q6H PRN #30 capsule 03/27/21 05/15/21 08:00 Rx Allergies Allergy/AdvReac Type Severity Reaction Status Date / Time ibuprofen AdvReac Unknown Verified 05/23/21 09:23 ED Review of Systems ROS: Stated complaint: DIALYSIS TREATMENT Other details as noted in HPI Comment: All other systems reviewed and negative ED Past Medical Hx - Past Medical History Previous Medical History?: Yes Hx Hypertension: Yes Hx Congestive Heart Failure: Yes Hx Diabetes: Yes Hx Renal Disease: Yes (On dialysis (M-W-F)) Hx Asthma: No Hx COPD: No Hx HIV: No Additional medical history: BLIND - Surgical History Past Surgical History?: Yes Additional Surgical History: Toe amputation - Social History Smoking Status: Current Every Day Smoker Substance Use Type: None - Medications Home Medications: Home Medications Medication Instructions Recorded Confirmed Last Taken Type Atorvastatin [Lipitor] 40 mg PO QHS 02/03/21 05/16/21 05/15/21 08:00 History Sodium Bicarbonate 1,300 mg PO TID 30 Days #180 tablet 02/03/21 05/16/2104/29 08:00 Rx glipiZIDE [Glucotrol] 10 mg PO QDAY 02/03/21 05/16/21 05/15/21 08:00 History amLODIPine 10 mg PO DAILY #30 tablet 02/26/21 05/16/21 05/15/21 08:00 Rx carvediloL [Coreg] 12.5 mg PO BID #60 tablet 02/26/21 05/16/21 05/15/21 08:00 Rx calcitrioL [Rocaltrol] 0.5 mcg PO QDAY 30 Days #30 capsule 03/07/21 05/16/21 05/15/21 08:00 Rx Sevelamer Carbonate [Renvela] 800 mg PO AC #90 tablet 03/13/21 05/16/21 05/15/21 08:00 Rx Loperamide [Imodium] 2 mg PO Q6H PRN #30 capsule 03/27/21 05/16/21 05/15/21 08:00 Rx ED Physical Exam - General Limitations: Physical Limitation - Other Other exam information: General: No acute distress Head: Atraumatic Eyes: normal appearance ENT: Moist mucous membranes Neck: Normal appearance, no midline tenderness Chest: Clear to auscultation bilaterally CV: Regular rate and rhythm Abdomen: Soft, normal bowel sounds, nontender, nondistended, no rebound or guarding Back: Normal inspection Extremity: Normal inspection, full range of motion, no edema Neuro: Alert O x 3, no facial asymmetry, speech clear, no gross motor sensory deficit Psych: Appropriate behavior ED Course Vital Signs 05/23/21 05/23/21 05/23/21 09:22 09:59 10:00 Temperature 97.9 F Pulse Rate 84 Respiratory 16 Rate Blood Pressure Blood Pressure 164/82 [Left] O2 Sat by Pulse 100 100 99 Oximetry 05/23/21 05/23/21 05/23/21 10:12 10:16 10:30 Temperature 97.4 F L Pulse Rate Respiratory 18 Rate Blood Pressure 161/83 166/84 Blood Pressure [Left] O2 Sat by Pulse 99 100 100 Oximetry 05/23/21 05/23/21 10:46 11:00 Temperature Pulse Rate Respiratory Rate Blood Pressure 166/84 156/80 Blood Pressure [Left] O2 Sat by Pulse 100 99 Oximetry - Consultations Consultation #1: 05/23/21 11:35 This was discussed with Dr. Stapleton who states he is patient's primary nephrologi st and will arrange for dialysis ED Medical Decision Making - Lab Data Result diagrams: 05/23/21 10:46 05/23/21 10:46 Lab Results 05/23/21 05/23/21 Range/Units 10:46 10:46 WBC 8.9 (4.5-11.0) K/mm3 RBC 2.83 L (3.65-5.03) M/mm3 Hgb 8.6 L (10.1-14.3) gm/dl Hct 26.1 L (30.3-42.9) % MCV 92 (79-97) fl MCH 31 (28-32) pg MCHC 33 (30-34) % RDW 15.9 H (13.2-15.2) % Plt Count 202 (140-440) K/mm3 Lymph % (Auto) 22.1 (13.4-35.0) % [place] % (Auto) 10.2 H (0.0-7.3) % Eos % (Auto) 2.5 (0.0-4.3) % Baso % (Auto) 1.1 (0.0-1.8) % Lymph # (Auto) 2.0 (1.2-5.4) K/mm3 [place] # (Auto) 0.9 H (0.0-0.8) K/mm3 Eos # (Auto) 0.2 (0.0-0.4) K/mm3 Baso # (Auto) 0.1 (0.0-0.1) K/mm3 Seg Neutrophils % 64.1 (40.0-70.0) % Seg Neutrophils # 5.7 (1.8-7.7) K/mm3 Sodium 138 (137-145) mmol/L Potassium 5.3 H (3.6-5.0) mmol/L Chloride 103.3 (98-107) mmol/L Carbon Dioxide 20 L (22-30) mmol/L Anion Gap 20 mmol/L BUN 59 H (7-17) mg/dL Glucose 210 H (65-100) mg/dL Calcium 8.1 L (8.4-10.2) mg/dL - Medical Decision Making 60-year-old female who is currently on dialysis but does not have a outpatient dialysis center. Patient will be admitted for dialysis. Case discussed with bead cutter Critical Care Time: No Critical care attestation.: If time is entered above; I have spent that time in minutes in the direct care of this critically ill patient, excluding procedure time. ED Disposition Clinical Impression: ESRD needing dialysis, Missed dialysis, Hyperglycemia Disposition: 09 ADMITTED INPATIENT Is pt being admited?: Yes Condition: Stable Time of Disposition: 11:44 (dr bravo/hospitalist)
[2021-05-23 11:24] LABS: Basophils # (Auto) 0.1 K/mm3 (0.0-0.1); Basophils % (Auto) 1.1 % (0.0-1.8); Eosinophils # (Auto) 0.2 K/mm3 (0.0-0.4); Eosinophils % (Auto) 2.5 % (0.0-4.3); Hematocrit 26.1 % (30.3-42.9); Hemoglobin 8.6 gm/dl (10.1-14.3); Lymphocytes % (Auto) 22.1 % (13.4-35.0); Mean Corpuscular HGB Conc 33 % (30-34); Mean Corpuscular Volume 92 fl (79-97); Monocytes # (Auto) 0.9 K/mm3 (0.0-0.8); Monocytes % (Auto) 10.2 % (0.0-7.3); Platelet Count 202 K/mm3 (140-440); Red Blood Count 2.83 M/mm3 (3.65-5.03); Red Cell Distribution Width 15.9 % (13.2-15.2)
[2021-05-23 11:30] LABS: Calcium 8.1 mg/dL (8.4-10.2)
[2021-05-23] MEDS ORDERED: SODIUM CHLORIDE 0.9% 100 ML IV PRN (13:00)
[2021-05-23] MEDS ORDERED: EPOETIN ALFA-EPBX 20,000 UNIT/1 ML VIAL SUB-Q PRN (13:00)
[2021-05-23] MEDS ORDERED: HEPARIN 10,000 UNITS/10 ML VIAL IV PRN (13:00)
[2021-05-23] MEDS ORDERED: ONDANSETRON 4 MG/2 ML INJ IV PRN (13:26)
[2021-05-23] MEDS ORDERED: METOCLOPRAMIDE 10 MG/2 ML INJ IV PRN (13:26)
[2021-05-23] MEDS ORDERED: oxyCODONE /ACETAMINOPHEN 5-325MG TAB PO PRN (13:26)
[2021-05-23] MEDS ORDERED: ACETAMINOPHEN 325 MG TAB PO PRN (13:26)
[2021-05-23] MEDS ORDERED: HYDROmorphone 1 MG/1 ML INJ IV PRN (13:26)
[2021-05-23] MEDS ORDERED: LOPERAMIDE 2 MG CAP PO PRN (13:27)
[2021-05-23] MEDS ORDERED: amLODIPine 10 MG TAB PO SCH (14:00)
--- NOTE | 2021-05-23 14:06 | Consultation ---
History of Present Illness - Reason for Consult Consult date: 05/23/21 - History of Present Illness The patient is a 60 YO female known to our service with history significant for DM-2, HTN, Diabetic retinopathy, blindness, Anemia and ESRD on HD who presented to [facility] ED 05/23/2021 for hemodialysis need. Patient is currently not established with any outpatient dialysis clinic. She has been coming to ED about once a week for hemodialysis. She denies any complaint at this time. Lab results noted. Nephrology was consulted for ESRD management. Medications and Allergies Allergies Allergy/AdvReac Type Severity Reaction Status Date / Time ibuprofen AdvReac Unknown Verified 05/23/21 09:23 Home Medications Medication Instructions Recorded Confirmed Last Taken Type Atorvastatin [Lipitor] 40 mg PO QHS 02/03/21 05/16/21 05/15/21 08:00 History Sodium Bicarbonate 1,300 mg PO TID 30 Days #180 tablet 02/03/21 05/16/21 05/15/21 08:00 Rx glipiZIDE [Glucotrol] 10 mg PO QDAY 02/03/21 05/16/21 05/15/21 08:00 History amLODIPine 10 mg PO DAILY #30 tablet 02/26/21 05/16/21 05/15/21 08:00 Rx carvediloL [Coreg] 12.5 mg PO BID #60 tablet 02/26/21 05/16/21 05/15/21 08:00 Rx calcitrioL [Rocaltrol] 0.5 mcg PO QDAY 30 Days #30 capsule 03/07/21 05/16/21 05/15/21 08:00 Rx Sevelamer Carbonate [Renvela] 800 mg PO AC #90 tablet 03/13/21 05/16/21 05/15/21 08:00 Rx Loperamide [Imodium] 2 mg PO Q6H PRN #30 capsule 03/27/21 05/16/21 05/15/21 08:00 Rx Active Meds: Active Medications Acetaminophen (Acetaminophen 325 Mg Tab) 650 mg PO Q4H PRN PRN Reason: Pain MILD(1-3)/Fever >100.5/[place] Amlodipine Besylate (Amlodipine 10 Mg Tab) 10 mg PO DAILY [facility] Atorvastatin Calcium (Atorvastatin 40 Mg Tab) 40 mg PO QHS [facility] Calcitriol (Calcitriol 0.5 Mcg Cap) 0.5 mcg PO QDAY [facility] Carvedilol (Carvedilol 12.5 Mg Tab) 12.5 mg PO BID [facility] Epoetin Esvin-epbx (Epoetin Esvin-Epbx 20,000 Unit/1 Ml Vial) 20,000 unit SUB-Q FELI PRN PRN Reason: hemodialysis Famotidine (Famotidine 20 Mg Tab) 20 mg PO BID [facility] Glipizide (Glipizide 10 Mg Tab) 10 mg PO QDAY [facility] Heparin Sodium (Porcine) (Heparin 10,000 Units/10 Ml Vial) 3,000 unit IV FELI PRN PRN Reason: hemodialysis Hydromorphone HCl (Hydromorphone 1 Mg/1 Ml Inj) 0.5 mg IV Q3H PRN PRN Reason: Pain , Severe (7-10) Sodium Chloride (Nacl 0.9%) 100 mls @ 999 mls/hr IV FELI PRN PRN Reason: Hypotension Loperamide HCl (Loperamide 2 Mg Cap) 2 mg PO Q6H PRN PRN Reason: Diarrhea Metoclopramide HCl (Metoclopramide 10 Mg/2 Ml Inj) 10 mg IV Q6H PRN PRN Reason: Nausea And Vomiting Ondansetron HCl (Ondansetron 4 Mg/2 Ml Inj) 4 mg IV Q8H PRN PRN Reason: Nausea And Vomiting Oxycodone/Acetaminophen (Oxycodone /Acetaminophen 5-325mg Tab) 1 tab PO Q6H PRN PRN Reason: Pain, Moderate (4-6) Sevelamer Carbonate (Sevelamer Carbonate 800 Mg Tab) 800 mg PO AC [facility]RO Sodium Bicarbonate (Sodium Bicarbonate 650 Mg Tab) 1,300 mg PO TID [facility]RO Sodium Chloride (Sodium Chloride 0.9% 10 Ml Flush Syringe) 10 ml IV BID [facility]RO Sodium Chloride (Sodium Chloride 0.9% 10 Ml Flush Syringe) 10 ml IV PRN PRN PRN Reason: LINE FLUSH Exam - Vital Signs Vital signs: Vital Signs Temp Pulse Resp BP Pulse Ox 97.9 F 84 16 164/82 100 05/23/21 09:22 05/23/21 09:22 05/23/21 09:22 05/23/21 09:22 05/23/21 09:22 Results - Lab Results 05/23/21 10:46 05/23/21 10:46 Most recent lab results Calcium 8.1 mg/dL (8.4-10.2) L 05/23/21 10:46 Assessment and Plan 1. ESRD: Patient is on maintenance hemodialysis. Currently not established with any outpatient dialysis clinic. Meds dosage based on GFR. Hemodialysis: 05/23. 2. FEN: Hyperkalemia, HD today. Monitor lytes and volume status. 3. HTN: Volume control thru HD. Continue home meds. Monitor BP. Advised to limit salt and fluid intake. 4. DM. 5. Anemia, POA: 2/2 ESRD. Epogen with HD as needed. Subjective: Patient was seen and examined at the bedside. General Appearance: General appearance: well-developed, appears stated age, no distress EENT: ATNC, hearing intact Neck: neck supple, trachea midline Respiratory: ctab Heart: regular, S1S2, no murmur Abdomen: soft, distended, NT, BS heard Integumentary: no rash, warm and dry Neurologic: AO, blindness noted, able to move extremities Ext: no edema noted Hemodialysis access: R IJ tunnel catheter
[2021-05-23] MEDS: SODIUM BICARBONATE 650 MG TAB PO SCH ×2 (14:43→20:55)
[2021-05-23] MEDS ORDERED: SEVELAMER CARBONATE 800 MG TAB PO SCH (16:30)
[2021-05-23 21:10] VITALS: BP 172/88
[2021-05-23] MEDS ORDERED: carvediloL 12.5 MG TAB PO SCH (22:00)
[2021-05-23] MEDS ORDERED: FAMOTIDINE 20 MG TAB PO SCH (22:00)
[2021-05-24 05:52] LABS: Basophils # (Auto) 0.1 K/mm3 (0.0-0.1); Basophils % (Auto) 0.8 % (0.0-1.8); Eosinophils # (Auto) 0.1 K/mm3 (0.0-0.4); Eosinophils % (Auto) 1.4 % (0.0-4.3); Hematocrit 26.5 % (30.3-42.9); Hemoglobin 8.7 gm/dl (10.1-14.3); Lymphocytes # (Auto) 2.2 K/mm3 (1.2-5.4); Lymphocytes % (Auto) 24.4 % (13.4-35.0); Mean Corpuscular HGB Conc 33 % (30-34); Mean Corpuscular Volume 92 fl (79-97); Monocytes # (Auto) 0.9 K/mm3 (0.0-0.8); Platelet Count 208 K/mm3 (140-440); Red Blood Count 2.89 M/mm3 (3.65-5.03); Red Cell Distribution Width 15.7 % (13.2-15.2)
[2021-05-24 06:11] LABS: Albumin 3.5 g/dL (3.9-5); Calcium 8.9 mg/dL (8.4-10.2)
--- NOTE | 2021-05-24 07:11 | History and Physical Report ---
History of Present Illness Date of examination: 05/23/21 Date of admission: 05/23/21 13:26 Chief complaint: Missed hemodialysis for 1 week History of present illness: 60-year-old -O[place]i female with history of end-stage renal disease since January 2021 comes to the hospital requesting dialysis. Patient does not have an outpatient dialysis center chair. Last dialysis was on May 16, 2021. Patient was in the process of getting her hemodialysis center placement. Patient comes once a week for dialysis. Slight shortness of breath present because of increased fluid intake. Otherwise no symptoms. Patient has a history of hypertension and end-stage renal disease. - Past Medical History --Previous Medical History?: Yes --Hypertension: Yes --Congestive Heart Failure: Yes --Diabetes: Yes --Renal Disease: Yes (On dialysis (-W-)) --Additional medical history: BLIND - Surgical History --Past Surgical History?: Yes --Additional Surgical History: Toe amputation - Social History --Smoking Status: Current Every Day Smoker --Substance Use Type: None -Family history --Htn - Medications Home Medications: Home Medications Medication Instructions Recorded Confirmed Last Taken Type Atorvastatin [Lipitor] 40 mg PO QHS 02/03/21 05/16/21 05/15/21 08:00 History Sodium Bicarbonate 1,300 mg PO TID 30 Days #180 tablet 02/03/21 05/16/21 05/15/21 08:00 Rx glipiZIDE [Glucotrol] 10 mg PO QDAY 02/03/21 05/16/21 05/15/21 08:00 History amLODIPine 10 mg PO DAILY #30 tablet 02/26/21 05/16/21 05/15/21 08:00 Rx carvediloL [Coreg] 12.5 mg PO BID #60 tablet 02/26/21 05/16/21 05/15/21 08:00 Rx calcitrioL [Rocaltrol] 0.5 mcg PO QDAY 30 Days #30 capsule 03/07/21 05/16/21 05/15/21 08:00 Rx Sevelamer Carbonate [Renvela] 800 mg PO AC #90 tablet 03/13/21 05/16/21 05/15/21 08:00 Rx Loperamide [Imodium] 2 mg PO Q6H PRN #30 capsule 03/27/21 05/16/2105/15/22 08:00 Rx Review of Systems ROS: Stated complaint: DIALYSIS TREATMENT Other details as noted in HPI Comment: All other systems reviewed and negative Medications and Allergies Allergies Allergy/AdvReac Type Severity Reaction Status Date / Time ibuprofen AdvReac Unknown Verified 05/23/21 09:23 Home Medications Medication Instructions Recorded Confirmed Last Taken Type Atorvastatin [Lipitor] 40 mg PO QHS 02/03/21 05/24/21 05/23/21 History Sodium Bicarbonate 1,300 mg PO TID 30 Days #180 tablet 02/03/21 05/24/21 05/23/21 Rx glipiZIDE [Glucotrol] 10 mg PO QDAY 02/03/21 05/24/21 05/23/21 History amLODIPine 10 mg PO DAILY #30 tablet 02/26/21 05/24/21 05/23/21 Rx carvediloL [Coreg] 12.5 mg PO BID #60 tablet 02/26/21 05/24/21 05/23/21 Rx calcitrioL [Rocaltrol] 0.5 mcg PO QDAY 30 Days #30 capsule 03/07/21 05/24/21 05/23/21 Rx Sevelamer Carbonate [Renvela] 800 mg PO AC #90 tablet 03/13/21 05/24/21 05/23/21 Rx Loperamide [Imodium] 2 mg PO Q6H PRN #30 capsule 03/27/21 05/24/21 05/23/21 Rx Active Meds: Active Medications Acetaminophen (Acetaminophen 325 Mg Tab) 650 mg PO Q4H PRN PRN Reason: Pain MILD(1-3)/Fever >100.5/[place] Amlodipine Besylate (Amlodipine 10 Mg Tab) 10 mg PO DAILY [facility] Last Admin: 05/23/21 14:30 Dose: Not Given Atorvastatin Calcium (Atorvastatin 40 Mg Tab) 40 mg PO QHS [facility] Last Admin: 05/23/21 21:08 Dose: 40 mg Calcitriol (Calcitriol 0.5 Mcg Cap) 0.5 mcg PO QDAY [facility] Carvedilol (Carvedilol 12.5 Mg Tab) 12.5 mg PO BID [facility] Last Admin: 05/23/21 21:10 Dose: 12.5 mg Epoetin Esvin-epbx (Epoetin Esvin-Epbx 20,000 Unit/1 Ml Vial) 20,000 unit SUB-Q FELI PRN PRN Reason: hemodialysis Famotidine (Famotidine 20 Mg Tab) 20 mg PO BID [facility] Last Admin: 05/23/21 21:11 Dose: 20 mg Glipizide (Glipizide 10 Mg Tab) 10 mg PO QDAY [facility] Heparin Sodium (Porcine) (Heparin 10,000 Units/10 Ml Vial) 3,000 unit IV FELI PRN PRN Reason: hemodialysis Hydromorphone HCl (Hydromorphone 1 Mg/1 Ml Inj) 0.5 mg IV Q3H PRN PRN Reason: Pain , Severe (7-10) Sodium Chloride (Nacl 0.9%) 100 mls @ 999 mls/hr IV FELI PRN PRN Reason: Hypotension Loperamide HCl (Loperamide 2 Mg Cap) 2 mg PO Q6H PRN PRN Reason: Diarrhea Metoclopramide HCl (Metoclopramide 10 Mg/2 Ml Inj) 10 mg IV Q6H PRN PRN Reason: Nausea And Vomiting Ondansetron HCl (Ondansetron 4 Mg/2 Ml Inj) 4 mg IV Q8H PRN PRN Reason: Nausea And Vomiting Oxycodone/Acetaminophen (Oxycodone /Acetaminophen 5-325mg Tab) 1 tab PO Q6H PRN PRN Reason: Pain, Moderate (4-6) Sevelamer Carbonate (Sevelamer Carbonate 800 Mg Tab) 800 mg PO AC [facility] Sodium Bicarbonate (Sodium Bicarbonate 650 Mg Tab) 1,300 mg PO TID [facility] Last Admin: 05/23/21 20:55 Dose: 1,300 mg Sodium Chloride (Sodium Chloride 0.9% 10 Ml Flush Syringe) 10 ml IV BID [facility] Last Admin: 05/23/21 21:12 Dose: Not Given Sodium Chloride (Sodium Chloride 0.9% 10 Ml Flush Syringe) 10 ml IV PRN PRN PRN Reason: LINE FLUSH Exam - Constitutional Vitals: Temp Pulse Resp BP Pulse Ox 97.9 F 89 20 172/88 100 05/23/21 21:00 05/23/21 21:10 05/23/21 18:58 05/23/21 21:10 05/24/21 03:47 General appearance: Present: no acute distress, well-nourished - EENT Eyes: Present: PERRL ENT: hearing intact, clear oral mucosa - Neck Neck: Present: supple, normal ROM - Respiratory Respiratory effort: normal Respiratory: bilateral: CTA - Cardiovascular Heart rate: 73 Rhythm: regular Heart Sounds: Present: S1 & S2. Absent: rub, click - Extremities Extremities: pulses symmetrical, No edema Peripheral Pulses: within normal limits - Abdominal General gastrointestinal: Present: soft, non-tender, non-distended, normal bowel sounds Female genitourinary: Present: normal - Integumentary Integumentary: Present: clear, warm, dry - Musculoskeletal Musculoskeletal: gait normal, strength equal bilaterally - Psychiatric Psychiatric: appropriate mood/affect, intact judgment & insight - Neurologic Neurologic: CNII-XII intact, moves all extremities Results - Labs CBC & Chem 7: 05/24/21 05:10 05/24/21 05:10 Labs: Laboratory Last Values WBC 8.9 K/mm3 (4.5-11.0) 05/24/21 05:10 RBC 2.89 M/mm3 (3.65-5.03) L 05/24/21 05:10 Hgb 8.7 gm/dl (10.1-14.3) L 05/24/21 05:10 Hct 26.5 % (30.3-42.9) L 05/24/21 05:10 MCV 92 fl (79-97) 05/24/21 05:10 MCH 30 pg (28-32) 05/24/21 05:10 MCHC 33 % (30-34) 05/24/21 05:10 RDW 15.7 % (13.2-15.2) H 05/24/21 05:10 Plt Count 208 K/mm3 (140-440) 05/24/21 05:10 Lymph % (Auto) 24.4 % (13.4-35.0) 05/24/21 05:10 [place] % (Auto) 10.0 % (0.0-7.3) H 05/24/21 05:10 Eos % (Auto) 1.4 % (0.0-4.3) 05/24/21 05:10 Baso % (Auto) 0.8 % (0.0-1.8) 05/24/21 05:10 Lymph # (Auto) 2.2 K/mm3 (1.2-5.4) 05/24/21 05:10 [place] # (Auto) 0.9 K/mm3 (0.0-0.8) H 05/24/21 05:10 Eos # (Auto) 0.1 K/mm3 (0.0-0.4) 05/24/21 05:10 Baso # (Auto) 0.1 K/mm3 (0.0-0.1) 05/24/21 05:10 Seg Neutrophils % 63.4 % (40.0-70.0) 05/24/21 05:10 Seg Neutrophils # 5.7 K/mm3 (1.8-7.7) 05/24/21 05:10 Sodium 137 mmol/L (137-145) 05/24/21 05:10 Potassium 3.6 mmol/L (3.6-5.0) D 05/24/21 05:10 Chloride 96.2 mmol/L (98-107) L 05/24/21 05:10 Carbon Dioxide 28 mmol/L (22-30) D 05/24/21 05:10 Anion Gap 16 mmol/L 05/24/21 05:10 BUN 21 mg/dL (7-17) H 05/24/21 05:10 Creatinine 6.3 mg/dL (0.6-1.2) H 05/24/21 05:10 Estimated GFR 8 ml/min 05/24/21 05:10 BUN/Creatinine Ratio 3 % 05/24/21 05:10 Glucose 131 mg/dL (65-100) H 05/24/21 05:10 POC Glucose 170 mg/dL (70-105) H 05/23/21 17:05 Calcium 8.9 mg/dL (8.4-10.2) 05/24/21 05:10 Total Bilirubin 0.90 mg/dL (0.1-1.2) 05/24/21 05:10 AST 11 units/L (5-40) 05/24/21 05:10 ALT 8 units/L (7-56) 05/24/21 05:10 Alkaline Phosphatase 79 units/L (35-129) 05/24/21 05:10 Total Protein 7.6 g/dL (6.3-8.2) 05/24/21 05:10 Albumin 3.5 g/dL (3.9-5) L 05/24/21 05:10 Albumin/Globulin Ratio 0.9 % 05/24/21 05:10 Short CBC 05/23/21 05/24/21 Range/Units 10:46 05:10 WBC 8.9 8.9 (4.5-11.0) K/mm3 Hgb 8.6 L 8.7 L (10.1-14.3) gm/dl Hct 26.1 L 26.5 L (30.3-42.9) % Plt Count 202 208 (140-440) K/mm3 BMP 05/23/21 05/24/21 10:46 05:10 Sodium 138 137 Potassium 5.3 H 3.6 D Chloride 103.3 96.2 L Carbon Dioxide 20 L 28 D BUN 59 H 21 H Creatinine 12.3 H 6.3 H Glucose 210 H 131 H Calcium 8.1 L 8.9 Liver Function 05/24/21 Range/Units 05:10 Total Bilirubin 0.90 (0.1-1.2) mg/dL AST 11 (5-40) units/L ALT 8 (7-56) units/L Alkaline Phosphatase 79 (35-129) units/L Albumin 3.5 L (3.9-5) g/dL Rivas/IV: Voiding Method Toilet Assessment and Plan Advance Directives: Yes (Full code) VTE prophylaxis?: Chemical Plan of care discussed with patient/family: Yes - Patient Problems (1) Volume overload Current Visit: Yes Status: Acute Plan to address problem: Patient is in volume overload Patient missed hemodialysis for 1 week Patient needs emergent hemodialysis for increased ultrafiltration Nephrology consulted (2) ESRD needing dialysis Current Visit: Yes Status: Chronic Plan to address problem: Nephrology consulted for hemodialysis orders (3) Hypertension Current Visit: Yes Status: Chronic Qualifiers: Hypertension type: primary hypertension Qualified Code(s): I10 - Essential (primary) hypertension Plan to address problem: Continue antihypertensives and adjust medications (4) Anemia Current Visit: Yes Status: Acute Qualifiers: Anemia type: due to chronic kidney disease Plan to address problem: Anemia from end-stage renal disease Will defer to nephrology regarding Epogen (5) DVT prophylaxis Current Visit: Yes Status: Acute Plan to address problem: On heparin and GI prophylaxis (6) Advance care planning Current Visit: Yes Status: Acute Plan to address problem: Disease education conducted, care plan discussed, diagnosis discussed, prognosis discussed. Patient is full code. Patient acknowledges understanding and agreement with care plan. +30 minutes.
--- NOTE | 2021-05-24 07:15 | Discharge Summary ---
Providers - Providers Date of Admission: 05/23/21 13:26 Date of discharge: 05/24/21 Attending physician: ZHEN CHAVEZ 05/23/21 11:37 Consult to Physician [CONS] Urgent Comment: Consulting Provider: SHARON DUMONT Physician Instructions: Reason For Exam: esrd needing dialysis Primary care physician: CUSTOMS COLLECTOR Hospitalization Condition: Stable Hospital course: History of present illness: 60-year-old -Sammarinese female with history of end-stage renal disease since January 2021 comes to the hospital requesting dialysis. Patient does not have an outpatient dialysis center chair. Last dialysis was on May 16, 2021. Patient was in the process of getting her hemodialysis center placement. Patient comes once a week for dialysis. Slight shortness of breath present because of increased fluid intake. Otherwise no symptoms. Patient has a history of hypertension and end-stage renal disease. Assessment and Plan Advance Directives: Yes (Full code) VTE prophylaxis?: Chemical Plan of care discussed with patient/family: Yes - Patient Problems (1) Volume overload Current Visit: Yes Status: Acute Plan to address problem: Patient underwent hemodialysis (2) ESRD needing dialysis Current Visit: Yes Status: Chronic Plan to address problem: Patient underwent hemodialysis (3) Hypertension Current Visit: Yes Status: Chronic Qualifiers: Hypertension type: primary hypertension Qualified Code(s): I10 - Essential (primary) hypertension Plan to address problem: Continue antihypertensives and adjust medications (4) Anemia Current Visit: Yes Status: Acute Qualifiers: Anemia type: due to chronic kidney disease Plan to address problem: Anemia from end-stage renal disease Will defer to nephrology regarding Epogen (5) DVT prophylaxis Current Visit: Yes Status: Acute Plan to address problem: On heparin and GI prophylaxis (6) Advance care planning Current Visit: Yes Status: Acute Plan to address problem: Disease education conducted, care plan discussed, diagnosis discussed, prognosis discussed. Patient is full code. Patient acknowledges understanding and agreement with care plan. +30 minutes Disposition: 01 HOME / SELF CARE / HOMELESS Final Discharge Diagnosis (Prints w/discharge instructions): Volume overload. End-stage renal disease needing hemodialysis. Hypertension. Anemia of chronic disease Time spent for discharge: 32 minutes - Discharge Diagnoses (1) Volume overload Status: Acute (2) ESRD needing dialysis Status: Chronic Comment: Continue hemodialysis (3) Hypertension Status: Chronic Qualifiers: Hypertension type: primary hypertension Qualified Code(s): I10 - Essential (primary) hypertension (4) Anemia Status: Acute Qualifiers: Anemia type: due to chronic kidney disease (5) DVT prophylaxis Status: Acute (6) Advance care planning Status: Acute Core Measure Documentation - Palliative Care Palliative Care/ Comfort Measures: Not Applicable - Core Measures Any of the following diagnoses?: none Exam - Constitutional Vitals: Temp Pulse Resp BP Pulse Ox 97.9 F 89 20 172/88 100 05/23/21 21:00 05/23/21 21:10 05/23/21 18:58 05/23/21 21:10 05/24/21 03:47 General appearance: Present: no acute distress, well-nourished - EENT Eyes: Present: PERRL ENT: hearing intact, clear oral mucosa - Neck Neck: Present: supple, normal ROM - Respiratory Respiratory effort: normal Respiratory: bilateral: CTA - Cardiovascular Heart rate: 72 Rhythm: regular Heart Sounds: Present: S1 & S2. Absent: rub, click - Extremities Extremities: pulses symmetrical, No edema Peripheral Pulses: within normal limits - Abdominal General gastrointestinal: Present: soft, non-tender, non-distended, normal bowel sounds Female genitourinary: Present: normal - Integumentary Integumentary: Present: clear, warm, dry - Musculoskeletal Musculoskeletal: gait normal, strength equal bilaterally - Psychiatric Psychiatric: appropriate mood/affect, intact judgment & insight - Neurologic Neurologic: CNII-XII intact, moves all extremities Plan Activity: no restrictions Diet: renal Follow up with: ANTOINE GARCIA MD [Primary Care Provider] - 7 Days SHARON DUMONT MD [Staff Physician] - 7 Days
[2021-05-24] MEDS ORDERED: glipiZIDE 10 MG TAB PO SCH (08:00)
[2021-05-24] MEDS ORDERED: METOCLOPRAMIDE 10 MG/2 ML INJ IV PRN (08:00)
[2021-05-24] MEDS ORDERED: CALCITRIOL 0.5 MCG CAP PO SCH (10:00)
[2021-05-24] MEDS ORDERED: FAMOTIDINE 20 MG TAB PO SCH (22:00)
== END 2021-05-24 07:15 | disposition home or self-care (01) ==
LOC: ED 09:00 → 3A 13:26
PROVIDERS: ADMIT Internal Medicine; ATTEND Internal Medicine
DX: E87.70 Fluid overload, unspecified (principal); I13.2 Hypertensive heart and chronic kidney disease with heart failure and with stage 5 chronic kidney disease, or end stage renal disease; I50.9 Heart failure, unspecified; N18.6 End stage renal disease; D63.1 Anemia in chronic kidney disease; H54.7 Unspecified visual loss; E87.5 Hyperkalemia; E11.65 Type 2 diabetes mellitus with hyperglycemia; E11.22 Type 2 diabetes mellitus with diabetic chronic kidney disease; F17.200 Nicotine dependence, unspecified, uncomplicated; Z99.2 Dependence on renal dialysis; Z79.899 Other long term (current) drug therapy; Z98.890 Other specified postprocedural states
CPT/HCPCS: 36415; 80048; 80053; 82962; 85025; 99284; G0257; G0378

== ENCOUNTER 2021-09-09 05:58 | Day surgery (SDC) | payer MEDICARE ==
[~2021-09-09 05:58] MED LIST: SODIUM CHLORIDE 0.9% 1000 ML 1,000 ML ONE; ceFAZolin/STERILE WATER 2 GM/20 ML SYRINGE IV NR
[2021-09-09] MEDS ORDERED: ceFAZolin/STERILE WATER 2 GM/20 ML SYRINGE IV NR (06:00)
[2021-09-09] MEDS ORDERED: BACTERIOSTATIC SODIUM CHLORIDE 0.9% 30 ML VIAL INFILTRATI ONE (06:36)
[2021-09-09 06:56] LABS: Hematocrit 34.6 % (30.3-42.9); Hemoglobin 11.3 gm/dl (10.1-14.3); Mean Corpuscular HGB Conc 33 % (30-34); Mean Corpuscular Volume 100 fl (79-97); Platelet Count 195 K/mm3 (140-440); Red Blood Count 3.48 M/mm3 (3.65-5.03); Red Cell Distribution Width 16.5 % (13.2-15.2)
[2021-09-09] MEDS ORDERED: fentaNYL 100 MCG/2 ML INJ IV SCH (07:00)
[2021-09-09] MEDS ORDERED: MIDAZOLAM 2 MG/2 ML INJ IV SCH (07:00)
[2021-09-09] MEDS ORDERED: propofoL 200 MG/20 ML VIAL IV ONE ×2 (07:17→08:36)
[2021-09-09 07:22] LABS: Calcium 10.8 mg/dL (8.4-10.2)
[2021-09-09] MEDS ORDERED: dexAMETHasone 4 MG/ML VIAL ONE (07:25)
[2021-09-09] MEDS ORDERED: BUPIVACAINE/PF (0.25%) 2.5 MG/ML 30 ML VIAL INFILTRATI ONE (07:26)
[2021-09-09] MEDS ORDERED: LIDOCAINE (1%) 10 MG/1 ML VIAL 20 ML MDV ONE (07:27)
[2021-09-09] MEDS ORDERED: BUPIVACAINE/PF (0.5%) 5 MG/1 ML 30 ML VIAL INFILTRATI ONE (07:30)
[2021-09-09] MEDS ORDERED: SODIUM CHLORIDE 0.9% 500 ML 500 ML ONE (07:30)
[2021-09-09] MEDS ORDERED: HEPARIN 10,000 UNITS/10 ML VIAL ONE (07:30)
--- NOTE | 2021-09-09 07:37 | Anesthesia Day of Surgery ---
Anesthesia Day of Surgery - Day of Surgery Patient Examined: Yes Patient H&P Reviewed: Yes Patient is NPO: Yes
[2021-09-09] MEDS ORDERED: MIDAZOLAM 2 MG/2 ML INJ ONE (07:39)
[2021-09-09] MEDS ORDERED: fentaNYL 100 MCG/2 ML INJ ONE (07:39)
--- NOTE | 2021-09-09 07:40 | Anesthesia Consultation ---
Anesthesia Consult and Med Hx Date of service: 09/09/21 - Airway ROM Head & Neck: Adequate Mental/Hyoid Distance: Adequate Mallampati Class: Class I Intubation Access Assessment: Good - Cardiac Exam Cardiac Exam: RRR - Pre-Operative Health Status ASA Pre-Surgery Classification: ASA3 Nerve Block: axillary - Pulmonary Hx Asthma: No COPD: No Hx Pneumonia: No - Cardiovascular System Hx Hypertension: Yes - Endocrine Hx End Stage Renal Disease: Yes - Hematic Hx Anemia: Yes - Other Systems Hx Alcohol Use: No Hx Cancer: No
--- NOTE | 2021-09-09 08:08 | Short Stay Summary ---
Short Stay Documentation Date of service: 09/09/21 Narrative H&P: The patient is a 61-year-old female with a history of end-stage renal disease who is currently on hemodialysis through a right internal jugular permacath. She is right-hand dominant and is in need of creation of permanent dialysis access. I performed a bedside ultrasound that demonstrated she is an adequate candidate for creation of a left brachiocephalic arteriovenous fistula. She was given the risk, benefits, and alternative procedures and has consented to the procedure. - History Principal diagnosis: End-Stage Renal Disease Past Medical History: diabetes, dialysis, ESRD, PVD, other (Blindness bilateral eyes) Past Surgical History: Other (Left great toe amputation) Social history: no significant social history - Allergies and Medications Current Medications: Allergies ibuprofen Adverse Reaction (Verified 05/23/21 09:23) Unknown Patient can not take because of renal failure. Home Medications Medication Instructions Recorded Confirmed Last Taken Type Atorvastatin [Lipitor] 40 mg PO QHS 02/03/21 08/13/21 08/13/21 History glipiZIDE [Glucotrol] 10 mg PO QDAY 02/03/21 08/13/21 08/13/21 History amLODIPine 10 mg PO DAILY #30 tablet 02/26/21 08/13/21 08/13/21 Rx carvediloL [Coreg] 12.5 mg PO BID #60 tablet 02/26/21 08/13/21 08/13/21 Rx calcitrioL [Rocaltrol] 0.5 mcg PO QDAY 30 Days #30 capsule 03/07/21 08/13/21 08/13/21 Rx Sevelamer Carbonate [Renvela] 800 mg PO AC #90 tablet 03/13/21 08/13/21 08/13/21 Rx Loperamide [Imodium] 2 mg PO Q6H PRN #30 capsule 03/27/21 08/13/21 08/13/21 Rx Active Medications Cefazolin Sodium (Cefazolin/Sterile Water 2 Gm/20 Ml Syringe) 2 gm IV PREOP NR Stop: 09/09/21 23:59 Fentanyl (Fentanyl 100 Mcg/2 Ml Inj) 100 mcg IV ONCE ONE Stop: 09/09/21 07:42 Midazolam HCl (Midazolam 2 Mg/2 Ml Inj) 2 mg IV ONCE ONE Stop: 09/09/21 07:41 - Physical exam General appearance: no acute distress HEENT: Other (Right internal jugular permacath without overt signs of infection) Lungs: Normal air movement Breasts: deferred Heart: Regular rate Gastrointestinal: normal Female Genitourinary: deferred Rectal Exam: deferred Extremities: no ischemia, pulses intact (Palpable radial pulses bilaterally) - Brief post op/procedure progress note Date of procedure: 09/09/21 Pre-op diagnosis: End-Stage Renal Disease Post-op diagnosis: same Procedure: Creation of Left Brachiocephalic Arteriovenous Fistula Anesthesia: CLIFTONA, regional Surgeon: ZHEN MEZA Estimated blood loss: minimal Pathology: none Condition: stable - Disposition Condition at discharge: Good Disposition: 01 HOME / SELF CARE / HOMELESS Short Stay Discharge Plan Activity: other (No heavy lifting with left arm for 2 weeks. Use stress ball with left hand as often as possible.) Wound: open to air, keep clean and dry, other (Okay to wash the left arm incision with soap and water but do not soak in water for 2 weeks.) Follow up with: ZHEN MEZA MD [Staff Physician] - 14 Days Prescriptions: HYDROcodone/APAP 5-325 [[place] 5/325] 1 each PO Q4HR PRN #30 tablet PRN Reason: Pain
[2021-09-09] MEDS ORDERED: HEPARIN 10,000 UNITS/10 ML VIAL IR ONE (08:50)
[2021-09-09] MEDS ORDERED: SODIUM CHLORIDE 0.9% IRR 1,500 ML BOTTLE IR ONE (08:50)
[2021-09-09] MEDS ORDERED: SODIUM CHLORIDE 0.9% 500 ML IVPB IRRIGATION ONE (08:50)
--- NOTE | 2021-09-09 09:46 | Operative Report ---
Operative Report Operative Report: Date of procedure: 09/09/2021 Pre-operative diagnosis: End-Stage Renal Disease Post-operative diagnosis: End-Stage Renal Disease Procedure(s): Creation of Left Brachial Artery to Cephalic Vein Arteriovenous Fistula Surgeon: Jonathan Russell MD Carpenter And Joiner: None Anesthesia: Regional/LMA EBL: Minimal Counts: Correct Complications: None Condition: Stable Findings: Successful creation of left brachiocephalic arteriovenous fistula with palpable thrill and palpable radial pulse at the completion of the case. Specimen: None Indications: The patient is a 61-year-old female with a history of end-stage renal disease who is currently on hemodialysis through a right internal jugular permacath. She is in need of permanent dialysis access and was found to be a suitable candidate for creation of a left brachiocephalic arteriovenous fistula. She was given the risk, benefits, and alternative procedures and consented to the procedure. Description of Procedure: The patient had a regional block of the patient's left arm was performed in the preoperative area prior to being transported to the operating room. Once the regional block was performed the patient was transported to the operating room and adequate sedation was given. When the patient was sedated a timeout was performed and the patient's lower arm was then prepped and draped in normal sterile fashion. A transverse incision was then made and carried down to the cephalic vein using sharp dissection. The vein was dissected out both proximally and distally and suture ligated and divided distally. I flushed the vein with heparinized saline and flow was controlled with a bulldog clamp. I then dissected out the brachial artery through this incision circumferentially both proximal and distal and controlled the artery with vessel loops. I systemically heparinized the patient with 3000 units of heparin IV and used angled DeBakey clamps to control flow through the artery. I created an arteriotomy using an 11 blade and June scissors. I created an end to side anastomosis between the cephalic vein and brachial artery using a 6-0 Prolene in running fashion. Prior to completing the anastomosis I flashed the artery both proximally and distally and then flushed the anastomosis with heparinized saline to remove any debris. I then completed the anastomosis and removed all clamps allowing flow into the fistula which had an adequate thrill. I achieved hemostasis with a combination of Quick Clot and electrocautery. Once hemostasis had been achieved I closed the wound in 2 layers using a 3-0 Vicryl in a running fashion in the deep dermal layer and a 4-0 Monocryl in running fashion in the subcuticular layer. I then dressed the wound with Dermabond. The patient tolerated the procedure well. All sponge, needle, and instrument counts were correct. The patient was taken to the recovery area in stable condition.
[2021-09-09 12:05] VITALS: BP 169/86
--- NOTE | 2021-09-09 17:40 | Post Anesthesia Evaluation ---
- Post Anesthesia Evaluation Patient Participated: Yes Airway Patent: Yes Stable Respiratory Function: Yes Nausea/Vomiting: No Temp > 96.8F: Yes Pain Manageable: Yes Adequeate Hydration: Yes Anesthesia Complications: No Block Receding Appropriately: Yes Patient on Ventilator: No
== END 2021-09-09 11:00 | disposition home or self-care (01) ==
LOC: OR 05:58
PROVIDERS: ATTEND Surgery Vascular Surgery
DX: I13.2 Hypertensive heart and chronic kidney disease with heart failure and with stage 5 chronic kidney disease, or end stage renal disease (principal); E11.22 Type 2 diabetes mellitus with diabetic chronic kidney disease; N18.6 End stage renal disease; I50.9 Heart failure, unspecified; F32.9 Major depressive disorder, single episode, unspecified; D64.9 Anemia, unspecified; E11.65 Type 2 diabetes mellitus with hyperglycemia; G93.41 Metabolic encephalopathy; E78.2 Mixed hyperlipidemia; I25.2 Old myocardial infarction; Z98.890 Other specified postprocedural states; Z79.899 Other long term (current) drug therapy; Z87.01 Personal history of pneumonia (recurrent); Z88.8 Allergy status to other drugs, medicaments and biological substances
CPT/HCPCS: 36415; 36821; 64417; 80048; 82962; 85027; J0690; J1100; J1644; J2250; J2704; J3010; J3490; J7030; J7040; 64450